=== PATIENT | male | born 1965 | race Caucasian/White ===

== ENCOUNTER 2018-11-12 21:36 | Inpatient (IN) | payer SELFPAY ==
[2018-11-12 22:26] LABS: Glucose Confirmatory 597 mg/dL (70-100)
[2018-11-12] MEDS ORDERED: NS 0.9% 1000 ML** 1,000 ML IV ONE ×2 (22:34→23:52)
[2018-11-12 22:47] LABS: ALT 13 U/L (7-52); AST 20 U/L (13-39); Albumin 4.3 g/dL (3.2-5.2); Albumin/Globulin Ratio 1.2 (1-3); Alkaline Phosphatase 194 U/L (34-104); Anion Gap 18 mmol/L (2-11); BUN/Creatinine Ratio 20.4 (8-20); Blood Urea Nitrogen 20 mg/dL (6-24); C Reactive Protein 11.64 mg/L (<8.01); CO2 Carbon Dioxide 18 mmol/L (22-32); Calcium 10.3 mg/dL (8.6-10.3); Chloride 93 mmol/L (101-111); Globulin 3.7 g/dL (2-4); Potassium 3.9 mmol/L (3.5-5.0); Sodium 129 mmol/L (135-145)
[2018-11-12 22:56] LABS: Glucose 603 mg/dL (70-100)
[2018-11-12 23:11] LABS: Hematocrit 25 % (42-52); Hemoglobin 7.1 g/dL (14.0-18.0); Mean Corpuscular HGB Conc 28 g/dL (31-36); Mean Corpuscular Hemoglobin 16 pg (27-31); Mean Corpuscular Volume 58 fL (80-94); Red Cell Distribution Width 22 % (10.5-15); White Blood Count 6.9 10^3/uL (3.5-10.8)
[2018-11-12 23:24] LABS: ABS Basophils 0.1 10^3/ul (0-0.2); ABS Eosinophils 0.2 10^3/ul (0-0.6); ABS Lymphocytes 1.1 10^3/ul (1.0-4.8); ABS Monocytes 0.8 10^3/ul (0-0.8); ABS Neutrophils 4.6 10^3/ul (1.5-7.7); Eosinophil % 2.9 %; Lymphocyte % 16.6 %; Mean Platelet Volume 9.1 fL (7.4-10.4); Nucleated Red Blood Cells % 0.2; Platelet Count 73 10^3/uL (150-450)
[2018-11-12 23:25] LABS: Microcytosis 3+; Polychromasia 1+
--- NOTE | 2018-11-12 23:28 | ED ---
Complex/Multi-Sys Presentation - HPI Summary HPI Summary: Patient complains of polyuria, polydipsia 3 weeks. Denies fever, cough, sore throat, CP, SOB, N/V/D, abdominal pain, change in urine, change in BM. Does admit to occasional blood in stool from hemorrhoids. Medical history is heartburn. - History Of Current Complaint Chief Complaint: EDDiabeticProb Time Seen by Provider: 11/12/18 22:20 Hx Obtained From: Patient Onset/Duration: Gradual Onset, Lasting Weeks Timing: Intermittent, Lasting: Severity Currently: Moderate Severity Initially: Moderate - Allergies/Home Medications Allergies/Adverse Reactions: Allergies Allergy/AdvReac Type Severity Reaction Status Date / Time No Known Allergies Allergy Verified 11/12/18 22:21 Home Medications: Home Medications NK [No Home Medications Reported] 11/13/18 [History Confirmed 11/13/18] PMH/Surg Hx/FS Hx/Imm Hx Endocrine/Hematology History: Denies: Hx Anticoagulant Therapy Cardiovascular History: Reports: Hx Hypertension Respiratory History: Reports: Other Respiratory Problems/Disorders - HOSPITALIZED FOR PLEURAL EFFUSION 11/2014. History: Reports: Hx Acute Renal Failure - this admission, no history Sensory History: Reports: Hx Contacts or Glasses Opthamlomology History: Reports: Hx Contacts or Glasses EENT History: Denies: Hx Deafness Neurological History: Reports: Hx Seizures - last seizure three weeks ago Psychiatric History: Reports: Hx Anxiety, Hx Depression, Hx Substance Abuse - Surgical History Surgery Procedure, Year, and Place: Right & left inguinal, umbilical hernia surgeries (all 15+ years ago) Hx Anesthesia Reactions: No - Immunization History Date of Tetanus Vaccine: utd Date of Influenza Vaccine: none Infectious Disease History: No Infectious Disease History: Denies: Traveled Outside the [place] in Last 30 Days - Family History Known Family History: Positive: Unknown - Patient adopted - Social History Alcohol Use: None Alcohol Amount: 1+ pints vodka/d Substance Use Type: Reports: None Substance Use Comment - Amount & Last Used: very rarely Smoking Status (MU): Never Smoked Tobacco Review of Systems Constitutional: Negative Eyes: Negative ENT: Negative Cardiovascular: Negative Respiratory: Negative Gastrointestinal: Negative Positive: frequency Musculoskeletal: Negative Skin: Negative Neurological: Negative Psychological: Normal All Other Systems Reviewed And Are Negative: Yes Physical Exam - Summary Physical Exam Summary: Abdomen soft nontender. Lung sounds clear to auscultation bilaterally. Or gallop. No peripheral edema. Triage Information Reviewed: Yes Vital Signs On Initial Exam: Initial Vitals Temp Pulse Resp BP Pulse Ox 99 F 100 20 162/96 99 11/12/18 21:42 11/12/18 21:42 11/12/18 21:42 11/12/18 21:42 11/12/18 21:42 Vital Signs Reviewed: Yes Appearance: Positive: Well-Appearing Skin: Positive: Warm Head/Face: Positive: Normal Head/Face Inspection Eyes: Positive: Normal Neck: Positive: Supple Respiratory/Lung Sounds: Positive: Clear to Auscultation Cardiovascular: Positive: Normal Abdomen Description: Positive: Nontender Musculoskeletal: Positive: Normal Neurological: Positive: Normal Psychiatric: Positive: Normal AVPU Assessment: Alert - Liu Coma Scale Best Eye Response: 4 - Spontaneous Best Motor Response: 6 - Obeys Commands Best Verbal Response: 5 - Oriented Coma Scale Total: 15 Diagnostics - Vital Signs Vital Signs Temp Pulse Resp BP Pulse Ox 11/12/18 21:42 99 F 100 20 162/96 99 - Laboratory Lab Results: Lab Results 11/12/18 11/12/18 11/12/18 Range/Units 21:51 21:57 21:57 WBC (3.5-10.8) 10^3/uL RBC (4.18-5.48) 10^6 /uL Hgb (14.0-18.0) g/dL Hct (42-52) % MCV (80-94) fL MCH (27-31) pg MCHC (31-36) g/dL RDW (10.5-15) % Plt Count (150-450) 10^3/uL MPV (7.4-10.4) fL Neut % (Auto) % Lymph % (Auto) % [place] % (Auto) % Eos % (Auto) % Baso % (Auto) % Absolute Neuts (auto) (1.5-7.7) 10^3/ul Absolute Lymphs (auto) (1.0-4.8) 10^3/ul Absolute Monos (auto) (0-0.8) 10^3/ul Absolute Eos (auto) (0-0.6) 10^3/ul Absolute Basos (auto) (0-0.2) 10^3/ul Absolute Nucleated RBC 10^3/ul Nucleated RBC % Polychromasia Hypochromasia Anisocytosis Microcytosis Hem Pathologist Commnt VBG pH (7.32-7.43) VBG pCO2 (41-51) mmHg VBG pO2 (35-45) mmHg VBG HCO3 (24-28) mmol/L VBG O2 Saturation (70-80) % VBG Base Excess (0.0-4.0) mmol/L Sodium 129 L (135-145) mmol/L Potassium 3.9 (3.5-5.0) mmol/L Chloride 93 L (101-111) mmol/L Carbon Dioxide 18 L (22-32) mmol/L Anion Gap 18 H (2-11) mmol/L BUN 20 (6-24) mg/dL Creatinine 0.98 (0.67-1.17) mg/dL Est GFR ( Amer) 98.0 (>60) Est GFR (Non-Af Amer) 81.0 (>60) BUN/Creatinine Ratio 20.4 H (8-20) Glucose 603 H* (70-100) mg/dL POC Glucose (mg/dL) > 444 H* (70-100) mg/dL Glucose Meter Confirm 597 H* (70-100) mg/dL Lactic Acid 1.4 (0.5-2.0) mmol/L Calcium 10.3 (8.6-10.3) mg/dL Magnesium Pending Iron Pending TIBC Pending % Saturation Pending Unsat Iron Binding Pending Transferrin Pending Ferritin Pending Total Bilirubin 2.00 H (0.2-1.0) mg/dL AST 20 (13-39) U/L ALT 13 (7-52) U/L Alkaline Phosphatase 194 H (34-104) U/L C-Reactive Protein 11.64 H (<8.01) mg/L Total Protein 8.0 (6.4-8.9) g/dL Albumin 4.3 (3.2-5.2) g/dL Globulin 3.7 (2-4) g/dL Albumin/Globulin Ratio 1.2 (1-3) Lipase 236 H (11.0-82.0) U/L TSH Pending 11/12/18 11/12/18 Range/Units 22:35 22:49 WBC 6.9 (3.5-10.8) 10^3/uL RBC 4.30 (4.18-5.48) 10^6 /uL Hgb 7.1 L (14.0-18.0) g/dL Hct 25 L (42-52) % MCV 58 L (80-94) fL MCH 16 L (27-31) pg MCHC 28 L (31-36) g/dL RDW 22 H (10.5-15) % Plt Count 73 L (150-450) 10^3/uL MPV 9.1 (7.4-10.4) fL Neut % (Auto) 67.0 % Lymph % (Auto) 16.6 % [place] % (Auto) 12.3 % Eos % (Auto) 2.9 % Baso % (Auto) 1.2 % Absolute Neuts (auto) 4.6 (1.5-7.7) 10^3/ul Absolute Lymphs (auto) 1.1 (1.0-4.8) 10^3/ul Absolute Monos (auto) 0.8 (0-0.8) 10^3/ul Absolute Eos (auto) 0.2 (0-0.6) 10^3/ul Absolute Basos (auto) 0.1 (0-0.2) 10^3/ul Absolute Nucleated RBC 0.0 10^3/ul Nucleated RBC % 0.2 Polychromasia 1+ Hypochromasia 1+ Anisocytosis 2+ Microcytosis 3+ Hem Pathologist Commnt Pending VBG pH 7.42 (7.32-7.43) VBG pCO2 32 L (41-51) mmHg VBG pO2 57.0 H (35-45) mmHg VBG HCO3 22.4 L (24-28) mmol/L VBG O2 Saturation 86.5 H (70-80) % VBG Base Excess -2.8 L (0.0-4.0) mmol/L Sodium (135-145) mmol/L Potassium (3.5-5.0) mmol/L Chloride (101-111) mmol/L Carbon Dioxide (22-32) mmol/L Anion Gap (2-11) mmol/L BUN (6-24) mg/dL Creatinine (0.67-1.17) mg/dL Est GFR ( Amer) (>60) Est GFR (Non-Af Amer) (>60) BUN/Creatinine Ratio (8-20) Glucose (70-100) mg/dL POC Glucose (mg/dL) (70-100) mg/dL Glucose Meter Confirm (70-100) mg/dL Lactic Acid (0.5-2.0) mmol/L Calcium (8.6-10.3) mg/dL Magnesium Iron TIBC % Saturation Unsat Iron Binding Transferrin Ferritin Total Bilirubin (0.2-1.0) mg/dL AST (13-39) U/L ALT (7-52) U/L Alkaline Phosphatase (34-104) U/L C-Reactive Protein (<8.01) mg/L Total Protein (6.4-8.9) g/dL Albumin (3.2-5.2) g/dL Globulin (2-4) g/dL Albumin/Globulin Ratio (1-3) Lipase (11.0-82.0) U/L TSH Result Diagrams: 11/13/18 16:19 11/13/18 06:25 Lab Statement: Any lab studies that have been ordered have been reviewed, and results considered in the medical decision making process. Complex Multi-Symp Course/Dx Course Of Treatment: Patient complains of polyuria, polydipsia 3 weeks. Denies fever, cough, sore throat, CP, SOB, N/V/D, abdominal pain, change in urine, change in BM. Does admit to occasional blood in stool from hemorrhoids. Medical history is heartburn. Physical exam:Abdomen soft nontender. Lung sounds clear to auscultation bilaterally. Or gallop. No peripheral edema. Vital signs within normal limits. BGL 600. Anion gap 18. Carbon dioxide 18. Lipase 236. No prior history of diabetes. Hemoglobin 7.1. Hematocrit 25. Hemoccult positive. Patient admitted to hospitalist for DKA and anemia. - Diagnoses Provider Diagnoses: DKA (diabetic ketoacidoses), Diabetes mellitus, new onset, Anemia Discharge - Sign-Out/Discharge Documenting (check all that apply): Patient Departure - Discharge Plan Condition: Fair Disposition: ADMITTED TO [facility] - Billing Disposition and Condition Condition: FAIR Disposition: Admitted to [facility]
[2018-11-12 23:32] LABS: Urine Appearance Clear; Urine Bilirubin Negative (Negative); Urine Blood Negative (Negative); Urine Color Straw; Urine Glucose 3+(>=500 mg/dL) (Negative); Urine Ketones 1+ (Negative); Urine Nitrite Negative (Negative); Urine Protein Negative (Negative); Urine Specific Gravity 1.027 (1.010-1.030); Urine Urobilinogen Negative (Negative)
[2018-11-12 23:40] LABS: Total Iron Binding Capacity 539 mcg/dL (250-450); Transferrin 385 mg/dL (203-362)
[2018-11-12 23:42] LABS: % Iron Saturation 3 % (15-55); Iron < 17 ug/dL (50-212)
[2018-11-12] MEDS ORDERED: Al Hydrox/Mg Hydrox/Simet LIQ* 30 ML UDC PO PRN (23:46)
[2018-11-12] MEDS ORDERED: Docusate CAP* 100 MG PO PRN (23:46)
[2018-11-12] MEDS ORDERED: Senna TAB PO PRN (23:46)
[2018-11-12] MEDS ORDERED: Acetaminophen TAB* 325 MG PO PRN (23:46)
[2018-11-12] MEDS ORDERED: Ondansetron INJ* 2 MG/ML VIAL IV PRN (23:46)
[2018-11-12 23:56] LABS: TSH (Thyroid Stimulating Horm) 2.61 mcIU/mL (0.34-5.60)
[2018-11-13 00:02] LABS: Ferritin 7.3 ng/mL (24-336)
[2018-11-13 00:25] LABS: Alcohol < 10 mg/dL (<10)
[2018-11-13] MEDS: NS 0.9% 1000 ML** 1,000 ML IV ONE ×2 (00:30→02:10)
--- NOTE | 2018-11-13 01:29 | HP ---
HISTORY AND PHYSICAL: DATE OF ADMISSION: 11/12/18 TIME OF EVALUATION: 2300. PRIMARY CARE PHYSICIAN: The patient does not have a primary care physician. CHIEF COMPLAINT: Polyuria, polydipsia. HISTORY OF PRESENT ILLNESS: This 52-year-old male with past medical history of prediabetes who presented to emergency room after his partner convinced him of checking his sugar. The partner has diabetes and she has a glucometer. She is also a case packer and sealer/nurse here. He has had about a few weeks of increased nocturia, 4 to 5 times at night and has gotten progressively worse with increased polyuria and polydipsia. He finally checked his sugar this evening and they did record it was so high, so he was finally convinced to come to the emergency room for further evaluation. The patient states that he had a chest cold a few weeks ago, otherwise, no lightheadedness. No dizziness. No chest pain. No shortness of breath. He has been fatigued. No abdominal pain. He has had constipation. He had a bowel movement today where he had strained and there was some blood on the toilet paper. He has had a history of bloody diarrhea when he was in college many years ago. They did a colonoscopy at that time and they thought it was viral and then he had a second colonoscopy many years ago that was unremarkable. He has had a history of diverticulitis in the past and a history of hemorrhoids. The patient denies black stools and just the blood on the toilet paper that he had today. Otherwise, remaining review of systems is negative. In the emergency room, the patient had labs. He is found to be hyperglycemic and anemic. He was given a L of fluid and referred to the hospitalist service for further evaluation. PAST MEDICAL HISTORY: 1. History of diverticulitis. 2. History of hemorrhoids. 3. History of GI bleed. 4. Prediabetes. 5. Constipation. 6. History of alcohol. MEDICATIONS: Prilosec just started a few days ago for a dry cough, was initially b.i.d. and now daily. ALLERGIES: No known drug allergies. FAMILY HISTORY: The patient is adopted. 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 He quit smoking about a year ago, was only smoking 3 cigarettes a day, but in his 20s he smoked a pack per day. The patient has a history of heavy alcohol use. He stopped drinking 6 months ago. He does start and stop in the past. No illicit drug use. Healthcare proxy is Francine who is the case packer and sealer here on the fourth floor. Code status is full code. REVIEW OF SYSTEMS: A 14-point review of systems as mentioned in the HPI, otherwise negative. PHYSICAL EXAMINATION GENERAL: In no acute distress, resting comfortably with his girlfriend at the bedside. VITAL SIGNS: Temp T-max 99, pulse rate 73, respiratory rate 14, oxygen saturation 99% on room air, blood pressure 128/81. HEENT: Head: Normocephalic. Pupils are equal and reactive. Sclerae anicteric. Oropharynx: Mucous membranes moist. NECK: Supple. No lymphadenopathy. RESPIRATORY: Diminished breath sounds with no rhonchi or rales. CARDIAC: Regular rate and rhythm. Soft systolic murmur heard throughout. ABDOMEN: Soft, nontender, nondistended. EXTREMITIES: No clubbing, cyanosis or edema. +2 DP. NEUROLOGIC: Alert and oriented x3. No gross focal neurologic deficits. LABORATORY DATA: White count 6.9, hemoglobin 7.1, hematocrit 25, platelets 73 , MCV of 58, venous pH 7.4. Sodium 129, potassium 3.9, chloride 93, bicarb 18, anion gap 18, glucose 603, lactic acid 1.4, mag of 2, total bili of 2, CRP of 11 , lipase 236. UA shows +1 ketones, +3 glucose. ASSESSMENT: This is a 52-year-old male with past medical history of prediabetes who presents with polyuria, polydipsia and elevated glucose. 1. Hyperosmolar hyperglycemic state. The patient with a mild anion gap. Continue with aggressive fluid rescucitation. No indication for insulin drip. Will start with Lantus 10 units and lispro sliding scale. Check HgbA1c. The patient will benefit from Endocrinology consultation and diabetes education 2. Microcytic anemia. Assessment: The patient denies any black stools. He had some blood on his toilet paper from likely hemorrhoids. His exam in the emergency room showed brown stool and hemorrhoids. However, his H and H has been low in the past, but most recently back in 2014 it was 15. He is asymptomatic, I suspect an occult upper gastrointestinal bleed. Plan: We will continue him on clear liquids. Continue him on pantoprazole p.o. b.i.d. and ferrous sulfate b.i.d. We will contact GI in the morning for likely EGD, check an alcohol level as well though the patient states he has stopped drinking. I suspect this is related to his alcohol use in the past. 3. FEN: As mentioned, clear liquids IV fluids, diabetic diet. 4. DVT prophylaxis: The patient scores moderate. We will place him on SCDs. 5. Thrombocytopenia. I suspect this is related to his heavy alcohol use in the past. 6. Code status: Full code. TIME SPENT: Greater than 45 minutes was spent doing the history and physical, more than half the time spent in direct patient contact. [id number]/CPS #: [id number] [id number]
[2018-11-13] MEDS: Pantoprazole TAB * 40 MG TAB PO SCH ×3 (02:12→21:27)
[2018-11-13 02:28] LABS: Calcium 9.1 mg/dL (8.6-10.3); EGFR African American 122.1 (>60); EGFR Non-African American 100.9 (>60); Potassium 3.5 mmol/L (3.5-5.0)
[2018-11-13] MEDS ORDERED: Dextrose 50% Syringe 50 ML* 25 GM/50 ML SYRINGE IV PUSH PRN (02:37)
[2018-11-13] MEDS ORDERED: NS 0.9% 1000 ML** 1,000 ML IV SCH (02:45)
[2018-11-13 02:52] LABS: Hematocrit 24 % (42-52); Hemoglobin 6.8 g/dL (14.0-18.0)
[2018-11-13] MEDS ORDERED: Insulin GLARGINE(*) 1 UNITS UNIT SUBCUT SCH (03:00)
[2018-11-13 07:13] LABS: Hematocrit 23 % (42-52); Hemoglobin 6.6 g/dL (14.0-18.0); Mean Corpuscular HGB Conc 29 g/dL (31-36); Mean Corpuscular Hemoglobin 17 pg (27-31); Mean Corpuscular Volume 57 fL (80-94); Red Cell Distribution Width 21 % (10.5-15)
[2018-11-13 07:16] LABS: BUN/Creatinine Ratio 20.3 (8-20); Calcium 8.6 mg/dL (8.6-10.3); EGFR African American 146.9 (>60); EGFR Non-African American 121.4 (>60); HDL Cholesterol 28.5 mg/dL; Magnesium 1.7 mg/dL (1.9-2.7); Potassium 3.5 mmol/L (3.5-5.0)
[2018-11-13 08:30] LABS: ABS Basophils 0.1 10^3/ul (0-0.2); ABS Eosinophils 0.2 10^3/ul (0-0.6); ABS Monocytes 0.5 10^3/ul (0-0.8); ABS Neutrophils 3.3 10^3/ul (1.5-7.7); Eosinophil % 4.5 %; Lymphocyte % 20.2 %; Mean Platelet Volume 9.5 fL (7.4-10.4); Nucleated Red Blood Cells % 0.1; Platelet Count 42 10^3/uL (150-450)
[2018-11-13] MEDS: Ferrous Sulfate TAB* 325 MG PO SCH ×2 (08:33→21:27)
[2018-11-13] MEDS: Insulin LISPRO* 1 UNITS UNIT SUBCUT SCH ×3 (08:33→17:16)
--- NOTE | 2018-11-13 09:15 | PN ---
Subjective Date of Service: 11/13/18 Interval History: Patient is feeling well this morning. He reports he does not have a primary care provider because he has moved frequently in the last several years. He has now been in [place] for one year. His urinary frequency/urgency has improved. He denies abd pain, nausea, vomiting ,diarrhea, fever/chills, chest pain, dizziness , difficulty breathing. He has not yet had a bowel movement today. His significant other, Francine the machine adjuster leader case trim who works here at [employer] [place], reports that patient has been sober for 6 months. Previous heavy drinker, about 6 months ago became jaundice and felt ill and has not had a drink since, per Francine. Objective Active Medications: Acetaminophen (Tylenol Tab*) 650 mg PO Q4H PRN PRN Reason: FEVER/PAIN Last Admin: 11/13/18 02:15 Dose: 650 mg Al Hydrox/Mg Hydrox/Simethicone (Maalox Plus*) 30 ml PO Q6H PRN PRN Reason: INDIGESTION Dextrose (D50w Syringe 50 Ml*) 12.5 gm IV PUSH .FOR FS < 60 - SS PRN PRN Reason: FS < 60 Docusate Sodium (Colace Cap*) 100 mg PO BID PRN PRN Reason: CONSTIPATION Ferrous Sulfate (Ferrous Sulfate Tab*) 325 mg PO BID [facility] Last Admin: 11/13/18 08:33 Dose: 325 mg Sodium Chloride (Ns 0.9% 1000 Ml) 1,000 mls @ 150 mls/hr IV PER RATE [facility] Last Admin: 11/13/18 03:43 Dose: 150 mls/hr Insulin Glargine (Lantus(*)) 15 units SUBCUT Q24HR [facility] Last Admin: 11/13/18 03:46 Dose: 15 unit Insulin Human Lispro (Humalog*) 0 units SUBCUT AC [facility]; Protocol Last Admin: 11/13/18 08:33 Dose: 6 units Ondansetron HCl (Zofran Inj*) 4 mg IV Q4H PRN PRN Reason: NAUSEA/VOMITING Pantoprazole Sodium (Protonix Tab*) 40 mg PO BID [facility] Last Admin: 11/13/18 08:33 Dose: 40 mg Senna (Senokot Tab*) 1 tab PO BID PRN PRN Reason: CONSTIPATION Vital Signs - 8 hr 11/13/18 11/13/18 11/13/18 01:24 01:50 02:10 Temperature 100 F 98.2 F Pulse Rate 78 78 75 Respiratory 22 22 16 Rate Blood Pressure 147/89 147/89 140/76 (mmHg) O2 Sat by Pulse 99 99 99 Oximetry Oxygen Devices in Use Now: None Appearance: Middle aged white male, laying comfortably in hospital bed, appearing in NAD Eyes: No Scleral Icterus, PERRLA Ears/Nose/Mouth/Throat: Mucous Membranes Moist Neck: NL Appearance and Movements; NL JVP Respiratory: Symmetrical Chest Expansion and Respiratory Effort, Clear to Auscultation Cardiovascular: NL Sounds; No Murmurs; No JVD, RRR Abdominal: - - abdomen soft, nontender, nondistended Extremities: No Edema, No Clubbing, Cyanosis, - - neg calf tenderness Skin: No Rash or Ulcers Neurological: Alert and Oriented x 3, NL Muscle Strength and Tone Result Diagrams: 11/13/18 16:19 11/13/18 06:25 Additional Lab and Data: Lab Results 11/12/18 11/12/18 11/12/18 Range/Units 21:51 21:57 21:57 WBC (3.5-10.8) 10^3/uL RBC (4.18-5.48) 10^6 /uL Hgb (14.0-18.0) g/dL Hct (42-52) % MCV (80-94) fL MCH (27-31) pg MCHC (31-36) g/dL RDW (10.5-15) % Plt Count (150-450) 10^3/uL MPV (7.4-10.4) fL Neut % (Auto) % Lymph % (Auto) % [place] % (Auto) % Eos % (Auto) % Baso % (Auto) % Absolute Neuts (auto) (1.5-7.7) 10^3/ul Absolute Lymphs (auto) (1.0-4.8) 10^3/ul Absolute Monos (auto) (0-0.8) 10^3/ul Absolute Eos (auto) (0-0.6) 10^3/ul Absolute Basos (auto) (0-0.2) 10^3/ul Absolute Nucleated RBC 10^3/ul Nucleated RBC % Polychromasia Hypochromasia Anisocytosis Microcytosis Hem Pathologist Commnt VBG pH (7.32-7.43) VBG pCO2 (41-51) mmHg VBG pO2 (35-45) mmHg VBG HCO3 (24-28) mmol/L VBG O2 Saturation (70-80) % VBG Base Excess (0.0-4.0) mmol/L Sodium 129 L (135-145) mmol/L Potassium 3.9 (3.5-5.0) mmol/L Chloride 93 L (101-111) mmol/L Carbon Dioxide 18 L (22-32) mmol/L Anion Gap 18 H (2-11) mmol/L BUN 20 (6-24) mg/dL Creatinine 0.98 (0.67-1.17) mg/dL Est GFR ( Amer) 98.0 (>60) Est GFR (Non-Af Amer) 81.0 (>60) BUN/Creatinine Ratio 20.4 H (8-20) Glucose 603 H* (70-100) mg/dL POC Glucose (mg/dL) > 444 H* (70-100) mg/dL Glucose Meter Confirm 597 H* (70-100) mg/dL Lactic Acid 1.4 (0.5-2.0) mmol/L Calcium 10.3 (8.6-10.3) mg/dL Magnesium Pending Iron Pending TIBC Pending % Saturation Pending Unsat Iron Binding Pending Transferrin Pending Ferritin Pending Total Bilirubin 2.00 H (0.2-1.0) mg/dL AST 20 (13-39) U/L ALT 13 (7-52) U/L Alkaline Phosphatase 194 H (34-104) U/L C-Reactive Protein 11.64 H (<8.01) mg/L Total Protein 8.0 (6.4-8.9) g/dL Albumin 4.3 (3.2-5.2) g/dL Globulin 3.7 (2-4) g/dL Albumin/Globulin Ratio 1.2 (1-3) Lipase 236 H (11.0-82.0) U/L TSH Pending 11/12/18 11/12/18 Range/Units 22:35 22:49 WBC 6.9 (3.5-10.8) 10^3/uL RBC 4.30 (4.18-5.48) 10^6 /uL Hgb 7.1 L (14.0-18.0) g/dL Hct 25 L (42-52) % MCV 58 L (80-94) fL MCH 16 L (27-31) pg MCHC 28 L (31-36) g/dL RDW 22 H (10.5-15) % Plt Count 73 L (150-450) 10^3/uL MPV 9.1 (7.4-10.4) fL Neut % (Auto) 67.0 % Lymph % (Auto) 16.6 % [place] % (Auto) 12.3 % Eos % (Auto) 2.9 % Baso % (Auto) 1.2 % Absolute Neuts (auto) 4.6 (1.5-7.7) 10^3/ul Absolute Lymphs (auto) 1.1 (1.0-4.8) 10^3/ul Absolute Monos (auto) 0.8 (0-0.8) 10^3/ul Absolute Eos (auto) 0.2 (0-0.6) 10^3/ul Absolute Basos (auto) 0.1 (0-0.2) 10^3/ul Absolute Nucleated RBC 0.0 10^3/ul Nucleated RBC % 0.2 Polychromasia 1+ Hypochromasia 1+ Anisocytosis 2+ Microcytosis 3+ Hem Pathologist Commnt Pending VBG pH 7.42 (7.32-7.43) VBG pCO2 32 L (41-51) mmHg VBG pO2 57.0 H (35-45) mmHg VBG HCO3 22.4 L (24-28) mmol/L VBG O2 Saturation 86.5 H (70-80) % VBG Base Excess -2.8 L (0.0-4.0) mmol/L Sodium (135-145) mmol/L Potassium (3.5-5.0) mmol/L Chloride (101-111) mmol/L Carbon Dioxide (22-32) mmol/L Anion Gap (2-11) mmol/L BUN (6-24) mg/dL Creatinine (0.67-1.17) mg/dL Est GFR ( Amer) (>60) Est GFR (Non-Af Amer) (>60) BUN/Creatinine Ratio (8-20) Glucose (70-100) mg/dL POC Glucose (mg/dL) (70-100) mg/dL Glucose Meter Confirm (70-100) mg/dL Lactic Acid (0.5-2.0) mmol/L Calcium (8.6-10.3) mg/dL Magnesium Iron TIBC % Saturation Unsat Iron Binding Transferrin Ferritin Total Bilirubin (0.2-1.0) mg/dL AST (13-39) U/L ALT (7-52) U/L Alkaline Phosphatase (34-104) U/L C-Reactive Protein (<8.01) mg/L Total Protein (6.4-8.9) g/dL Albumin (3.2-5.2) g/dL Globulin (2-4) g/dL Albumin/Globulin Ratio (1-3) Lipase (11.0-82.0) U/L TSH Microbiology and Other Data: Microbiology 11/12/18 23:23 Stool Occult Blood (ADRIENNE) - Final Stool Assess/Plan/Problems-Billing Assessment: 52 yo white male with PMHx previous alcohol use disorder, pre-diabetes, hx of GI bleed, hemorrhoids presents to the emergency dept c/o urinary frequenc, nocturia, and one episode of bright red blood per rectum when passing hard stool. Found to have hyperglycemia and anemia. - Patient Problems (1) Microcytic anemia Code(s): D50.9 - IRON DEFICIENCY ANEMIA, UNSPECIFIED SNOMED Code(s): 022285819 Comment: -one episode of bright red blood per rectum on toilet paper after passing hard stool -hx of hemorrhoids, hx of GI bleed -Hgb 7.1 at admission -> 6.6 today -microcytic hypochromic iron deficiency anemia, possibly GI bleed but just one episode BRBPR, possibly a component of underlying anemia of chronic disease in setting of undiagnosed diabetes and prior hx of alcohol use disorder -discontinue po pantoprazole as EGD normal today -awaiting further GI recommendations from Dr. Cifuentes, he is hesitant to perform colonoscopy in setting of thrombocytopenia -patient asymptomatic; has not had BM since admission, no hematemsis, denies chest pain/dizziness -received consent to transfuse from patient; 1 unit PRBCs ordered and will monitor for rxn and trend CBC q8h -ordered iron sucrose daily, to continue x 5 doses (2) Thrombocytopenia Code(s): D69.6 - THROMBOCYTOPENIA, UNSPECIFIED SNOMED Code(s): 011649507 Comment: -prior hx of alcohol use disorder, patient reports he has not had alcohol in 6 months -possibility of bone marrow suppression in setting of alcohol use, possibilty of liver desease -checking PT and PTT -plts downtrending, 73 in ED -> 42 this morning, have since increased to 78 -initial decrease possibly due to dilution -hematology consulted, awaiting recommendations (3) Hyperosmolar hyponatremia Code(s): E87.0 - HYPEROSMOLALITY AND HYPERNATREMIA; E87.1 - HYPO-OSMOLALITY AND HYPONATREMIA SNOMED Code(s): 87816470 Comment: -presented with urinary frequency and elevated blood glucose at home; previous hx of pre-diabetes -glucose 603 and sodium 129 at admission, anion gap 18 -glucose to 278 this morning, hyponatremia resolved, anion gap resolved -patient feeling well this morning, no dizziness and urinary freq resolved -increase insulin glargine to 20U daily with lispro SS as BGs in 200s at all measurements today, continue to monitor -new diabetes diagnosis, see below (4) Diabetes mellitus, type 2 Comment: -pre-diabetic in the past, does not follow with a primary care provider -new diagnosis of DM in this hospitalization -HA1c = 10.7 -prior hx of alcohol use disorder may be a contributing factor; serum alcohol negative at admission -continue consistent carb diet, ordered 20U glargine QAM +SS lispro; adding metformin 500mg; will continue to monitor BG and adjust glargine as needed -pt will need instructions for uptitrating metformin at discharge, would benefit from outpatient follow up with endocrinology -patient without insurance which may complicate discharge medication planning, social work involved (5) DVT prophylaxis Code(s): LYY2096 - SNOMED Code(s): 895835755 Comment: -SCDs in setting of severe anemia (6) Full code status Code(s): Z78.9 - OTHER SPECIFIED HEALTH STATUS SNOMED Code(s): 680096361
[2018-11-13] MEDS ORDERED: fentaNYL* 50 MCG/ML 2 ML VIAL (100 MCG VIAL) ONE (13:26)
[2018-11-13] MEDS ORDERED: Midazolam* 1 MG/ML 10 ML VIAL (10 MG) ONE (13:26)
--- NOTE | 2018-11-13 15:01 | CONS ---
GASTROENTEROLOGY CONSULT: DATE: 11/13/18 CONSULTING PHYSICIAN: Dr. 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 He resisted being tested for this, but finally gave in to his significant other's suggestion and his blood sugar on arrival in the emergency room last night at 10 p.m. was 603. He has been given some treatment and most recently it was 278. Incidentally, he was found to be anemic with a hemoglobin of 7.1 and on repeat 6.8 and 6.6 with MCV 58. He states he has been subject to acid indigestion for quite some time and 2 years ago began taking Prilosec sporadically somewhat at his girlfriend's insistence. He takes ibuprofen a couple of times a week, but insists it is not more. He was drinking heavily until 6 months ago and says he got tired of the lifestyle. He eats an unrestricted diet. He has never had any gastrointestinal workup. He says his prior family physician, Dr. Waldron, placed him on iron and suggested a workup to find the etiology, but he did not come in for the testing. In college, he was having rectal bleeding and had a colonoscopy and a barium enema and some scans and says he does not know the result. This was in [place]. He does not believe there was a second colonoscopy. 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 He is not aware of the workup , but again he does not remember where that was. PAST MEDICAL HISTORY: 1. Diabetes - known to be susceptible and this is his first admission and treatment 2. Hemorrhoidal bleeding. 3. Alcoholism. 4. Chronic GERD. 5. Umbilical hernia repair in [place]. 6. Inguinal hernia repair - in [place]. 7. Anemia - he did not followthrough with suggested workup in 2014; he recalls Dr Waldron suggested iron in about 2010 based on labs done in [place] MEDICATIONS: Prior to this admission just Prilosec sporadically and ibuprofen. ALLERGIES: None. FAMILY HISTORY: He is adopted. SOCIAL HISTORY: He is from [place] originally, worked for a [employer] and then settled in the [facility]. 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 His significant other is a nurse / resource management planner at [employer]. He maintains he quit drinking 6 months ago though that has not been verified. He does not smoke. REVIEW OF SYSTEMS: No history of seizures, CVA, TIA, TB, hemoptysis, [place], arrhythmia, viral hepatitis, renal stones, psoriasis, other skin disorders. PHYSICAL EXAM: He is a sallow complected man, in no distress interviewed alone. He denies knowledge of many aspects of his history and seems to convey he would not be expected to know any of that. He is afebrile, blood pressure 130/70. HEENT exam is unremarkable otherwise. He has no adenopathy. His lungs are clear and heart sounds are regular. The abdomen has an umbilical scar but is symmetric, firm but not tender and enlarged organs are not felt. Rectal is unremarkable with smooth mucosa, no mucus and firmish nodular brown stool (heme negative). Extremities show no edema. Neurologic is nonfocal. IMPRESSION: Profound long-term iron-deficiency anemia with a mild peptic predisposition in recent years though no overt blood loss site and an unusual history of a colon workup 25 to 30 years ago. The rectal exam is quite normal and does not suggest any active colonic disease now so the history from 30 yrs ago is not likely relevant to the current anemia. He certainly could have a colon malignancy. With his alcoholism and use of ibuprofen, the first study will be EGD. His thrombocytopenia could be from splenomegaly from alcoholic liver disease. There could also be bone marrow suppression if the history is inaccurate. His bili is up and INR mildly prolonged though albumin quite normal at 4.3 which is unusual for cirrhosis. He needs some abdominal imaging.and further history. [id number]/[facility] #: [id number] [facility]
[2018-11-13 16:35] LABS: Hematocrit 25 % (42-52); Hemoglobin 7.2 g/dL (14.0-18.0); Mean Corpuscular HGB Conc 29 g/dL (31-36); Mean Corpuscular Hemoglobin 17 pg (27-31); Mean Corpuscular Volume 60 fL (80-94); Red Blood Count 4.11 10^6 /uL (4.18-5.48); Red Cell Distribution Width 23 % (10.5-15); White Blood Count 3.9 10^3/uL (3.5-10.8)
[2018-11-13 16:36] LABS: ABS Basophils 0.1 10^3/ul (0-0.2); ABS Eosinophils 0.2 10^3/ul (0-0.6); ABS Lymphocytes 0.8 10^3/ul (1.0-4.8); ABS Monocytes 0.4 10^3/ul (0-0.8); ABS Neutrophils 2.5 10^3/ul (1.5-7.7); Eosinophil % 4.4 %; Lymphocyte % 21.4 %; Nucleated Red Blood Cells % 0.1
[2018-11-13 16:59] LABS: Platelet Count 78 10^3/uL (150-450)
[2018-11-13] MEDS: metFORMIN* 500 MG TAB PO SCH (18:22)
[2018-11-13] MEDS: Iron Sucrose* 200 MG in NS 0.9% 100 ML* 100 ML IVPB SCH (20:13)
[2018-11-14 00:39] LABS: INR 1.24 (0.82-1.09)
--- NOTE | 2018-11-14 00:40 | PRO ---
DATE: 11/13/18 - ROOM #446 REFERRING PHYSICIAN: Tan Chavez.* PROCEDURE: Upper gastrointestinal endoscopy and biopsy of greater curvature with CLOtest in third portion duodenum for ruling out enteropathy or celiac disease. INDICATION: This 52-year-old man admitted with diabetic hyperosmolar state was found to have severe microcytic anemia. He also had significant thrombocytopenia in the 50 range. He had been an alcoholic, but said he has been sober for 6 months. That history has not been confirmed. Significant other is social services designee on [employer]. ENDOSCOPIST: Dr. Cifuentes. MEDICATIONS: Midazolam 8.5, fentanyl 125. FINDINGS: He is a sallow-complected middle-aged man in no distress. He professes not to know of many aspects of the history. He was positioned left side down and moderate sedation induced with sequential doses of medication. The exam was tolerated very well. ESOPHAGOGASTRODUODENOSCOPY: Larynx - not seen. Esophagus - rather pale appearance to the mucosa, smooth and without erosions. There is some edema distally, but again no erosions. The EG junction at 39 is a little bit loose, but there is no stricture, hiatal hernia, or fundic prolapse. Stomach - the contours of the cardia, fundus, and body are normal. There is a little bit of excess adherent mucus, but no erythema or bleeding. There were no erosions. The antrum appears normal. A CLOtest taken of greater curvature. Duodenum - the pylorus, bulb, and second through fourth portions appear normal with 2 biopsies taken at 30 cm. Following the gastroscopy, digital rectal showed smooth mucosa and formed normal - appearing brown stool and somewhat constipated pellet. IMPRESSION: 1. Mildly loose EG junction. Addendum: Clotest negative ; duodenal Bx normal 2. Normal stomach and duodenum. 3. Thrombocytopenia, cause unclear. 4. Iron-deficiency anemia - cause unclear and clearly a colonoscopy will be indicated once he is stabilized. [id number]/[facility] #: [id number] [facility]
[2018-11-14 00:44] LABS: Hematocrit 26 % (42-52); Hemoglobin 7.3 g/dL (14.0-18.0); Mean Corpuscular HGB Conc 29 g/dL (31-36); Mean Corpuscular Hemoglobin 17 pg (27-31); Mean Corpuscular Volume 60 fL (80-94); Mean Platelet Volume 8.8 fL (7.4-10.4); Platelet Count 54 10^3/uL (150-450); Red Blood Count 4.29 10^6 /uL (4.18-5.48); Red Cell Distribution Width 23 % (10.5-15); White Blood Count 4.9 10^3/uL (3.5-10.8)
[2018-11-14 07:01] LABS: BUN/Creatinine Ratio 11.9 (8-20); Calcium 8.8 mg/dL (8.6-10.3); EGFR African American 151.9 (>60); EGFR Non-African American 125.6 (>60); Potassium 3.3 mmol/L (3.5-5.0)
[2018-11-14 07:08] LABS: Hematocrit 27 % (42-52); Hemoglobin 7.6 g/dL (14.0-18.0); Mean Corpuscular HGB Conc 29 g/dL (31-36); Mean Corpuscular Hemoglobin 17 pg (27-31); Mean Corpuscular Volume 60 fL (80-94); Red Blood Count 4.47 10^6 /uL (4.18-5.48); Red Cell Distribution Width 22 % (10.5-15); White Blood Count 4.4 10^3/uL (3.5-10.8)
[2018-11-14 07:45] LABS: Mean Platelet Volume 8.8 fL (7.4-10.4); Platelet Count 33 10^3/uL (150-450)
[2018-11-14] MEDS: Pantoprazole TAB * 40 MG TAB PO SCH ×2 (08:56→22:23)
[2018-11-14] MEDS: metFORMIN* 500 MG TAB PO SCH (08:56)
[2018-11-14] MEDS: Insulin LISPRO* 1 UNITS UNIT SUBCUT SCH ×3 (08:57→16:49)
[2018-11-14] MEDS: Ferrous Sulfate TAB* 325 MG PO SCH ×2 (08:57→22:23)
[2018-11-14] MEDS: Insulin GLARGINE(*) 1 UNITS UNIT SUBCUT SCH (08:57)
[2018-11-14 09:00] LABS: Albumin 3.7 g/dL (3.2-5.2); Albumin/Globulin Ratio 1.2 (1-3); Globulin 3.1 g/dL (2-4); Indirect Bilirubin 1.1 mg/dL (0.3-1.0); Total Bilirubin 1.8 mg/dL (0.2-1.0); Total Protein 6.8 g/dL (6.4-8.9)
[2018-11-14] MEDS ORDERED: Insulin GLARGINE(*) 1 UNITS UNIT SUBCUT SCH ×2 (09:00→21:00)
--- NOTE | 2018-11-14 09:57 | CONSULT ---
Consultation - Reason for Consultation Reason for Consultation: anemia and thrombocytopenia Ordering Provider: Francine Hahn Chief Complaint: hyperglycemia History of Present Illness: 52 yo M w PMH of prior heavy ETOH use presenting with newly diagnosed uncontrolled diabetes also noted to have marked iron deficiency anemia, positive stool guaiac, and thrombocytopenia. Abdullahi currently has no health insurance and so has not followed with a physician. He had been complaining of polyuria and polydypsia and his girlfriend who is an RN and has a glucometer checked his FS and it was markedly elevated. He was admitted with HONK and HbA1C of 10.7. He was noted to have anemia with a Hb of 7.1 with and MCV of 58 and ferritin <10 and iron saturation of 3%. He was guaiac positive. He is also noted to have marked thrombocytopenia of 33 today. He had an unremarkable upper endoscopy yesterday. He reports a history of very heavy drinking but is clear that he has not had any alcohol in the last 6 months. Allergies/Medications Medication: Acetaminophen (Tylenol Tab*) 650 mg PO Q4H PRN PRN Reason: FEVER/PAIN Last Admin: 11/13/18 02:15 Dose: 650 mg Al Hydrox/Mg Hydrox/Simethicone (Maalox Plus*) 30 ml PO Q6H PRN PRN Reason: INDIGESTION Dextrose (D50w Syringe 50 Ml*) 12.5 gm IV PUSH .FOR FS < 60 - SS PRN PRN Reason: FS < 60 Docusate Sodium (Colace Cap*) 100 mg PO BID PRN PRN Reason: CONSTIPATION Last Admin: 11/13/18 21:28 Dose: 100 mg Ferrous Sulfate (Ferrous Sulfate Tab*) 325 mg PO BID [facility] Last Admin: 11/14/18 08:57 Dose: 325 mg Iron Sucrose 200 mg/ Sodium (Chloride) 110 mls @ 110 mls/hr IVPB Q24H [place]KE Stop: 11/17/18 20:29 Last Admin: 11/13/18 20:13 Dose: 110 mls/hr Insulin Glargine (Lantus(*)) 20 units SUBCUT DAILY [facility] Last Admin: 11/14/18 08:57 Dose: 20 units Insulin Human Lispro (Humalog*) 0 units SUBCUT AC [facility]; Protocol Last Admin: 11/14/18 08:57 Dose: 6 units Metformin HCl (Glucophage*) 500 mg PO DAILY [facility] Last Admin: 11/14/18 08:56 Dose: 500 mg Ondansetron HCl (Zofran Inj*) 4 mg IV Q4H PRN PRN Reason: NAUSEA/VOMITING Pantoprazole Sodium (Protonix Tab*) 40 mg PO BID [facility] Last Admin: 11/14/18 08:56 Dose: 40 mg Senna (Senokot Tab*) 1 tab PO BID PRN PRN Reason: CONSTIPATION Last Admin: 11/13/18 21:28 Dose: 1 tab Allergies/Adverse Reactions: Allergies Allergy/AdvReac Type Severity Reaction Status Date / Time No Known Allergies Allergy Verified 11/12/18 22:21 History - Past Medical History Other History: hernia repair x 3 - Family History Hx Family Cancer: No - Social History Hx Alcohol Use: Yes - reports cessation 6 mths ago Hx Tobacco Use: No Hx Substance Use: Yes - etoh Occupation/School: [employer] Review of Systems - Review of Systems Dermatology: Positive: Normal HEENT: Positive: Normal Eyes: Positive: Normal Thyroid: Positive: Normal Pulmonary: Positive: Normal, Cough Cardiology: Positive: Normal Gastroenterology: Positive: Constipation - blood on toilet paper x 1 Genital - Urinary: Positive: Normal Endocrinology: Positive: Diabetes Mellitus - new diagnosis, Polydipsia, Polyuria Neurology: Positive: Normal Psychiatry: Positive: Normal Physical Exam - Physical Exam Physical Examination: Vital Signs Temp Pulse Resp BP Pulse Ox 98.1 F 90 20 134/82 99 11/14/18 08:48 11/14/18 08:48 11/14/18 08:48 11/14/18 08:48 11/14/18 08:48 perr eomi op moist cta bl s1 s2 nl soft nt no obvious hsm no le edema no tremor A+O x 3, nonfocal neurological exam Results - Lab Results Lab Results: 11/12/18 11/12/18 11/12/18 21:51 21:57 21:57 WBC RBC Hgb Hct MCV MCH MCHC RDW Plt Count MPV Neut % (Auto) Lymph % (Auto) [place] % (Auto) Eos % (Auto) Baso % (Auto) Absolute Neuts (auto) Absolute Lymphs (auto) Absolute Monos (auto) Absolute Eos (auto) Absolute Basos (auto) Absolute Nucleated RBC Nucleated RBC % Polychromasia Hypochromasia Anisocytosis Microcytosis INR (Anticoag Therapy) APTT VBG pH VBG pCO2 VBG pO2 VBG HCO3 VBG O2 Saturation VBG Base Excess Sodium 129 L Potassium 3.9 Chloride 93 L Carbon Dioxide 18 L Anion Gap 18 H BUN 20 Creatinine 0.98 Est GFR ( Amer) 98.0 Est GFR (Non-Af Amer) 81.0 BUN/Creatinine Ratio 20.4 H Glucose 603 H* POC Glucose (mg/dL) > 444 H* Glucose Meter Confirm 597 H* Hemoglobin A1c Lactic Acid 1.4 Calcium 10.3 Magnesium 2.0 Iron < 17 L TIBC 539 H % Saturation 3 L Unsat Iron Binding < 524 Transferrin 385 H Ferritin 7.3 L Total Bilirubin 2.00 H Direct Bilirubin Indirect Bilirubin AST 20 ALT 13 Alkaline Phosphatase 194 H C-Reactive Protein 11.64 H Total Protein 8.0 Albumin 4.3 Globulin 3.7 Albumin/Globulin Ratio 1.2 Triglycerides Cholesterol LDL Cholesterol HDL Cholesterol Lipase 236 H TSH 2.61 Urine Color Urine Appearance Urine pH Ur Specific [place] Urine Protein Urine Ketones Urine Blood Urine Nitrate Urine Bilirubin Urine Urobilinogen Ur Leukocyte Esterase Urine Glucose Serum Alcohol < 10 Blood Type Antibody Screen Crossmatch 11/12/18 11/12/18 11/12/18 22:35 22:49 22:49 WBC 6.9 RBC 4.30 Hgb 7.1 L Hct 25 L MCV 58 L MCH 16 L MCHC 28 L RDW 22 H Plt Count 73 L MPV 9.1 Neut % (Auto) 67.0 Lymph % (Auto) 16.6 [place] % (Auto) 12.3 Eos % (Auto) 2.9 Baso % (Auto) 1.2 Absolute Neuts (auto) 4.6 Absolute Lymphs (auto) 1.1 Absolute Monos (auto) 0.8 Absolute Eos (auto) 0.2 Absolute Basos (auto) 0.1 Absolute Nucleated RBC 0.0 Nucleated RBC % 0.2 Polychromasia 1+ Hypochromasia 1+ Anisocytosis 2+ Microcytosis 3+ INR (Anticoag Therapy) APTT VBG pH 7.42 VBG pCO2 32 L VBG pO2 57.0 H VBG HCO3 22.4 L VBG O2 Saturation 86.5 H VBG Base Excess -2.8 L Sodium Potassium Chloride Carbon Dioxide Anion Gap BUN Creatinine Est GFR ( Amer) Est GFR (Non-Af Amer) BUN/Creatinine Ratio Glucose POC Glucose (mg/dL) Glucose Meter Confirm Hemoglobin A1c 10.7 H Lactic Acid Calcium Magnesium Iron TIBC % Saturation Unsat Iron Binding Transferrin Ferritin Total Bilirubin Direct Bilirubin Indirect Bilirubin AST ALT Alkaline Phosphatase C-Reactive Protein Total Protein Albumin Globulin Albumin/Globulin Ratio Triglycerides Cholesterol LDL Cholesterol HDL Cholesterol Lipase TSH Urine Color Urine Appearance Urine pH Ur Specific [place] Urine Protein Urine Ketones Urine Blood Urine Nitrate Urine Bilirubin Urine Urobilinogen Ur Leukocyte Esterase Urine Glucose Serum Alcohol Blood Type Antibody Screen Crossmatch 11/12/18 11/12/18 11/13/18 23:20 23:58 01:32 WBC RBC Hgb Hct MCV MCH MCHC RDW Plt Count MPV Neut % (Auto) Lymph % (Auto) [place] % (Auto) Eos % (Auto) Baso % (Auto) Absolute Neuts (auto) Absolute Lymphs (auto) Absolute Monos (auto) Absolute Eos (auto) Absolute Basos (auto) Absolute Nucleated RBC Nucleated RBC % Polychromasia Hypochromasia Anisocytosis Microcytosis INR (Anticoag Therapy) APTT VBG pH VBG pCO2 VBG pO2 VBG HCO3 VBG O2 Saturation VBG Base Excess Sodium Potassium Chloride Carbon Dioxide Anion Gap BUN Creatinine Est GFR ( Amer) Est GFR (Non-Af Amer) BUN/Creatinine Ratio Glucose POC Glucose (mg/dL) 408 H* Glucose Meter Confirm Hemoglobin A1c Lactic Acid Calcium Magnesium Iron TIBC % Saturation Unsat Iron Binding Transferrin Ferritin Total Bilirubin Direct Bilirubin Indirect Bilirubin AST ALT Alkaline Phosphatase C-Reactive Protein Total Protein Albumin Globulin Albumin/Globulin Ratio Triglycerides Cholesterol LDL Cholesterol HDL Cholesterol Lipase TSH Urine Color Straw Urine Appearance Clear Urine pH 5.0 Ur Specific [place] 1.027 Urine Protein Negative Urine Ketones 1+ A Urine Blood Negative Urine Nitrate Negative Urine Bilirubin Negative Urine Urobilinogen Negative Ur Leukocyte Esterase Negative Urine Glucose 3+(>=500 mg/dl) A Serum Alcohol Blood Type O Positive Antibody Screen Negative Crossmatch See Detail 11/13/18 11/13/18 11/13/18 02:06 02:06 06:25 WBC RBC Hgb 6.8 L Hct 24 L MCV MCH MCHC RDW Plt Count MPV Neut % (Auto) Lymph % (Auto) [place] % (Auto) Eos % (Auto) Baso % (Auto) Absolute Neuts (auto) Absolute Lymphs (auto) Absolute Monos (auto) Absolute Eos (auto) Absolute Basos (auto) Absolute Nucleated RBC Nucleated RBC % Polychromasia Hypochromasia Anisocytosis Microcytosis INR (Anticoag Therapy) APTT VBG pH VBG pCO2 VBG pO2 VBG HCO3 VBG O2 Saturation VBG Base Excess Sodium 132 L 135 Potassium 3.5 3.5 Chloride 100 L 104 Carbon Dioxide 19 L 20 L Anion Gap 13 H 11 BUN 17 14 Creatinine 0.81 0.69 Est GFR ( Amer) 122.1 146.9 Est GFR (Non-Af Amer) 100.9 121.4 BUN/Creatinine Ratio 21.0 H 20.3 H Glucose 363 H 278 H POC Glucose (mg/dL) Glucose Meter Confirm Hemoglobin A1c Lactic Acid Calcium 9.1 8.6 Magnesium 1.7 L Iron TIBC % Saturation Unsat Iron Binding Transferrin Ferritin Total Bilirubin Direct Bilirubin Indirect Bilirubin AST ALT Alkaline Phosphatase C-Reactive Protein Total Protein Albumin Globulin Albumin/Globulin Ratio Triglycerides 89 Cholesterol 115 LDL Cholesterol 69 HDL Cholesterol 28.5 Lipase TSH Urine Color Urine Appearance Urine pH Ur Specific [place] Urine Protein Urine Ketones Urine Blood Urine Nitrate Urine Bilirubin Urine Urobilinogen Ur Leukocyte Esterase Urine Glucose Serum Alcohol Blood Type Antibody Screen Crossmatch 11/13/18 11/13/18 11/13/18 06:25 06:25 07:47 WBC 5.0 RBC 4.00 L Hgb 6.6 L Hct 23 L MCV 57 L MCH 17 L MCHC 29 L RDW 21 H Plt Count 42 L MPV 9.5 Neut % (Auto) 65.2 Lymph % (Auto) 20.2 [place] % (Auto) 9.1 Eos % (Auto) 4.5 Baso % (Auto) 1.0 Absolute Neuts (auto) 3.3 Absolute Lymphs (auto) 1.0 Absolute Monos (auto) 0.5 Absolute Eos (auto) 0.2 Absolute Basos (auto) 0.1 Absolute Nucleated RBC 0.0 Nucleated RBC % 0.1 Polychromasia Hypochromasia Anisocytosis Microcytosis INR (Anticoag Therapy) APTT VBG pH VBG pCO2 VBG pO2 VBG HCO3 VBG O2 Saturation VBG Base Excess Sodium Potassium Chloride Carbon Dioxide Anion Gap BUN Creatinine Est GFR ( Amer) Est GFR (Non-Af Amer) BUN/Creatinine Ratio Glucose POC Glucose (mg/dL) 284 H Glucose Meter Confirm Hemoglobin A1c 10.7 H Lactic Acid Calcium Magnesium Iron TIBC % Saturation Unsat Iron Binding Transferrin Ferritin Total Bilirubin Direct Bilirubin Indirect Bilirubin AST ALT Alkaline Phosphatase C-Reactive Protein Total Protein Albumin Globulin Albumin/Globulin Ratio Triglycerides Cholesterol LDL Cholesterol HDL Cholesterol Lipase TSH Urine Color Urine Appearance Urine pH Ur Specific [place] Urine Protein Urine Ketones Urine Blood Urine Nitrate Urine Bilirubin Urine Urobilinogen Ur Leukocyte Esterase Urine Glucose Serum Alcohol Blood Type Antibody Screen Crossmatch 11/13/18 11/13/18 11/13/18 11:37 16:16 16:19 WBC 3.9 RBC 4.11 L Hgb 7.2 L Hct 25 L MCV 60 L MCH 17 L MCHC 29 L RDW 23 H Plt Count 78 L D MPV Not Reportable Neut % (Auto) 63.2 Lymph % (Auto) 21.4 [place] % (Auto) 9.7 Eos % (Auto) 4.4 Baso % (Auto) 1.3 Absolute Neuts (auto) 2.5 Absolute Lymphs (auto) 0.8 L Absolute Monos (auto) 0.4 Absolute Eos (auto) 0.2 Absolute Basos (auto) 0.1 Absolute Nucleated RBC 0.0 Nucleated RBC % 0.1 Polychromasia Hypochromasia Anisocytosis Microcytosis INR (Anticoag Therapy) APTT VBG pH VBG pCO2 VBG pO2 VBG HCO3 VBG O2 Saturation VBG Base Excess Sodium Potassium Chloride Carbon Dioxide Anion Gap BUN Creatinine Est GFR ( Amer) Est GFR (Non-Af Amer) BUN/Creatinine Ratio Glucose POC Glucose (mg/dL) 276 H 276 H Glucose Meter Confirm Hemoglobin A1c Lactic Acid Calcium Magnesium Iron TIBC % Saturation Unsat Iron Binding Transferrin Ferritin Total Bilirubin Direct Bilirubin Indirect Bilirubin AST ALT Alkaline Phosphatase C-Reactive Protein Total Protein Albumin Globulin Albumin/Globulin Ratio Triglycerides Cholesterol LDL Cholesterol HDL Cholesterol Lipase TSH Urine Color Urine Appearance Urine pH Ur Specific [place] Urine Protein Urine Ketones Urine Blood Urine Nitrate Urine Bilirubin Urine Urobilinogen Ur Leukocyte Esterase Urine Glucose Serum Alcohol Blood Type Antibody Screen Crossmatch 11/13/18 11/13/18 11/14/18 20:22 23:01 00:14 WBC 4.9 RBC 4.29 Hgb 7.3 L Hct 26 L MCV 60 L MCH 17 L MCHC 29 L RDW 23 H Plt Count 54 L MPV 8.8 Neut % (Auto) Lymph % (Auto) [place] % (Auto) Eos % (Auto) Baso % (Auto) Absolute Neuts (auto) Absolute Lymphs (auto) Absolute Monos (auto) Absolute Eos (auto) Absolute Basos (auto) Absolute Nucleated RBC Nucleated RBC % Polychromasia Hypochromasia Anisocytosis Microcytosis INR (Anticoag Therapy) APTT VBG pH VBG pCO2 VBG pO2 VBG HCO3 VBG O2 Saturation VBG Base Excess Sodium Potassium Chloride Carbon Dioxide Anion Gap BUN Creatinine Est GFR ( Amer) Est GFR (Non-Af Amer) BUN/Creatinine Ratio Glucose POC Glucose (mg/dL) 329 H 279 H Glucose Meter Confirm Hemoglobin A1c Lactic Acid Calcium Magnesium Iron TIBC % Saturation Unsat Iron Binding Transferrin Ferritin Total Bilirubin Direct Bilirubin Indirect Bilirubin AST ALT Alkaline Phosphatase C-Reactive Protein Total Protein Albumin Globulin Albumin/Globulin Ratio Triglycerides Cholesterol LDL Cholesterol HDL Cholesterol Lipase TSH Urine Color Urine Appearance Urine pH Ur Specific [place] Urine Protein Urine Ketones Urine Blood Urine Nitrate Urine Bilirubin Urine Urobilinogen Ur Leukocyte Esterase Urine Glucose Serum Alcohol Blood Type Antibody Screen Crossmatch 11/14/18 11/14/18 11/14/18 00:14 03:12 06:16 WBC 4.4 RBC 4.47 Hgb 7.6 L Hct 27 L MCV 60 L MCH 17 L MCHC 29 L RDW 22 H Plt Count 33 L MPV 8.8 Neut % (Auto) Lymph % (Auto) [place] % (Auto) Eos % (Auto) Baso % (Auto) Absolute Neuts (auto) Absolute Lymphs (auto) Absolute Monos (auto) Absolute Eos (auto) Absolute Basos (auto) Absolute Nucleated RBC Nucleated RBC % Polychromasia Hypochromasia Anisocytosis Microcytosis INR (Anticoag Therapy) 1.24 H APTT 36.0 VBG pH VBG pCO2 VBG pO2 VBG HCO3 VBG O2 Saturation VBG Base Excess Sodium Potassium Chloride Carbon Dioxide Anion Gap BUN Creatinine Est GFR ( Amer) Est GFR (Non-Af Amer) BUN/Creatinine Ratio Glucose POC Glucose (mg/dL) 275 H Glucose Meter Confirm Hemoglobin A1c Lactic Acid Calcium Magnesium Iron TIBC % Saturation Unsat Iron Binding Transferrin Ferritin Total Bilirubin Direct Bilirubin Indirect Bilirubin AST ALT Alkaline Phosphatase C-Reactive Protein Total Protein Albumin Globulin Albumin/Globulin Ratio Triglycerides Cholesterol LDL Cholesterol HDL Cholesterol Lipase TSH Urine Color Urine Appearance Urine pH Ur Specific [place] Urine Protein Urine Ketones Urine Blood Urine Nitrate Urine Bilirubin Urine Urobilinogen Ur Leukocyte Esterase Urine Glucose Serum Alcohol Blood Type Antibody Screen Crossmatch 11/14/18 11/14/18 11/14/18 06:16 07:41 08:24 WBC RBC Hgb Hct MCV MCH MCHC RDW Plt Count MPV Neut % (Auto) Lymph % (Auto) [place] % (Auto) Eos % (Auto) Baso % (Auto) Absolute Neuts (auto) Absolute Lymphs (auto) Absolute Monos (auto) Absolute Eos (auto) Absolute Basos (auto) Absolute Nucleated RBC Nucleated RBC % Polychromasia Hypochromasia Anisocytosis Microcytosis INR (Anticoag Therapy) APTT VBG pH VBG pCO2 VBG pO2 VBG HCO3 VBG O2 Saturation VBG Base Excess Sodium 136 Potassium 3.3 L Chloride 104 Carbon Dioxide 22 Anion Gap 10 BUN 8 Creatinine 0.67 Est GFR ( Amer) 151.9 Est GFR (Non-Af Amer) 125.6 BUN/Creatinine Ratio 11.9 Glucose 261 H POC Glucose (mg/dL) 284 H Glucose Meter Confirm Hemoglobin A1c Lactic Acid Calcium 8.8 Magnesium Iron TIBC % Saturation Unsat Iron Binding Transferrin Ferritin Total Bilirubin 1.80 H Direct Bilirubin 0.70 H Indirect Bilirubin 1.1 H AST 22 ALT 12 Alkaline Phosphatase 117 H C-Reactive Protein Total Protein 6.8 Albumin 3.7 Globulin 3.1 Albumin/Globulin Ratio 1.2 Triglycerides Cholesterol LDL Cholesterol HDL Cholesterol Lipase TSH Urine Color Urine Appearance Urine pH Ur Specific [place] Urine Protein Urine Ketones Urine Blood Urine Nitrate Urine Bilirubin Urine Urobilinogen Ur Leukocyte Esterase Urine Glucose Serum Alcohol Blood Type Antibody Screen Crossmatch Assessment and Plan Impression: 52 yo M w prior heavy ETOH use presenting with newly diagnosed uncontrolled diabetes and found to have profound iron deficiency anemia with guaiac positive stools of yet unclear etiology as well as thrombocytopenia. The differential diagnosis for his thrombocytopenia includes viral (HIV/hepatitis C), ETOH suppression of marrow (though he denies), B12 deficiency (I have ordered a level ), cirrhosis with resultant splenomegaly (US ordered this am) or primary marrow process. If above work up is unremarkable I would pursue a bone marrow biopsy. We will continue to follow with you.
[2018-11-14 12:17] LABS: Hepatitis C Antibody Negative (Negative)
[2018-11-14] MEDS: KCL 20 MEQ/100 ML IVPREMIX* 20 MEQ/100 ML BAG IV SCH ×3 (13:42→18:28)
[2018-11-14] MEDS: Iron Sucrose* 200 MG in NS 0.9% 100 ML* 100 ML IVPB SCH (19:53)
--- NOTE | 2018-11-14 20:35 | PN ---
Subjective Date of Service: 11/14/18 Interval History: Patient feeling well. No complaints. has not yet had BM at time of eval. Denies fever/chills, abd pain, chest pain, difficulty breathing, dizziness, urinary frequency. Objective Active Medications: Acetaminophen (Tylenol Tab*) 650 mg PO Q4H PRN PRN Reason: FEVER/PAIN Last Admin: 11/13/18 02:15 Dose: 650 mg Al Hydrox/Mg Hydrox/Simethicone (Maalox Plus*) 30 ml PO Q6H PRN PRN Reason: INDIGESTION Dextrose (D50w Syringe 50 Ml*) 12.5 gm IV PUSH .FOR FS < 60 - SS PRN PRN Reason: FS < 60 Docusate Sodium (Colace Cap*) 100 mg PO BID PRN PRN Reason: CONSTIPATION Last Admin: 11/13/18 21:28 Dose: 100 mg Ferrous Sulfate (Ferrous Sulfate Tab*) 325 mg PO BID [facility] Last Admin: 11/14/18 08:57 Dose: 325 mg Iron Sucrose 200 mg/ Sodium (Chloride) 110 mls @ 110 mls/hr IVPB Q24H [facility] Stop: 11/17/18 20:29 Last Admin: 11/14/18 19:53 Dose: 110 mls/hr Insulin Glargine (Lantus(*)) 20 units SUBCUT DAILY [facility] Last Admin: 11/14/18 08:57 Dose: 20 units Insulin Glargine (Lantus(*)) 10 units SUBCUT Q24H [facility] Insulin Human Lispro (Humalog*) 0 units SUBCUT AC [facility]; Protocol Last Admin: 11/14/18 16:49 Dose: 2 units Metformin HCl (Glucophage*) 500 mg PO DAILY [facility] Last Admin: 11/14/18 08:56 Dose: 500 mg Ondansetron HCl (Zofran Inj*) 4 mg IV Q4H PRN PRN Reason: NAUSEA/VOMITING Pantoprazole Sodium (Protonix Tab*) 40 mg PO BID [facility] Last Admin: 11/14/18 08:56 Dose: 40 mg Senna (Senokot Tab*) 1 tab PO BID PRN PRN Reason: CONSTIPATION Last Admin: 11/13/18 21:28 Dose: 1 tab Vital Signs - 8 hr 11/14/18 15:23 Temperature 98.3 F Pulse Rate 75 Respiratory 20 Rate Blood Pressure 135/78 (mmHg) O2 Sat by Pulse 99 Oximetry Oxygen Devices in Use Now: None Appearance: middle age white male, laying comfortably in bed appearing in NAD Eyes: No Scleral Icterus, PERRLA Ears/Nose/Mouth/Throat: Mucous Membranes Moist Neck: NL Appearance and Movements; NL JVP Respiratory: Symmetrical Chest Expansion and Respiratory Effort, Clear to Auscultation Cardiovascular: NL Sounds; No Murmurs; No JVD, RRR Abdominal: NL Sounds; No Tenderness; No Distention Extremities: No Edema, No Clubbing, Cyanosis Skin: No Rash or Ulcers Neurological: Alert and Oriented x 3, NL Muscle Strength and Tone Result Diagrams: 11/14/18 06:16 11/14/18 06:16 Additional Lab and Data: Lab Results 11/12/18 11/12/18 11/12/18 Range/Units 21:51 21:57 21:57 WBC (3.5-10.8) 10^3/uL RBC (4.18-5.48) 10^6 /uL Hgb (14.0-18.0) g/dL Hct (42-52) % MCV (80-94) fL MCH (27-31) pg MCHC (31-36) g/dL RDW (10.5-15) % Plt Count (150-450) 10^3/uL MPV (7.4-10.4) fL Neut % (Auto) % Lymph % (Auto) % [place] % (Auto) % Eos % (Auto) % Baso % (Auto) % Absolute Neuts (auto) (1.5-7.7) 10^3/ul Absolute Lymphs (auto) (1.0-4.8) 10^3/ul Absolute Monos (auto) (0-0.8) 10^3/ul Absolute Eos (auto) (0-0.6) 10^3/ul Absolute Basos (auto) (0-0.2) 10^3/ul Absolute Nucleated RBC 10^3/ul Nucleated RBC % Polychromasia Hypochromasia Anisocytosis Microcytosis Hem Pathologist Commnt VBG pH (7.32-7.43) VBG pCO2 (41-51) mmHg VBG pO2 (35-45) mmHg VBG HCO3 (24-28) mmol/L VBG O2 Saturation (70-80) % VBG Base Excess (0.0-4.0) mmol/L Sodium 129 L (135-145) mmol/L Potassium 3.9 (3.5-5.0) mmol/L Chloride 93 L (101-111) mmol/L Carbon Dioxide 18 L (22-32) mmol/L Anion Gap 18 H (2-11) mmol/L BUN 20 (6-24) mg/dL Creatinine 0.98 (0.67-1.17) mg/dL Est GFR ( Amer) 98.0 (>60) Est GFR (Non-Af Amer) 81.0 (>60) BUN/Creatinine Ratio 20.4 H (8-20) Glucose 603 H* (70-100) mg/dL POC Glucose (mg/dL) > 444 H* (70-100) mg/dL Glucose Meter Confirm 597 H* (70-100) mg/dL Lactic Acid 1.4 (0.5-2.0) mmol/L Calcium 10.3 (8.6-10.3) mg/dL Magnesium Pending Iron Pending TIBC Pending % Saturation Pending Unsat Iron Binding Pending Transferrin Pending Ferritin Pending Total Bilirubin 2.00 H (0.2-1.0) mg/dL AST 20 (13-39) U/L ALT 13 (7-52) U/L Alkaline Phosphatase 194 H (34-104) U/L C-Reactive Protein 11.64 H (<8.01) mg/L Total Protein 8.0 (6.4-8.9) g/dL Albumin 4.3 (3.2-5.2) g/dL Globulin 3.7 (2-4) g/dL Albumin/Globulin Ratio 1.2 (1-3) Lipase 236 H (11.0-82.0) U/L TSH Pending 11/12/18 11/12/18 Range/Units 22:35 22:49 WBC 6.9 (3.5-10.8) 10^3/uL RBC 4.30 (4.18-5.48) 10^6 /uL Hgb 7.1 L (14.0-18.0) g/dL Hct 25 L (42-52) % MCV 58 L (80-94) fL MCH 16 L (27-31) pg MCHC 28 L (31-36) g/dL RDW 22 H (10.5-15) % Plt Count 73 L (150-450) 10^3/uL MPV 9.1 (7.4-10.4) fL Neut % (Auto) 67.0 % Lymph % (Auto) 16.6 % [place] % (Auto) 12.3 % Eos % (Auto) 2.9 % Baso % (Auto) 1.2 % Absolute Neuts (auto) 4.6 (1.5-7.7) 10^3/ul Absolute Lymphs (auto) 1.1 (1.0-4.8) 10^3/ul Absolute Monos (auto) 0.8 (0-0.8) 10^3/ul Absolute Eos (auto) 0.2 (0-0.6) 10^3/ul Absolute Basos (auto) 0.1 (0-0.2) 10^3/ul Absolute Nucleated RBC 0.0 10^3/ul Nucleated RBC % 0.2 Polychromasia 1+ Hypochromasia 1+ Anisocytosis 2+ Microcytosis 3+ Hem Pathologist Commnt Pending VBG pH 7.42 (7.32-7.43) VBG pCO2 32 L (41-51) mmHg VBG pO2 57.0 H (35-45) mmHg VBG HCO3 22.4 L (24-28) mmol/L VBG O2 Saturation 86.5 H (70-80) % VBG Base Excess -2.8 L (0.0-4.0) mmol/L Sodium (135-145) mmol/L Potassium (3.5-5.0) mmol/L Chloride (101-111) mmol/L Carbon Dioxide (22-32) mmol/L Anion Gap (2-11) mmol/L BUN (6-24) mg/dL Creatinine (0.67-1.17) mg/dL Est GFR ( Amer) (>60) Est GFR (Non-Af Amer) (>60) BUN/Creatinine Ratio (8-20) Glucose (70-100) mg/dL POC Glucose (mg/dL) (70-100) mg/dL Glucose Meter Confirm (70-100) mg/dL Lactic Acid (0.5-2.0) mmol/L Calcium (8.6-10.3) mg/dL Magnesium Iron TIBC % Saturation Unsat Iron Binding Transferrin Ferritin Total Bilirubin (0.2-1.0) mg/dL AST (13-39) U/L ALT (7-52) U/L Alkaline Phosphatase (34-104) U/L C-Reactive Protein (<8.01) mg/L Total Protein (6.4-8.9) g/dL Albumin (3.2-5.2) g/dL Globulin (2-4) g/dL Albumin/Globulin Ratio (1-3) Lipase (11.0-82.0) U/L TSH Microbiology and Other Data: Microbiology 11/12/18 23:23 Stool Occult Blood (ADRIENNE) - Final Stool Assess/Plan/Problems-Billing Assessment: 52 yo white male with PMHx previous alcohol use disorder, pre-diabetes, hx of GI bleed, hemorrhoids presents to the emergency dept c/o urinary frequenc, nocturia, and one episode of bright red blood per rectum when passing hard stool. Found to have hyperglycemia and anemia. - Patient Problems (1) Microcytic anemia Code(s): D50.9 - IRON DEFICIENCY ANEMIA, UNSPECIFIED SNOMED Code(s): 415448892 Comment: -one episode of bright red blood per rectum on toilet paper after passing hard stool -hx of hemorrhoids, hx of GI bleed -has received 1 unit PRBC during this admission -Hgb stable, to 7.6 today, will continue to monitor -microcytic hypochromic iron deficiency anemia, possibly GI bleed but just one episode BRBPR, possibly a component of underlying anemia of chronic disease in setting of undiagnosed diabetes and prior hx of alcohol use disorder -awaiting further GI recommendations from Dr. Cifuentes, he is hesitant to perform colonoscopy in setting of thrombocytopenia -patient asymptomatic; has not had BM since admission, no hematemsis, denies chest pain/dizziness -ordered iron sucrose daily, to continue x 5 doses (2) Thrombocytopenia Code(s): D69.6 - THROMBOCYTOPENIA, UNSPECIFIED SNOMED Code(s): 481129853 Comment: -prior hx of alcohol use disorder, patient reports he has not had alcohol in 6 months -possibility of bone marrow suppression in setting of alcohol use, possibilty of liver desease -checking PT and PTT -plts downtrending, 73 in ED -> 42 this morning, have since increased to 78 -initial decrease possibly due to dilution -abd US demonstrates mild hepatosplenomegaly, hep C negative -hematology consulted, possibility of bone marrow biopsy (3) Hyperosmolar hyponatremia Code(s): E87.0 - HYPEROSMOLALITY AND HYPERNATREMIA; E87.1 - HYPO-OSMOLALITY AND HYPONATREMIA SNOMED Code(s): 77990384 Comment: -presented with urinary frequency and elevated blood glucose at home; previous hx of pre-diabetes -glucose 603 and sodium 129 at admission, anion gap 18 -glucose to 278 this morning, hyponatremia resolved, anion gap resolved -resolved -new diabetes diagnosis, see below (4) Diabetes mellitus, type 2 Comment: -pre-diabetic in the past, does not follow with a primary care provider -new diagnosis of DM in this hospitalization -HA1c = 10.7 -prior hx of alcohol use disorder may be a contributing factor; serum alcohol negative at admission -continue consistent carb diet, ordered 20U glargine QAM +SS lispro; continue metformin 500mg for now but will need uptitration later; added 10U glargine PM and will continue to monitor -ordered endocrine consult, appreciate Dr. Edward's recommendations -patient without insurance which may complicate discharge medication planning, social work involved (5) DVT prophylaxis Code(s): ZIH9241 - SNOMED Code(s): 728648931 Comment: -SCDs in setting of severe anemia (6) Full code status Code(s): Z78.9 - OTHER SPECIFIED HEALTH STATUS SNOMED Code(s): 260809303
[2018-11-14 21:01] LABS: BUN/Creatinine Ratio 9.3 (8-20); Calcium 9.4 mg/dL (8.6-10.3); EGFR African American 113.9 (>60); EGFR Non-African American 94.1 (>60); Potassium 3.8 mmol/L (3.5-5.0)
[2018-11-15 06:44] LABS: Hematocrit 27 % (42-52); Mean Corpuscular HGB Conc 29 g/dL (31-36); Mean Corpuscular Hemoglobin 18 pg (27-31); Mean Corpuscular Volume 61 fL (80-94); Red Blood Count 4.52 10^6 /uL (4.18-5.48); Red Cell Distribution Width 23 % (10.5-15); White Blood Count 4.8 10^3/uL (3.5-10.8)
[2018-11-15 06:48] LABS: Calcium 9.3 mg/dL (8.6-10.3); Potassium 3.4 mmol/L (3.5-5.0)
[2018-11-15 06:54] LABS: BUN/Creatinine Ratio 10.5 (8-20); EGFR African American 131.4 (>60); EGFR Non-African American 108.6 (>60)
[2018-11-15 08:17] LABS: Mean Platelet Volume 9.3 fL (7.4-10.4); Platelet Count 55 10^3/uL (150-450)
--- NOTE | 2018-11-15 08:23 | CONSULT ---
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 His insulin requirement is at least 20 units/day (0.2 units/ kg/day) based on glucose results obtained during this admission. Due to severe presentation with ketosis, I recommend that this be given as 1-shot basal insulin. He should be started on glipizide and metformin, as below. A low- carbohydrate diet was encouraged. PLAN: - start insulin glargine 25 units at night, pen preferred - reduce dose by 5 units if morning blood glucose less than 90 - increase dose by 2 units if morning blood glucose more than 150 for 2 days in a row - if glargine not an option due to insurance, is NPH insulin 15 units AM, 10 units PM - start glipizide XL 10mg daily - start metformin XR 750mg at night - check blood glucose twice daily - scripts needed: pen needles (glargine) or syringes (NPH), meter, strips, lancets #50 each - check C-peptide and GAD65 antibody from AM sample (order placed) - return to endocrinology in 2 weeks SUBJECTIVE: History of Present Illness: 52 yo M with history of prediabetes and alcoholism, now presenting with acute hyperglycemia. He moved from [place] to [place] in the past year and lost insurance coverage, so he has not been seen in >1 year. In the past several weeks, he reports severe polydipsia/polyuria and polyphagia with weight loss. No recent or acute illness. He has continued to drink some alcohol during this time but has reduced consumption from prior levels (up to 1L vodka/ day). He has no known complications from diabetes. He received SQ insulin for correction of hyperglycemia and did not require IV insulin. Separately, he was found to have pancytopenia and hepatosplenomegaly without apparent cirrhosis or varices to explain his history of GI bleed. These findings have been evaluated separately by GI and heme/onc. Past Medical History: 1. Prediabetes 2. Alcoholism 3. Distant LGIB Medications Prior to Admission: NK [No Home Medications Reported] 11/13/18 [History Confirmed 11/13/18] Inpatient Medications: Acetaminophen (Tylenol Tab*) 650 mg PO Q4H PRN PRN Reason: FEVER/PAIN Last Admin: 11/13/18 02:15 Dose: 650 mg Al Hydrox/Mg Hydrox/Simethicone (Maalox Plus*) 30 ml PO Q6H PRN PRN Reason: INDIGESTION Dextrose (D50w Syringe 50 Ml*) 12.5 gm IV PUSH .FOR FS < 60 - SS PRN PRN Reason: FS < 60 Docusate Sodium (Colace Cap*) 100 mg PO BID PRN PRN Reason: CONSTIPATION Last Admin: 11/13/18 21:28 Dose: 100 mg Ferrous Sulfate (Ferrous Sulfate Tab*) 325 mg PO BID [facility] Last Admin: 11/15/18 08:29 Dose: 325 mg Iron Sucrose 200 mg/ Sodium (Chloride) 110 mls @ 110 mls/hr IVPB Q24H [facility] Stop: 11/17/18 20:29 Last Admin: 11/14/18 19:53 Dose: 110 mls/hr Insulin Glargine (Lantus(*)) 20 units SUBCUT DAILY [facility] Last Admin: 11/15/18 08:30 Dose: 20 units Insulin Glargine (Lantus(*)) 10 units SUBCUT Q24H [facility] Last Admin: 11/14/18 22:23 Dose: 10 units Insulin Human Lispro (Humalog*) 0 units SUBCUT AC [facility]; Protocol Last Admin: 11/15/18 12:21 Dose: 10 units Metformin HCl (Glucophage*) 500 mg PO DAILY [facility] Last Admin: 11/15/18 08:29 Dose: 500 mg Ondansetron HCl (Zofran Inj*) 4 mg IV Q4H PRN PRN Reason: NAUSEA/VOMITING Pantoprazole Sodium (Protonix Tab*) 40 mg PO BID [facility] Last Admin: 11/15/18 08:30 Dose: 40 mg Senna (Senokot Tab*) 1 tab PO BID PRN PRN Reason: CONSTIPATION Last Admin: 11/13/18 21:28 Dose: 1 tab Allergies/Intolerances: NKDA 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 Family History: Diabetes. Review of Systems: 12 system review is otherwise negative. OBJECTIVE: Temp Pulse Resp BP Pulse Ox 97.5 F 73 16 121/76 100 11/15/18 07:35 11/15/18 07:35 11/15/18 07:35 11/15/18 07:35 11/15/18 07:35 General: alert, pleasant, oriented, no distress ENT: neck supple, no thyromegaly, no bruit is heard Chest: CTAB, no wheezing or crackles CV: RRR, no murmur Abdomen: soft, non-tender Extremities: no edema, distal pulses intact Skin: warm, dry, no rash Neuro: grossly intact motor/sensory in extremities Psych: restricted affect, pleasant Labs: Glucose Results 11/13/18 11:00 276 11/13/18 19:00 329 11/13/18 23:00 279 11/14/18 03:00 275 11/14/18 07:00 284 - 20G, 6L 11/14/18 11:00 286 - 6L 11/14/18 15:00 153 - 2L 11/14/18 19:00 290 11/14/18 23:00 342 - 10G 11/15/18 03:00 299 - 6L 11/15/18 07:00 380 - 10L WBC 4.8 10^3/uL (3.5-10.8) 11/15/18 05:30 RBC 4.52 10^6 /uL (4.18-5.48) 11/15/18 05:30 Hgb 8.0 g/dL (14.0-18.0) L 11/15/18 05:30 Hct 27 % (42-52) L 11/15/18 05:30 MCV 61 fL (80-94) L 11/15/18 05:30 MCH 18 pg (27-31) L 11/15/18 05:30 MCHC 29 g/dL (31-36) L 11/15/18 05:30 RDW 23 % (10.5-15) H 11/15/18 05:30 Plt Count 55 10^3/uL (150-450) L D 11/15/18 05:30 MPV 9.3 fL (7.4-10.4) 11/15/18 05:30 Neut % (Auto) 63.2 % 11/13/18 16:19 Lymph % (Auto) 21.4 % 11/13/18 16:19 [place] % (Auto) 9.7 % 11/13/18 16:19 Eos % (Auto) 4.4 % 11/13/18 16:19 Baso % (Auto) 1.3 % 11/13/18 16:19 Absolute Neuts (auto) 2.5 10^3/ul (1.5-7.7) 11/13/18 16:19 Absolute Lymphs (auto) 0.8 10^3/ul (1.0-4.8) L 11/13/18 16:19 Absolute Monos (auto) 0.4 10^3/ul (0-0.8) 11/13/18 16: Absolute Eos (auto) 0.2 10^3/ul (0-0.6) 11/13/18 16: Absolute Basos (auto) 0.1 10^3/ul (0-0.2) 11/13/18 16: Absolute Nucleated RBC 0.0 10^3/ul 11/13/18 16: Nucleated RBC % 0.1 11/13/18 16:19 Polychromasia 1+ 11/12/18 22:49 Hypochromasia 1+ 11/12/18 22:49 Anisocytosis 2+ 11/12/18 22:49 Microcytosis 3+ 11/12/18 22:49 Hem Pathologist Commnt 11/12/18 22:49 INR (Anticoag Therapy) 1.24 (0.82-1.09) H 11/14/18 00:14 APTT 36.0 seconds (26.0-38.0) 11/14/18 00:14 VBG pH 7.42 (7.32-7.43) 11/12/18 22:35 VBG pCO2 32 mmHg (41-51) L 11/12/18 22:35 VBG pO2 57.0 mmHg (35-45) H 11/12/18 22:35 VBG HCO3 22.4 mmol/L (24-28) L 11/12/18 22:35 VBG O2 Saturation 86.5 % (70-80) H 11/12/18 22:35 VBG Base Excess -2.8 mmol/L (0.0-4.0) L 11/12/18 22:35 Sodium 138 mmol/L (135-145) 11/15/18 05:30 Potassium 3.4 mmol/L (3.5-5.0) L 11/15/18 05:30 Chloride 106 mmol/L (101-111) 11/15/18 05:30 Carbon Dioxide 22 mmol/L (22-32) 11/15/18 05:30 Anion Gap 10 mmol/L (2-11) 11/15/18 05:30 BUN 8 mg/dL (6-24) 11/15/18 05:30 Creatinine 0.76 mg/dL (0.67-1.17) 11/15/18 05:30 Est GFR ( Amer) 131.4 (>60) 11/15/18 05:30 Est GFR (Non-Af Amer) 108.6 (>60) 11/15/18 05:30 BUN/Creatinine Ratio 10.5 (8-20) 11/15/18 05:30 Glucose 277 mg/dL (70-100) H 11/15/18 05:30 POC Glucose (mg/dL) 283 mg/dL (70-100) H 11/15/18 07:21 Glucose Meter Confirm 597 mg/dL (70-100) H* 11/12/18 21:57 Hemoglobin A1c 10.7 % (4.0-5.6) H 11/13/18 06:25 Lactic Acid 1.4 mmol/L (0.5-2.0) 11/12/18 21:57 Calcium 9.3 mg/dL (8.6-10.3) 11/15/18 05:30 Magnesium 1.7 mg/dL (1.9-2.7) L 11/13/18 06:25 Iron < 17 ug/dL (50-212) L 11/12/18 21:57 TIBC 539 mcg/dL (250-450) H 11/12/18 21:57 % Saturation 3 % (15-55) L 11/12/18 21:57 Unsat Iron Binding < 524 ug/dL 11/12/18 21:57 Transferrin 385 mg/dL (203-362) H 11/12/18 21:57 Ferritin 7.3 ng/mL (24-336) L 11/12/18 21:57 Total Bilirubin 1.80 mg/dL (0.2-1.0) H 11/14/18 08:24 Direct Bilirubin 0.70 mg/dL (0.03-0.18) H 11/14/18 08:24 Indirect Bilirubin 1.1 mg/dL (0.3-1.0) H 11/14/18 08:24 AST 22 U/L (13-39) 11/14/18 08:24 ALT 12 U/L (7-52) 11/14/18 08:24 Alkaline Phosphatase 117 U/L (34-104) H 11/14/18 08:24 C-Reactive Protein 11.64 mg/L (<8.01) H 11/12/18 21:57 Total Protein 6.8 g/dL (6.4-8.9) 11/14/18 08:24 Albumin 3.7 g/dL (3.2-5.2) 11/14/18 08:24 Globulin 3.1 g/dL (2-4) 11/14/18 08:24 Albumin/Globulin Ratio 1.2 (1-3) 11/14/18 08:24 Triglycerides 89 mg/dL 11/13/18 06:25 Cholesterol 115 mg/dL 11/13/18 06:25 LDL Cholesterol 69 mg/dL 11/13/18 06:25 HDL Cholesterol 28.5 mg/dL 11/13/18 06:25 Lipase 236 U/L (11.0-82.0) H 11/12/18 21:57 Vitamin B12 779 pg/mL (180-914) 11/14/18 08:24 TSH 2.61 mcIU/mL (0.34-5.60) 11/12/18 21:57 Urine Color Straw 11/12/18 23:20 Urine Appearance Clear 11/12/18 23:20 Urine pH 5.0 (5-9) 11/12/18 23:20 Ur Specific [place] 1.027 (1.010-1.030) 11/12/18 23:20 Urine Protein Negative (Negative) 11/12/18 23:20 Urine Ketones 1+ (Negative) A 11/12/18 23:20 Urine Blood Negative (Negative) 11/12/18 23:20 Urine Nitrate Negative (Negative) 11/12/18 23:20 Urine Bilirubin Negative (Negative) 11/12/18 23:20 Urine Urobilinogen Negative (Negative) 11/12/18 23:20 Ur Leukocyte Esterase Negative (Negative) 11/12/18 23:20 Urine Glucose 3+(>=500 mg/dl) (Negative) A 11/12/18 23:20 Serum Alcohol < 10 mg/dL (<10) 11/12/18 21:57 Hepatitis C Antibody Negative (Negative) 11/14/18 09:46 Hepatitis C Ab Index 0.01 s/c 11/14/18 09:46 Blood Type O Positive 11/12/18 23:58 Antibody Screen Negative 11/12/18 23:58 Crossmatch See Detail 11/12/18 23:58
[2018-11-15] MEDS: metFORMIN* 500 MG TAB PO SCH (08:29)
[2018-11-15] MEDS: Ferrous Sulfate TAB* 325 MG PO SCH ×2 (08:29→20:31)
[2018-11-15] MEDS: Insulin GLARGINE(*) 1 UNITS UNIT SUBCUT SCH (08:30)
[2018-11-15] MEDS: Insulin LISPRO* 1 UNITS UNIT SUBCUT SCH ×3 (08:30→17:33)
[2018-11-15] MEDS: Pantoprazole TAB * 40 MG TAB PO SCH ×2 (08:30→20:32)
--- NOTE | 2018-11-15 08:52 | PN ---
Progress Note - Progress Note Date of Service: 11/15/18 SOAP: Subjective: after extensive discussion this am, Abdullahi admits to continuing alcohol abuse. abd US with hepatosplenomegaly. Objective: Vital Signs Temp Pulse Resp BP Pulse Ox 97.5 F 73 16 121/76 100 11/15/18 07:35 11/15/18 07:35 11/15/18 07:35 11/15/18 07:35 11/15/18 07:35 perr eomi op moist cta bl s1 s2 nl soft, nt +HSM no le edema A+O x 3, nonfocal neurological exam. Laboratory Results - last 24 hr 11/12/18 11/14/18 11/14/18 22:49 08:24 09:46 WBC RBC Hgb Hct MCV MCH MCHC RDW Plt Count MPV Hem Pathologist Commnt Sodium Potassium Chloride Carbon Dioxide Anion Gap BUN Creatinine Est GFR ( Amer) Est GFR (Non-Af Amer) BUN/Creatinine Ratio Glucose POC Glucose (mg/dL) Calcium Total Bilirubin 1.80 H Direct Bilirubin 0.70 H Indirect Bilirubin 1.1 H AST 22 ALT 12 Alkaline Phosphatase 117 H Total Protein 6.8 Albumin 3.7 Globulin 3.1 Albumin/Globulin Ratio 1.2 Vitamin B12 779 Hepatitis C Antibody Negative Hepatitis C Ab Index 0.01 11/14/18 11/14/18 11/14/18 11:45 16:17 19:53 WBC RBC Hgb Hct MCV MCH MCHC RDW Plt Count MPV Hem Pathologist Commnt Sodium Potassium Chloride Carbon Dioxide Anion Gap BUN Creatinine Est GFR ( Amer) Est GFR (Non-Af Amer) BUN/Creatinine Ratio Glucose POC Glucose (mg/dL) 286 H 153 H 290 H Calcium Total Bilirubin Direct Bilirubin Indirect Bilirubin AST ALT Alkaline Phosphatase Total Protein Albumin Globulin Albumin/Globulin Ratio Vitamin B12 Hepatitis C Antibody Hepatitis C Ab Index 11/14/18 11/14/18 11/15/18 20:35 23:43 03:35 WBC RBC Hgb Hct MCV MCH MCHC RDW Plt Count MPV Hem Pathologist Commnt Sodium 136 Potassium 3.8 Chloride 105 Carbon Dioxide 22 Anion Gap 9 BUN 8 Creatinine 0.86 Est GFR ( Amer) 113.9 Est GFR (Non-Af Amer) 94.1 BUN/Creatinine Ratio 9.3 Glucose 271 H POC Glucose (mg/dL) 342 H 299 H Calcium 9.4 Total Bilirubin Direct Bilirubin Indirect Bilirubin AST ALT Alkaline Phosphatase Total Protein Albumin Globulin Albumin/Globulin Ratio Vitamin B12 Hepatitis C Antibody Hepatitis C Ab Index 11/15/18 11/15/18 11/15/18 05:30 05:30 07:21 WBC 4.8 RBC 4.52 Hgb 8.0 L Hct 27 L MCV 61 L MCH 18 L MCHC 29 L RDW 23 H Plt Count 55 L D MPV 9.3 Hem Pathologist Commnt Sodium 138 Potassium 3.4 L Chloride 106 Carbon Dioxide 22 Anion Gap 10 BUN 8 Creatinine 0.76 Est GFR ( Amer) 131.4 Est GFR (Non-Af Amer) 108.6 BUN/Creatinine Ratio 10.5 Glucose 277 H POC Glucose (mg/dL) 283 H Calcium 9.3 Total Bilirubin Direct Bilirubin Indirect Bilirubin AST ALT Alkaline Phosphatase Total Protein Albumin Globulin Albumin/Globulin Ratio Vitamin B12 Hepatitis C Antibody Hepatitis C Ab Index Acetaminophen (Tylenol Tab*) 650 mg PO Q4H PRN PRN Reason: FEVER/PAIN Last Admin: 11/13/18 02:15 Dose: 650 mg Al Hydrox/Mg Hydrox/Simethicone (Maalox Plus*) 30 ml PO Q6H PRN PRN Reason: INDIGESTION Dextrose (D50w Syringe 50 Ml*) 12.5 gm IV PUSH .FOR FS < 60 - SS PRN PRN Reason: FS < 60 Docusate Sodium (Colace Cap*) 100 mg PO BID PRN PRN Reason: CONSTIPATION Last Admin: 11/13/18 21:28 Dose: 100 mg Ferrous Sulfate (Ferrous Sulfate Tab*) 325 mg PO BID [facility] Last Admin: 11/15/18 08:29 Dose: 325 mg Iron Sucrose 200 mg/ Sodium (Chloride) 110 mls @ 110 mls/hr IVPB Q24H [facility] Stop: 11/17/18 20:29 Last Admin: 11/14/18 19:53 Dose: 110 mls/hr Insulin Glargine (Lantus(*)) 20 units SUBCUT DAILY [facility] Last Admin: 11/15/18 08:30 Dose: 20 units Insulin Glargine (Lantus(*)) 10 units SUBCUT Q24H [facility] Last Admin: 11/14/18 22:23 Dose: 10 units Insulin Human Lispro (Humalog*) 0 units SUBCUT AC [facility]; Protocol Last Admin: 11/15/18 08:30 Dose: 6 units Metformin HCl (Glucophage*) 500 mg PO DAILY [facility] Last Admin: 11/15/18 08:29 Dose: 500 mg Ondansetron HCl (Zofran Inj*) 4 mg IV Q4H PRN PRN Reason: NAUSEA/VOMITING Pantoprazole Sodium (Protonix Tab*) 40 mg PO BID [facility] Last Admin: 11/15/18 08:30 Dose: 40 mg Senna (Senokot Tab*) 1 tab PO BID PRN PRN Reason: CONSTIPATION Last Admin: 11/13/18 21:28 Dose: 1 tab Assessment: 52 yo M w PMH of ETOH abuse admitted with newly diagnosed uncontrolled diabetes but also BRENDEN in the setting of being guaiac positive and thrombocytopenia in the setting of active alcohol use and likely cirrhosis with resultant splenomegaly. I had a very leah conversation with Abdullahi about his need for ETOH cessation. I do think IF he can remain sober and he continues to have liver dysfunction that he will need evaluation by a special education administrator. We discussed some support measures, including both AA (and we discussed daily meetings at [facility] that he can find a list of on line) and CARS. Given that he is guaiac positive AND 52 he will also need a colonoscopy, though I will defer the timing of this to GI. Biopsy would be difficult with a low platelet count, but if he had an obvious malignancy or varices this would be helpful to know. Without insurance currently it may be prudent to do this now. I have asked him to follow up in my office in 6-8 weeks time.
--- NOTE | 2018-11-15 14:54 | PN ---
Subjective Date of Service: 11/15/18 Interval History: Mr. Ladd reports that he is feeling fine. He denies chest pain, SOB, nausea, or abdominal pain. He denies blood in the stool. Objective Active Medications: Acetaminophen (Tylenol Tab*) 650 mg PO Q4H PRN Al Hydrox/Mg Hydrox/Simethicone (Maalox Plus*) 30 ml PO Q6H PRN Dextrose (D50w Syringe 50 Ml*) 12.5 gm IV PUSH .FOR FS < 60 - SS PRN Docusate Sodium (Colace Cap*) 100 mg PO BID PRN Ferrous Sulfate (Ferrous Sulfate Tab*) 325 mg PO BID LUKE Iron Sucrose 200 mg/ Sodium (Chloride) 110 mls @ 110 mls/hr IVPB Q24H LUKE Insulin Glargine (Lantus(*)) 20 units SUBCUT DAILY LUKE Insulin Glargine (Lantus(*)) 10 units SUBCUT Q24H LUKE Insulin Human Lispro (Humalog*) 0 units SUBCUT AC LUKE; Protocol Metformin HCl (Glucophage*) 500 mg PO DAILY LUKE Ondansetron HCl (Zofran Inj*) 4 mg IV Q4H PRN Pantoprazole Sodium (Protonix Tab*) 40 mg PO BID LUKE Senna (Senokot Tab*) 1 tab PO BID PRN Vital Signs: Temp Pulse Resp BP Pulse Ox 97.0 F 86 20 111/72 100 11/15/18 11:47 11/15/18 11:47 11/15/18 11:47 11/15/18 11:47 11/15/18 11:47 Oxygen Devices in Use Now: None Appearance: Male lying in bed in NAD Eyes: No Scleral Icterus Respiratory: Symmetrical Chest Expansion and Respiratory Effort, Clear to Auscultation Cardiovascular: NL Sounds; No Murmurs; No JVD, No Edema Abdominal: NL Sounds; No Tenderness; No Distention Skin: No Rash or Ulcers Neurological: Alert and Oriented x 3, NL Muscle Strength and Tone Nutrition: Taking PO's Result Diagrams: 11/15/18 05:30 11/15/18 05:30 Additional Lab and Data: . Microbiology and Other Data: . Assess/Plan/Problems-Billing Assessment: Mr. Ladd is a 52 yo white male with PMHx previous alcohol use disorder, pre- diabetes, hx of GI bleed, hemorrhoids presents to the emergency dept c/o urinary frequency, nocturia, and one episode of bright red blood per rectum when passing hard stool. Found to have hyperglycemia with new diagnosis DM and anemia/thrombocytopenia secondary to hepatosplenomegaly and chronic alcoholism. - Patient Problems (1) Thrombocytopenia Status: Acute Comment: - Pt admitting to hematology that he has been abusing alcohol. Suspect thrombocytopenia related to hepatosplenomegaly - Plts stable (2) Microcytic anemia Comment: - Hgb stable at 8.0 s/p one unit of PRBC this hospitalization - Suspect secondary to hepatosplenomegaly due to alcoholism. Appreciate consult from hematology - However, did have one episode of bright red blood per rectum on toilet paper after passing hard stool. Hx of hemorrhoids, hx of GI bleed. - Recommend consideration for outpatient colonoscopy if thrombocytopenia resolves. Appreciate Dr. Cifuentes consult. - Continue iron sucrose daily, to continue x 5 doses (3) Diabetes mellitus, type 2 Comment: - BGs remain elevated - pre-diabetic in the past, does not follow with a primary care provider - HgbA1c = 10.7 - Awaiting consultation from Dr. Edward - continue consistent carb diet, increased lantus to 25 units in AM and 15 units in PM. Continue SSI coverage with meals. - patient without insurance which may complicate discharge medication planning, social work involved (4) Hyperosmolar hyponatremia Comment: - Resolved - Presented with urinary frequency and elevated blood glucose at home; previous hx of pre-diabetes (5) DVT prophylaxis Comment: -SCDs in setting of severe anemia (6) Full code status Comment: Status and Disposition: Inpatient. Anticipate discharge to home when medically stable.
[2018-11-15] MEDS ORDERED: Insulin GLARGINE(*) 1 UNITS UNIT SUBCUT SCH (15:15)
[2018-11-15] MEDS: Iron Sucrose* 200 MG in NS 0.9% 100 ML* 100 ML IVPB SCH (20:34)
[2018-11-16] MEDS: Insulin LISPRO* 1 UNITS UNIT SUBCUT SCH ×3 (08:59→17:20)
[2018-11-16] MEDS: Ferrous Sulfate TAB* 325 MG PO SCH (08:59)
[2018-11-16] MEDS: metFORMIN* 500 MG TAB PO SCH (08:59)
[2018-11-16] MEDS: Pantoprazole TAB * 40 MG TAB PO SCH (08:59)
[2018-11-16] MEDS ORDERED: Insulin GLARGINE(*) 1 UNITS UNIT SUBCUT SCH (09:00)
[2018-11-16 16:19] VITALS: BP 117/78
--- NOTE | 2018-11-17 12:49 | DS ---
CC: [facility] * HOSPITAL MEDICINE DISCHARGE SUMMARY: DATE OF ADMISSION: 11/13/18 DATE OF DISCHARGE: 11/16/18 PRIMARY CARE PROVIDER: [facility]. ATTENDING PHYSICIAN: Dr. Courtney Hannon * (dictation provided by Carlie Jordan NP ). PRIMARY DIAGNOSES: 1. New onset type 2 diabetes. 2. Anemia and thrombocytopenia thought to be secondary to hepatomegaly and splenomegaly in the setting of alcohol abuse and potential cirrhosis. 3. Hypoosmolar hyponatremia. MEDICATIONS AT THE TIME OF DISCHARGE: 1. Glipizide 10 mg p.o. daily. 2. Pantoprazole 40 mg p.o. daily. 3. Metformin ER 750 mg p.o. at bedtime. 4. Lantus insulin 25 units in the a.m. and 15 units in the p.m. 5. Ferrous sulfate 325 mg p.o. b.i.d. HOSPITAL COURSE: Mr. Ladd is a 52-year-old male who presented for polyuria and polydipsia to the emergency room on 11/13/18, with concern for hyperglycemia. Please see the dictated H and P from Dr. Lisa Jose for complete details. The patient has a reported history of prediabetes. His partner was a nurse and had a blood glucose monitor at home and given his symptoms of increased urination and thirst, he allowed her to check the blood sugar and found that it was greater than it could be measured by the glucometer and therefore, he was convinced to come to the emergency room. In the emergency room, he had labs which showed that he had a sodium of 129, bicarbonate of 18, and anion gap of 18, and glucose of 603. He had anemia with a hemoglobin of 7.1, hematocrit 25, and platelet count 73, showing a thrombocytopenia as well. He had an upper GI endoscopy with Dr. Cifuentes, who found a normal stomach and duodenum and no clear cause of his iron deficiency anemia or thrombocytopenia. The patient had an abdominal ultrasound, which showed mild hepatosplenomegaly. The patient was seen in consultation by Dr. Lupe Bravo from Hematology given his anemia and thrombocytopenia. The patient denied alcohol abuse at that point and said he had not drunk since the previous fall. The suspicion for differential diagnosis for thrombocytopenia included viral etiology, suppression of bone marrow though the patient had denied, B12 deficiency, cirrhosis, primary marrow process. The patient ultimately required 1 unit of packed red blood cells and with this his anemia has remained stable with a hemoglobin of 8.0. His platelet count on discharge was 55. The patient had a followup with Hematology who spoke to him and was able to obtain from him that he actually has been drinking heavily. The current suspicion is that his anemia and thrombocytopenia is related to ongoing alcohol abuse and hepatosplenomegaly. In terms of his blood sugar, he is now on Lantus and metformin and with this, he had reasonable control of his blood sugar, last blood sugar being about 200 prior to discharge. He did have a hemoglobin A1c of 10.7. He was seen in consultation by Dr. Tomasz Edward, who recommended the regimen as noted above. Mr. Ladd is medically stable for discharge to home. He will be following up with Dr. Edward regarding management of diabetes. He will be following up with [facility] regarding obtaining a PCP and will be following up with Dr. Cifuentes because as though we think the anemia is related to his alcoholism and chronic hepatosplenomegaly, he did have a positive guaiac stool here in the hospital and once his platelets are stable, we would like for him to follow up with a colonoscopy. DISPOSITION: Home. DIET: Low carb, low fat, low salt. ACTIVITY: As tolerated. FOLLOWUP PLANS: 1. Follow up with Dr. Cifuentes regarding potential for colonoscopy. 2. Follow up with Dr. Tomasz Edward regarding diabetes management. 3. Follow up with [facility] regarding ongoing management of chronic medical problems and coordination of care. TIME SPENT: Approximately 60 minutes was spent in the discharge of this patient , more than half the time was spent with the patient at the bedside reviewing the events leading up to and during this hospitalization, performing the physical examination, and reviewing my plan of care. CARLIE JORDAN NP [id number]/[facility] #: [id number] LUBA
[2018-11-21 12:12] LABS: Anti GAD 65 Antibody 0.01 nmol/L (<= 0.02)
== END 2018-11-16 18:10 | disposition home or self-care (01) | DRG 808 ==
LOC: ED 21:36 → MEDTELE 23:46 → OBSVTOIN 11-14 14:00
PROVIDERS: ADMIT Pediatrics; ATTEND Hospitalist
PROC: 0DB98ZX Excision of Duodenum, Via Natural or Artificial Opening Endoscopic, Diagnostic (ICD-10-PCS; principal; 2018-11-13)
PROC: 0DB78ZX Excision of Stomach, Pylorus, Via Natural or Artificial Opening Endoscopic, Diagnostic (ICD-10-PCS; 2018-11-13)
PROC: 30233N1 Transfusion of Nonautologous Red Blood Cells into Peripheral Vein, Percutaneous Approach (ICD-10-PCS; 2018-11-13)
DX: D61.818 Other pancytopenia (principal); E11.00 Type 2 diabetes mellitus with hyperosmolarity without nonketotic hyperglycemic-hyperosmolar coma (NKHHC); E87.1 Hypo-osmolality and hyponatremia; K64.9 Unspecified hemorrhoids; I10 Essential (primary) hypertension; F41.9 Anxiety disorder, unspecified; F32.9 Major depressive disorder, single episode, unspecified; R40.2362 Coma scale, best motor response, obeys commands, at arrival to emergency department; R40.2142 Coma scale, eyes open, spontaneous, at arrival to emergency department; R40.2252 Coma scale, best verbal response, oriented, at arrival to emergency department; K74.60 Unspecified cirrhosis of liver; R16.2 Hepatomegaly with splenomegaly, not elsewhere classified; K57.90 Diverticulosis of intestine, part unspecified, without perforation or abscess without bleeding; K21.9 Gastro-esophageal reflux disease without esophagitis; F10.20 Alcohol dependence, uncomplicated; Y90.9 Presence of alcohol in blood, level not specified; Z87.891 Personal history of nicotine dependence; Z79.4 Long term (current) use of insulin
CPT/HCPCS: 36415; 76700; 80048; 80053; 80061; 80076; 80320; 81003; 82270; 82272; 82607; 82728; 82803; 82947; 83036; 83540; 83550; 83605; 83690; 83735; 84443; 84681; 85014; 85018; 85025; 85027; 85060; 85610; 85730; 86140; 86341; 86803; 86850; 86900; 86901; 86922; 87077; 88305; 99156; 99223; 99233; 99285; A9270-GY; G0480; J1756; J2250; J3010; J3480; P9016

== ENCOUNTER 2019-02-23 22:25 | Emergency (ER) | payer MEDICAID, OTHER ==
--- OUTSIDE RECORDS SUMMARY | 2019-02-23 23:21 | XMS REPORT | Continuity of Care Document ---
:1965 External Reference #:[id number] Author Name Bakari Cifuentes MD (transmitted by agent of provider Marj Juárez) Address [address] [place] [address] Care Team Providers Name Role Phone Leon Herman MD - Hospitalist Care Team Information Manual Lathe Machinist [phone] Problems Active Problems Provider Date Type 2 diabetes mellitus Leon Herman MD Onset: 11/22/2018 Note: turned up during admission Thrombocytopenic disorder Leon Herman MD Onset: 11/22/2018 Iron deficiency anemia Leon Herman MD Onset: 11/22/2018 Note: recalls being told to take iron by Dr Waldron in 2008 or so - though not details Constipation Bakari Cifuentes MD Onset: 01/28/2001 Note: only with Fe treatment; Chronic alcoholism in remission Bakari Cifuentes MD Onset: 01/28/1999 Note: in January 2019 attending [facility] outpt and sober 8 wks; Social History Type Date Description Comments Sex Unknown Tobacco Use Start: Unknown End: Former Cigarette Smoker Unknown Smoking Status Reviewed: 01/28/19 Former Cigarette Smoker ETOH Use Has consumed alcohol in Has been alcohol the past free for 4 weeks - states binge drinking for past year. At worst a "handle" everyday - 1.75 liters (vodka)- sober since October 2018 Tobacco Use Start: Unknown End: Patient is a former Unknown smoker Recreational Drug Use Denies Drug Use Exercise Type/Frequency Exercises sporadically hiking, hunting, and fishing Allergies, Adverse Reactions, Alerts Description No Known Drug Allergies Medications Active Medications SIG Qnty Indications Ordering Date Provider Freestyle Lite Blood test blood sugar 1units Leon Herman MD 01/08/2019 Glucose Monitoring 3 times daily System and as needed Device for diabetes mellitus Freestyle Lite Test test blood sugar 100units Leon Herman MD 01/08/2019 3 times daily Strips and as needed for diabetes mellitus Glipizide XL 10mg once daily 30tabs Tomasz Edward MD 12/11/2018 10mg in the morning Tablets ER 24HR Deirdre Mora 01/28/19 reports 15ml Tomasz Edward MD 12/11/2018 now taking 5 100Unit/ML Solution units. Tapering Pen-Inject dose per 20 units Sq once daily at bedtime or as directed, MDD [address] [place] use once daily 50units Tomasz Edward MD 12/11/2018 31G X 5 mm with insulin Misc Blood Glucose Test use four times 100units Leon Herman MD 11/22/2018 daily to check Strips blood glucose for diabetes mellitus Metformin HCL ER 12/27/18 reports 60tabs Tomasz Edward MD 750mg taking 1 in am Tablets ER 24HR and 1 in pm per 2 tablets by mouth every day at bedtime Multivitamin Women 1 by mouth every Unknown day Tablets Folic Acid take one Unknown 1mg Tablets capsule/tablet daily by mouth History Medications Advocate Insulin Substitution 50units E11.65 Tomasz 12/11/2018 - Syringe/U-100/0.3ML/31GX5/16" Okay, use for MD Cheyanne 12/11/2018 31G X 5/16" 0.3 insulin ML Misc injection Lantus Hold On File, 10ml E11.65 Tomasz 12/11/2018 - 100Unit/ML Solution 20 units [facility] or MD Che[place]ne 12/11/2018 as directed, MDD 40 BD Pen Needle/Mini/Ultrafine/31G use four times 100units Leon 11/22/2018 - X 3/16" 31G daily with MD Virgil 12/11/2018 X 5 mm Misc levemir for diabetes mellitus Onetouch Delica Plus Lancing to use 4 X Leon 11/22/2018 - Device Misc daily to MD Virgil 01/27/2019 monitor BS Onetouch Delica Lancets Fine 30G use four times 100units Leon 11/22/2018 - 30G Misc daily to test MD Virgil 01/27/2019 blood glucose for diabetes mellitus Levemir 25U in Am and 20ml E11.9 Leon 11/22/2018 - 100Unit/ML Solution 15U in PM MD Virgil 12/10/2018 Immunizations Description No Information Available Vital Signs Date Vital Result Comment 01/28/2019 4:40pm Height 71 inches 5'11" Weight 199.00 lb Heart Rate 76 /min BP Systolic 141 mmHg BP Diastolic 89 mmHg O2 % BldC Oximetry 98 % BMI (Body Mass Index) 27.8 kg/m2 12/27/2018 8:41am Height 71 inches 5'11" Weight 192.00 lb Heart Rate 79 /min BP Systolic 132 mmHg BP Diastolic 90 mmHg Body Temperature 97.7 F O2 % BldC Oximetry 98 % BMI (Body Mass Index) 26.8 kg/m2 Results Test Date Facility Test Result H/L Range Note Iron & Iron Binding 01/07/2019 [facility] Iron 32 g/dL Low 50-[address] [place] [address] [phone] Unsaturated Iron Binding < 486 g/dL Total Iron Binding Capacity 501 g/dL High 250-450 Transferrin 358 mg/dL Normal 203-362 % Iron Saturation 6 % Low 15-55 Laboratory test 01/07/2019 [facility] Ferritin 15.2 Low 24- [address] ng/[place] [address] [phone] CBC Auto Diff 01/07/2019 [facility] White Blood 6.6 Normal 3.5 -10.[address] Count 10^3/[place] [address] [phone] Red Blood Count 5.39 10^6/uL Normal 4.18-5.48 Hemoglobin 12.8 g/dL Low 14.0-18.0 Hematocrit 39 % Low 42-52 Mean Corpuscular Volume 73 fL Low 80-94 1 Mean Corpuscular Hemoglobin 24 pg Low 27-31 Mean Corpuscular HGB Conc 33 g/dL Normal 31-36 Red Cell Distribution Width 32 % High 10-15 2 Abs Neutrophils 4.6 10^3/uL Normal 1.5-7.7 Platelet Count 113 10^3/uL Low 150-450 3 Mean Platelet Volume 9.0 fL Normal 7.4-10.4 Abs Lymphocytes 1.1 10^3/uL Normal 1.0-4.8 Abs Monocytes 0.6 10^3/uL Normal 0-0.8 Abs Eosinophils 0.2 10^3/uL Normal 0-0.6 Abs Basophils 0.1 10^3/uL Normal 0-0.2 Abs Nucleated RBC 0.0 10^3/uL Granulocyte % 69.6 % Lymphocyte % 17.4 % Monocyte % 9.2 % Eosinophil % 2.8 % Basophil % 1.0 % Nucleated Red Blood Cells % 0.0 Cell Morphology 01/07/2019 [facility] Microcytosis [address] [place] [address] [phone] Hypochromasia 1+ Anisocytosis 2+ Elliptocyte 1+ CBC Auto 11/29/2018 [facility] White Blood 5.9 10^3/uL Normal 3.5-10.[address] [place] [address] [phone] Red Blood Count 4.88 10^6/uL Normal 4.18-5.48 Hemoglobin 9.9 g/dL Low 14.0-18.0 Hematocrit 33 % Low 42-52 Mean Corpuscular Volume 67 fL Low 80-94 4 Mean Corpuscular Hemoglobin 20 pg Low 27-31 Mean Corpuscular HGB Conc 30 g/dL Low 31-36 Red Cell Distribution Width 35 % High 10-15 5 Platelet Count 278 10^3/uL Normal 150-450 Mean Platelet Volume 9.1 fL Normal 7.4-10.4 Abs Neutrophils 4.2 10^3/uL Normal 1.5-7.7 Abs Lymphocytes 1.0 10^3/uL Normal 1.0-4.8 Abs Monocytes 0.5 10^3/uL Normal 0-0.8 Abs Eosinophils 0.1 10^3/uL Normal 0-0.6 Abs Basophils 0.1 10^3/uL Normal 0-0.2 Abs Nucleated RBC 0.0 10^3/uL Granulocyte % 71.0 % Lymphocyte % 16.2 % Monocyte % 9.0 % Eosinophil % 2.2 % Basophil % 1.6 % Nucleated Red Blood Cells % 0.0 Comp Metabolic 11/29/2018 [facility] Sodium 140 mmol/L Normal 135-[address] [place] [address] [phone] Potassium 4.2 mmol/L Normal 3.5-5.0 Chloride 108 mmol/L Normal 101-111 Co2 Carbon Dioxide 24 mmol/L Normal 22-32 Anion Gap 8 mmol/L Normal 2-11 Glucose 80 mg/dL Normal 70-100 Blood Urea Nitrogen 15 mg/dL Normal 6-24 Creatinine 0.80 mg/dL Normal 0.67-1.17 BUN/Creatinine Ratio 18.8 Normal 8-20 Calcium 9.6 mg/dL Normal 8.6-10.3 Total Protein 7.1 g/dL Normal 6.4-8.9 Albumin 4.0 g/dL Normal 3.2-5.2 Globulin 3.1 g/dL Normal 2-4 Albumin/Globulin Ratio 1.3 Normal 1-3 Total Bilirubin 1.30 mg/dL High 0.2-1.0 Alkaline Phosphatase 121 U/L High 34-104 Alt 12 U/L Normal 7-52 Ast 24 U/L Normal 13-39 Egfr Non- 102.3 >60 Egfr 123.8 >60 6 Laboratory test 11/29/2018 [facility] Ferritin 37.8 ng/mL Normal 24-336 finding [address] [place] [address] [phone] Hemoglobin A1c (Glyco HGB) 7.4 % High 4.0-5.6 7 Cell Morphology 11/29/2018 [facility] Microcytosis 2+ [address] [place] [address] [phone] Hypochromasia 1+ Anisocytosis 3+ 1 Consistent with Previous Results Reported on 11/29/2018. 2 Consistent with Previous Results Reported on 11/29/2018. 3 Platelet count confirmed by estimate 4 Consistent with Previous Results Reported on 11/13/18. 5 Consistent with Previous Results Reported on 11/13/18. 6 Because ethnic data is not always readily available, this report includes an eGFR for both -Americans and non- Americans. The National Kidney Disease Education Program (NKDEP) does not endorse the use of the MDRD equation for patients that are not between the ages of 18 and 70, are , have extremes of body size, muscle mass, or nutritional status, or are non- or non-. According to the National Kidney Foundation, irrespective of diagnosis, the stage of the disease is based on the level of kidney function: Stage Description GFR(mL/min/1.73 m(2)) 1 Kidney damage with normal or decreased GFR 90 2 Kidney damage with mild decrease in GFR 60-89 3 Moderate decrease in GFR 30-59 4 Severe decrease in GFR 15-29 5 Kidney failure <15 (or dialysis) 7 Therapeutic target for the treatment of diabetes mellitus patients is <7% HBA1C, and in selective patients <6.0%. Please refer to [place] Diabetes Association diabetic care guidelines for further information. Procedures Description No Information Available Medical Devices Description No Information Available Encounters Type Date Location Provider Dx Diagnosis Office Visit 12/27/2018 [facility] Internal Leon Herman MD E11.65 Type 2 diabetes 8:40a Medicine - Suite mellitus with R hyperglycemia F10.11 Alcohol abuse, in remission M25.511 Pain in right shoulder Office Visit 12/11/2018 [place] Randal Edward, E11.65 Type 2 diabetes 8:40a Endocrinology of mellitus with Geotechnician hyperglycemia F10.11 Alcohol abuse, in remission Office Visit 11/29/2018 [facility] Gastroenterology Bakari T. D50.9 Iron deficiency 3:30p MD Esau anemia, unspecified D69.6 Thrombocytopenia, unspecified E11.9 Type 2 diabetes mellitus without complications K70.9 Alcoholic liver disease, unspecified Office Visit 11/22/2018 8:20a [facility] Internal Leon Herman E11.9 Type 2 diabetes Medicine - Suite mellitus without R complications D69.6 Thrombocytopenia, unspecified D50.9 Iron deficiency anemia, unspecified F10.188 Alcohol abuse with other alcohol-induced disorder Office Visit 11/16/2018 10:45a [place] Neville Jordan, E11.9 Type 2 diabetes Assoc,pc N.P. mellitus without Hospitalists complications D64.9 Anemia, unspecified D69.6 Thrombocytopenia, unspecified E87.1 Hypo-osmolality and hyponatremia Office Visit 11/15/2018 [place] Neville Jordan, D69.6 Thrombocytopenia, 10:45a Assoc,pc N.P. unspecified Hospitalists D50.9 Iron deficiency anemia, unspecified E11.9 Type 2 diabetes mellitus without complications Office Visit 11/15/2018 [place] Randal Edward, E11.10 Type 2 diabetes 8:11a Endocrinology of mellitus with Geotechnician ketoacidosis without coma F10.188 Alcohol abuse with other alcohol-induced disorder Office Visit 11/14/2018 10:44a [facility] Francine D50.9 Iron deficiency Assoc,lalito Gonzalez PA-C anemia, Hospitalists unspecified D69.6 Thrombocytopenia, unspecified E87.0 Hyperosmolality and hypernatremia E87.1 Hypo-osmolality and hyponatremia E11.9 Type 2 diabetes mellitus without complications Office Visit 11/12/2018 [facility] Lisa E87.0 Hyperosmolality and 10:43a Assoc,pc Rooth, DO hypernatremia Hospitalists E87.1 Hypo-osmolality and hyponatremia D50.9 Iron deficiency anemia, unspecified D69.6 Thrombocytopenia, unspecified Assessments Date Code Description Provider 12/27/2018 E11.65 Type 2 diabetes mellitus with hyperglycemia Leon Herman MD 12/27/2018 F10.11 Alcohol abuse, in remission Leon Herman MD 12/27/2018 M25.511 Pain in right shoulder Leon Herman MD 12/11/2018 E11.65 Type 2 diabetes mellitus with hyperglycemia Tomasz Edward MD 12/11/2018 F10.11 Alcohol abuse, in remission Tomasz Edward MD 11/29/2018 D50.9 Iron deficiency anemia, unspecified Bakari Cifuentes MD 11/29/2018 D69.6 Thrombocytopenia, unspecified Bakari Cifuentes MD 11/29/2018 E11.9 Type 2 diabetes mellitus without Bakari Cifuentes MD complications 11/29/2018 K70.9 Alcoholic liver disease, unspecified Bakari Cifuentes MD 11/22/2018 E11.9 Type 2 diabetes mellitus without Leon Herman MD complications 11/22/2018 D69.6 Thrombocytopenia, unspecified Leon Herman MD 11/22/2018 D50.9 Iron deficiency anemia, unspecified Leon Herman MD 11/22/2018 F10.188 Alcohol abuse with other alcohol-induced Leon Herman MD disorder 11/16/2018 E11.9 Type 2 diabetes mellitus without Carlie Jordan, N.P. complications 11/16/2018 D64.9 Anemia, unspecified Carlie Jordan, N.P. 11/16/2018 D69.6 Thrombocytopenia, unspecified Carlie Jordan, N.P. 11/16/2018 E87.1 Hypo-osmolality and hyponatremia Carlie Julian, N.P. 11/15/2018 E11.10 Type 2 diabetes mellitus with ketoacidosis Tomasz Edward MD without coma 11/15/2018 F10.188 Alcohol abuse with other alcohol-induced Tomasz Edward MD disorder 11/15/2018 D69.6 Thrombocytopenia, unspecified Carlie Julian, N.P. 11/15/2018 D50.9 Iron deficiency anemia, unspecified Carlie Julian, N.P. 11/15/2018 E11.9 Type 2 diabetes mellitus without Carlie Julian, N.P. complications 11/14/2018 D50.9 Iron deficiency anemia, unspecified Francine O'dhruv, PA-C 11/14/2018 D69.6 Thrombocytopenia, unspecified Francine O'dhruv, PA-C 11/14/2018 E87.0 Hyperosmolality and hypernatremia Francine O'dhruv, PA-C 11/14/2018 E87.1 Hypo-osmolality and hyponatremia Francine O'dhruv, PA-C 11/14/2018 E11.9 Type 2 diabetes mellitus without Francine O'dhruv, PA-C complications 11/13/2018 D50.9 Iron deficiency anemia, unspecified Francine O'dhruv, PA-C 11/13/2018 D69.6 Thrombocytopenia, unspecified Francine O'dhruv, PA-C 11/13/2018 E87.0 Hyperosmolality and hypernatremia Francine O'dhruv, PA-C 11/13/2018 E87.1 Hypo-osmolality and hyponatremia Francine O'dhruv, PA-C 11/13/2018 E11.9 Type 2 diabetes mellitus without Francine O'dhruv, PA-C complications 11/12/2018 E87.0 Hyperosmolality and hypernatremia Lisa Jose, DO 11/12/2018 E87.1 Hypo-osmolality and hyponatremia Lisa Jose, DO 11/12/2018 D50.9 Iron deficiency anemia, unspecified Lisa Jose, DO 11/12/2018 D69.6 Thrombocytopenia, unspecified Lisa Jose, DO Plan of Treatment Future Appointment(s):03/13/2019 4:20 pm - Tomasz Edward MD at [place] [facility] Functional Status Description No Information Available Mental Status Description No Information Available Referrals Refer to Reason for Referral Status Appt Date Tomasz Edward MD new diabetes (seen in the hospital) Sent [address] [place] [id number] [phone]
[2019-02-23] MEDS ORDERED: NS 0.9% 1000 ML** 1,000 ML IV ONE (23:26)
[2019-02-24] MEDS ORDERED: Lorazepam PYXIS KEY PRN (00:10)
[2019-02-24] MEDS ORDERED: Thiamine INJ* 100 MG, Folic Acid IV* 1 MG, Multiple Vitamin IV ADULT* 10 ML in NS 0.9% ... IV ONE (00:10)
[2019-02-24 00:31] LABS: Hematocrit 39 % (42-52); Hemoglobin 13.1 g/dL (14.0-18.0); Mean Corpuscular HGB Conc 34 g/dL (31-36); Mean Corpuscular Hemoglobin 28 pg (27-31); Mean Corpuscular Volume 82 fL (80-94); Red Blood Count 4.73 10^6 /uL (4.18-5.48); Red Cell Distribution Width 23 % (10-15); White Blood Count 8.3 10^3/uL (3.5-10.8)
[2019-02-24 00:33] LABS: INR 1.15 (0.82-1.09)
[2019-02-24 00:40] LABS: ALT 14 U/L (7-52); AST 30 U/L (13-39); Albumin/Globulin Ratio 1.4 (1-3); Alkaline Phosphatase 111 U/L (34-104); Anion Gap 9 mmol/L (2-11); BUN/Creatinine Ratio 15.5 (8-20); Blood Urea Nitrogen 13 mg/dL (6-24); CO2 Carbon Dioxide 24 mmol/L (22-32); Calcium 9.2 mg/dL (8.6-10.3); Chloride 104 mmol/L (101-111); EGFR African American 116.6 (>60); EGFR Non-African American 96.3 (>60); Globulin 2.8 g/dL (2-4); Glucose 142 mg/dL (70-100); Potassium 3.3 mmol/L (3.5-5.0); Sodium 137 mmol/L (135-145); Total Protein 6.8 g/dL (6.4-8.9)
[2019-02-24 00:41] LABS: Troponin I 0.01 ng/mL (<0.04)
--- NOTE | 2019-02-24 00:49 | ED ---
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 The pt was at a wedding when he had an episode of seizure. After the seizure his girlfriend gave him some fruit juice and took him to the ED. He notes that he had a relapse of alcoholism last week and that he has Hx of seizures associated with alcohol abuse. He states that he has not drunken EtOH for 5-6 days. 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 Pain severity is rated a 0/10. No aggravating or alleviating factors noted. He is a non-smoker and does not use any substances other than EtOH. Home Medications Medication Instructions Recorded Confirmed Type glipiZIDE TAB.XL* [Glucotrol Xl*] 10 mg PO DAILY #30 tab.xl 11/16/18 02/23/19 Rx Folic Acid TAB* [Folvite TAB*] 1 mg PO DAILY 01/30/19 02/23/19 History Insulin Glargine,Hum.rec.anlog 5 unit SUBCUT BEDTIME 01/30/19 02/23/19 History [Basaglar Kwikpen U-100] Metformin HCl [Metformin HCl ER] 750 mg PO BID 01/30/19 02/23/19 History Mv-Min/Iron/Folic/Calcium/Vitk 1 tab PO DAILY 01/30/19 02/23/19 History [Women's Daily Formula Tablet] Naltrexone TAB* 50 mg PO DAILY #30 tab 02/24/19 Rx chlordiazePOXIDE CAP* [Librium 25 mg PO BID #6 cap MDD 2 02/24/19 Rx CAP*] - History Of Current Complaint Chief Complaint: EDSeizure Time Seen by Provider: 02/23/19 23:26 Hx Obtained From: Patient, Family/Stage Builder - girlfriend Onset/Duration: Sudden Onset, Resolved Timing: Seconds Context: Witnessed - Seizure Aggravating Factor(s): Nothing Alleviating Factor(s): Nothing Associated Signs And Symptoms: Diarrhea, Diaphoresis, Seizure - Allergies/Home Medications Allergies/Adverse Reactions: Allergies Allergy/AdvReac Type Severity Reaction Status Date / Time No Known Allergies Allergy Verified 01/30/19 11:27 PMH/Surg Hx/FS Hx/Imm Hx Endocrine/Hematology History: Reports: Hx Diabetes - new diagnosis Denies: Hx Anticoagulant Therapy Cardiovascular History: Reports: Hx Hypertension Respiratory History: Reports: Other Respiratory Problems/Disorders - HOSPITALIZED FOR PLEURAL EFFUSION 11/2014. History: Reports: Hx Acute Renal Failure - this admission, no history Sensory History: Reports: Hx Contacts or Glasses Denies: Hx Deafness, Hx Hearing Aid Opthamlomology History: Reports: Hx Contacts or Glasses Neurological History: Reports: Hx Seizures - last seizure three weeks ago Psychiatric History: Reports: Hx Anxiety, Hx Depression, Hx Substance Abuse - Surgical History Surgery Procedure, Year, and Place: Right & left inguinal, umbilical hernia surgeries (all 15+ years ago) Hx Anesthesia Reactions: No - Immunization History Date of Tetanus Vaccine: utd Date of Influenza Vaccine: none Infectious Disease History: No Infectious Disease History: Denies: Traveled Outside the [place] in Last 30 Days - Family History Known Family History: Positive: Unknown - Patient adopted - Social History Alcohol Use: None Alcohol Amount: 1+ pints vodka/d Hx Substance Use: Yes - etoh Substance Use Type: Reports: None Substance Use Comment - Amount & Last Used: very rarely Hx Tobacco Use: No Smoking Status (MU): Never Smoked Tobacco Review of Systems Positive: Skin Diaphoresis Positive: Diarrhea, Nausea Neurological: Other - pos - seizure All Other Systems Reviewed And Are Negative: Yes Physical Exam - Summary Physical Exam Summary: General: Well-developed, Well-nourished male. Vague historian. No acute distress. HEENT: Normocephalic, Atraumatic. Eyes: Conjuctiva normal, PERRL. Ears: TMs within normal limits. Nares: (-) discharge, (-) erythema. Oropharynx: Clear, mucous membranes moist, (-) exudates. Neck: Soft, FROM, (-) lymphadenopathy, (-) thyromegaly, (-) JVD. Cardiovascular: Normal sinus rhythm, (-) murmur. Lungs: Clear to auscultation bilaterally (-) wheezes, (-) rales, (-) rhonchi. Abdomen: Soft, non-tender, non-distended, (-) organomegaly, normal bowel sounds. Back: (-) CVA tenderness Extremities: No edema. Skin: Warm, dry, (-) rash. Neuro: Alert and oriented x3, no focal deficits, GCS of 15 (see scale). Psychiatric: Mood normal, affect normal. Triage Information Reviewed: Yes Vital Signs On Initial Exam: Initial Vitals Temp Pulse Resp BP Pulse Ox 99.2 F 124 18 147/107 96 02/23/19 22:26 02/23/19 22:26 02/23/19 22:26 02/23/19 22:26 02/23/19 22:26 Vital Signs Reviewed: Yes - Liu Coma Scale Best Eye Response: 4 - Spontaneous Best Motor Response: 6 - Obeys Commands Best Verbal Response: 5 - Oriented Coma Scale Total: 15 Diagnostics - Vital Signs Vital Signs Temp Pulse Resp BP Pulse Ox 02/24/19 00:14 94 15 97 02/24/19 00:13 98 22 145/97 97 02/24/19 00:00 100 24 97 02/23/19 23:43 99 20 142/88 96 02/23/19 23:13 100 17 149/95 95 02/23/19 23:00 101 23 96 02/23/19 22:43 217 15 139/100 96 02/23/19 22:42 19 02/23/19 22:26 99.2 F 124 18 147/107 96 - Laboratory Lab Results: Lab Results 02/23/19 02/24/19 02/24/19 Range/Units 22:33 00:10 00:10 WBC 8.3 (3.5-10.8) 10^3/uL RBC 4.73 (4.18-5.48) 10^6 /uL Hgb 13.1 L (14.0-18.0) g/dL Hct 39 L (42-52) % MCV 82 (80-94) fL MCH 28 (27-31) pg MCHC 34 (31-36) g/dL RDW 23 H (10-15) % Plt Count Pending MPV Pending Neut % (Auto) Pending Lymph % (Auto) Pending Haywood % (Auto) Pending Eos % (Auto) Pending Baso % (Auto) Pending Absolute Neuts (auto) Pending Absolute Lymphs (auto) Pending Absolute Monos (auto) Pending Absolute Eos (auto) Pending Absolute Basos (auto) Pending Absolute Nucleated RBC Pending Nucleated RBC % Pending INR (Anticoag Therapy) 1.15 H (0.82-1.09) Sodium (135-145) mmol/L Potassium (3.5-5.0) mmol/L Chloride (101-111) mmol/L Carbon Dioxide (22-32) mmol/L Anion Gap (2-11) mmol/L BUN (6-24) mg/dL Creatinine (0.67-1.17) mg/dL Est GFR ( Amer) (>60) Est GFR (Non-Af Amer) (>60) BUN/Creatinine Ratio (8-20) Glucose (70-100) mg/dL POC Glucose (mg/dL) 93 (70-100) mg/dL Lactic Acid (0.5-2.0) mmol/L Calcium (8.6-10.3) mg/dL Magnesium (1.9-2.7) mg/dL Total Bilirubin (0.2-1.0) mg/dL AST (13-39) U/L ALT (7-52) U/L Alkaline Phosphatase (34-104) U/L Troponin I (<0.04) ng/mL Total Protein (6.4-8.9) g/dL Albumin (3.2-5.2) g/dL Globulin (2-4) g/dL Albumin/Globulin Ratio (1-3) Serum Alcohol 02/24/19 02/24/19 Range/Units 00:10 00:10 WBC (3.5-10.8) 10^3/uL RBC (4.18-5.48) 10^6 /uL Hgb (14.0-18.0) g/dL Hct (42-52) % MCV (80-94) fL MCH (27-31) pg MCHC (31-36) g/dL RDW (10-15) % Plt Count MPV Neut % (Auto) Lymph % (Auto) Haywood % (Auto) Eos % (Auto) Baso % (Auto) Absolute Neuts (auto) Absolute Lymphs (auto) Absolute Monos (auto) Absolute Eos (auto) Absolute Basos (auto) Absolute Nucleated RBC Nucleated RBC % INR (Anticoag Therapy) (0.82-1.09) Sodium 137 (135-145) mmol/L Potassium 3.3 L (3.5-5.0) mmol/L Chloride 104 (101-111) mmol/L Carbon Dioxide 24 (22-32) mmol/L Anion Gap 9 (2-11) mmol/L BUN 13 (6-24) mg/dL Creatinine 0.84 (0.67-1.17) mg/dL Est GFR ( Amer) 116.6 (>60) Est GFR (Non-Af Amer) 96.3 (>60) BUN/Creatinine Ratio 15.5 (8-20) Glucose 142 H (70-100) mg/dL POC Glucose (mg/dL) (70-100) mg/dL Lactic Acid 1.3 (0.5-2.0) mmol/L Calcium 9.2 (8.6-10.3) mg/dL Magnesium 2.0 (1.9-2.7) mg/dL Total Bilirubin 1.70 H (0.2-1.0) mg/dL AST 30 (13-39) U/L ALT 14 (7-52) U/L Alkaline Phosphatase 111 H (34-104) U/L Troponin I 0.01 (<0.04) ng/mL Total Protein 6.8 (6.4-8.9) g/dL Albumin 4.0 (3.2-5.2) g/dL Globulin 2.8 (2-4) g/dL Albumin/Globulin Ratio 1.4 (1-3) Serum Alcohol Pending Result Diagrams: 02/24/19 00:10 02/24/19 00:10 Lab Statement: Any lab studies that have been ordered have been reviewed, and results considered in the medical decision making process. - CT Brain CT CT Interpretation Completed By: Radiologist Summary of CT Findings: Impression: No acute intracranial abnormality. ED physician has reviewed this report. - EKG 2336 Cardiac Rate: NL - 99 bpm EKG Rhythm: Sinus Rhythm Summary of EKG Findings: EKG at 2336 reveals normal sinus rhythm with rate of 99 BPM, no acute changes, no ischemic changes. This EKG was reviewed and interpreted by Dr. Feliz. 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 Test results normal except for Hgb 13.1, Hct 39 , RDW 23, Plt Count 80, Absolute Lymphs 0.8, INR 1.15, potassium 3.3, Glucose 142, Total Bilirubin 1.70, Alkaline Phosphatase 111, 1+ urine protein, 1+ urine blood, Ur urobilinogen positive, 2+ ur RBC, Hyaline Casts Present. In the ED course pt was given 1011.2 mls thiamine and [address] reveals no acute intracranial abnormality. An EKG at 2336 reveals normal sinus rhythm with rate of 99 BPM, no acute changes, no ischemic changes. This EKG was reviewed and interpreted by Dr. Feliz. Final Dx is seizure. Pt will be discharged home with PCP follow up. Pt is agreeable with this plan. - Diagnoses Provider Diagnoses: Seizure Discharge ED - Sign-Out/Discharge Documenting (check all that apply): Patient Departure - discharge Patient Received Moderate/Deep Sedation with Procedure: No - Discharge Plan Condition: Stable Disposition: HOME Prescriptions: chlordiazePOXIDE CAP* [Librium CAP*] 25 mg PO BID #6 cap MDD 2 Naltrexone TAB* 50 mg PO DAILY #30 tab Patient Education Materials: Chlordiazepoxide (By mouth), Naltrexone (By mouth) , Nonepileptic Seizures (DC), Alcohol Withdrawal (DC) Referrals: Leon Herman MD [Primary Care Provider] - 3 Days Additional Instructions: Please follow up with your primary care physician within three days. Please return to ED for any new or worsening symptoms. - Billing Disposition and Condition Condition: STABLE Disposition: Home - Attestation Statements Document Initiated by Brown: Yes Documenting Scribe: Med Meza Provider For Whom Brown is Documenting (Include Credential): Mohini Feliz MD Scribe Attestation: Med Jacques, scribed for Mohini Feliz MD on 02/24/19 at 0610. Scribe Documentation Reviewed: Yes Provider Attestation: The documentation as recorded by the Med enciso accurately reflects the service I personally performed and the decisions made by me, Mohini Feliz MD Status of Scribe Document: Viewed
[2019-02-24 00:55] LABS: Alcohol < 10 mg/dL (<10)
[2019-02-24 01:07] LABS: ABS Eosinophils 0.2 10^3/ul (0-0.6); ABS Lymphocytes 0.8 10^3/ul (1.0-4.8); ABS Monocytes 0.5 10^3/ul (0-0.8); ABS Neutrophils 6.8 10^3/ul (1.5-7.7); Eosinophil % 1.8 %; Lymphocyte % 9.8 %; Mean Platelet Volume 8.6 fL (7.4-10.4); Platelet Count 80 10^3/uL (150-450)
[2019-02-24 02:03] LABS: Urine Appearance Clear; Urine Bacteria Absent (Absent); Urine Bilirubin Negative (Negative); Urine Blood 1+ (Negative); Urine Color Yellow; Urine Glucose Negative (Negative); Urine Ketones Negative (Negative); Urine Nitrite Negative (Negative); Urine Protein 1+(30 mg/dL) (Negative); Urine Red Blood Cell 2+(6-10/hpf) (Absent); Urine Specific Gravity 1.014 (1.010-1.030); Urine Urobilinogen Positive (Negative); Urine White Blood Cell Absent (Absent)
[2019-02-24 02:05] LABS: Urine Benzodiazepine Screen None Detected (None Detect); Urine Opiates Screen None Detected (None Detect)
[2019-02-24 06:06] VITALS: BP 128/93
--- NOTE | 2019-02-24 10:28 | CONS ---
CONSULTATION REPORT: DATE OF CONSULT: 02/24/19 - EMERGENCY DEPT CONSULTING PROVIDER: Leon Herman M.D. REFERRING PROVIDER: Dr. Feliz in the emergency room. REASON FOR CONSULT: Management of alcohol withdrawal seizures. CHIEF COMPLAINT: Seizure in the setting of alcohol withdrawal. HISTORY OF PRESENT ILLNESS: Abdullahi Ladd is a 53-year-old male with a past medical history of alcoholism, insulin-dependent diabetes mellitus, GI bleed, hemorrhoids, alcohol withdrawal seizures and diverticulitis. He had successfully been sober from alcohol for approximately 3 months from November to February, but had started to drink a few times prior to a recent trip back home to [place] where his mother was ill and hospitalized. Over 3 days, , Monday, and Monday, 02/14/19 through 02/16/19, he had approximately a couple fifths of vodka total over those 3 days and then returned on 02/20/19, where he started to display signs of alcohol withdrawal. He was attending a wedding on the day prior to consult, 02/23/19 when he had a witnessed (by physician bystander Dr. Tan Chavez) 2-minute long seizure and was postictal. He was transported to [facility] Emergency Room for further evaluation. A workup included a negative CT head, negative alcohol level, platelets of 80, INR 1.15, glucose 142 up from [id number] glucose 93, and total bili of 1.7 and he was referred to hospitalist service for further evaluation. He had been actually able to ambulate into the emergency room and again on this provider's evaluation. He had been sleeping poorly during the alcohol withdrawals and only the night prior to the wedding, did he sleep a little bit better. PAST MEDICAL HISTORY: Insulin-dependent diabetes mellitus (relatively new onset ), but with reducing insulin requirements, alcoholism, alcohol withdrawal seizures, diverticulitis, thrombocytopenia, GI bleed, and hemorrhoids. MEDICATIONS: Included: 1. Glipizide XL 2 mg daily. 2. Metformin 750 mg p.o. b.i.d. 3. Basaglar 5 units at bedtime. 4. Folic acid 1 mg daily. 5. Multivitamin. ALLERGIES: No known drug allergies. FAMILY HISTORY: Unknown, as he is adopted. SOCIAL HISTORY: He is a smalls. Former smoking. He prior had been a pack per day smoker in his 20s. Had been drinking up to 1.75 L of vodka every other day over approximately a 5-year period leading up to the summer, but had been sober for last 3 months prior to this last relapse REVIEW OF SYSTEMS: A complete 14-point review of systems negative, except as per HPI. PHYSICAL EXAM: Vital Signs: Temperature 99.2, initial heart rate 112, currently 178 after 1L normal saline, blood pressure 147/88, oxygen saturation 96% on room air, respiratory rate 20. HEENT: Normocephalic, atraumatic. Pupils are equal, round, and reactive to light. Extraocular motions intact. No scleral icterus. Lungs: Clear to auscultation bilaterally with no wheezing, rales or rhonchi. Cardiovascular: Regular rate and rhythm. No murmurs, rubs or gallops. Abdomen: Soft, nontender, nondistended. Extremities: Warm, well- perfused. No peripheral edema. Cranial nerves II through XII are intact. 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 Gait steady. DIAGNOSTIC STUDIES/LAB DATA: Labs: White count 8.3, hemoglobin 13.1, hematocrit 39, platelets 80, INR of 1.15. Sodium 137, potassium 3.3, chloride 104, BUN 13, creatinine 0.84, glucose 142, lactic acid 1.3, total bili of 1.7, alk phos 111, AST 30, ALT 14. Urinalysis 1+ protein, 1+ blood, positive urobilinogen, 2+ rbc, toxicology screen is negative. Serum alcohol negative. Imaging: Brain CT with noncontrast, no acute intracranial abnormality. ASSESSMENT AND PLAN: Abdullahi Ladd is a 53-year-old male with past medical history of alcohol dependence and recent insulin-dependent diabetes mellitus with reducing insulin requirements, presenting with suspected alcohol withdrawal seizure. He is not a confident historian in terms of last EtOH use but he thinks it was 7 days prior - after which he has experienced at least 4 days of alcohol withdrawal symptoms. He is completely oriented and steady on his feet and is not complaining of any withdrawals at the moment. Has not gotten any Ativan here. I think he is safe to go home with some Librium taper with 25 mg twice a day for 2 days and then 25 mg once a day for 1 day, also starting him on naltrexone 50 mg daily and request followup with [facility] ([facility] would also be a good secondary resource as well). He can follow up with Dr. Herman within the next 2 weeks and he was strictly advised to avoid alcohol during the using of Librium. He has shown excellent control of diabetes mellitus with reduction of total insulin dose from 30 to 5 units each day and likely can be discontinued that when he sees Dr. Urbina on 03/13/19. He is also following up with Dr. Noyola to get a colonoscopy on 03/01/19. Thank you for this interesting consult. [id number]/[facility] #: [id number] LUBA
== END 2019-02-24 04:59 | disposition home or self-care (01) ==
LOC: ED 22:25
DX: R56.9 Unspecified convulsions (principal); F10.239 Alcohol dependence with withdrawal, unspecified; E11.9 Type 2 diabetes mellitus without complications; I10 Essential (primary) hypertension; F41.9 Anxiety disorder, unspecified; F32.9 Major depressive disorder, single episode, unspecified; Z79.4 Long term (current) use of insulin; Z79.899 Other long term (current) drug therapy
CPT/HCPCS: 36415; 70450; 80053; 80307; 80320; 81003; 81015; 83605; 83735; 84484; 85025; 85060; 85610; 87040; 93005; 96361; 96365; 96366; 99283; G0480; J3411

== ENCOUNTER 2019-05-24 07:35 | Inpatient (IN) | payer OTHER ==
--- OUTSIDE RECORDS SUMMARY | 2019-05-24 07:56 | XMS REPORT | Continuity of Care Document ---
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 [phone] Problems Active Problems Provider Date Type 2 diabetes mellitus Leon Herman MD Onset: 11/22/2018 Note: turned up during admission November 2018 Thrombocytopenic disorder Leon Herman MD Onset: 11/22/2018 Iron deficiency anemia Leon Herman MD Onset: 11/22/2018 Note: recalls being told to take iron by Dr Waldron in 2008 or so - though not details; baseline best Hg 15.4 MCV 94 Feb 2015 Constipation Bakari Cifuentes MD Onset: 01/28/2001 Note: only with Fe treatment courses - constipated 2018 Chronic alcoholism in remission Bakari Cifuentes MD Onset: 01/28/1999 Note: in January 2019 attending [facility] outpt and sober 8 wks; Social History Type Date Description Comments Sex Unknown Tobacco Use Start: Unknown End: Former Cigarette Smoker Unknown Smoking Status Reviewed: 05/14/19 Former Cigarette Smoker ETOH Use Has consumed [...] Medications SIG Qnty Indications Ordering Date Provider Doxycycline Take 2 pills within 4caps Leon Herman MD 04/04/2019 Monohydrate 72 hours of removal 100mg of a tick bite Capsules attached for more than 36 hours. Then stop. Suprep Bowel Prep take according to 354ml Tricia Blair, 01/30/2019 Kit the instructions MILITARY ANALYST you received, the 17.5-3.13-1.6GM/177 afternoon before ML Solution and morning of your procedure. Freestyle Lite test blood sugar 3 1units Leon Herman MD 01/08/2019 Blood Glucose times daily and as Monitoring System needed for diabetes mellitus Device Freestyle Lite Test test blood sugar 3 100units Leon Herman MD 01/08/2019 times daily and as Strips needed for diabetes mellitus Blood Glucose Test use four times 100units Leon Herman MD 11/22/2018 daily to check Strips blood glucose for diabetes mellitus Metformin HCL ER 2 tablets by mouth 60tabs Norah Galeana, twice per day DO 750mg Tablets ER 24HR Multivitamin Women 1 by mouth every Unknown day Tablets Folic Acid take one Unknown 1mg capsule/tablet Tablets daily by mouth Milk Thistle one tablet per day Unknown 140mg Capsules Sertraline HCL one tablet per day Unknown 20mg/ml Concentrate History Medications Doxycycline Hyclate Take 1 pill if find 3tabs Leon Herman MD 03/22/2019 - tick bite of greater 04/04/[address] than 36 hour duration. Magnesium Citrate drink the entire 296ml Bakari Solis. 01/30/2019 - bottle after dinner MD Esau 03/11/2019 1.745GM/30ML two days before your Solution procedure. Advocate Insulin Substitution Okay, 50units E11.65 Tomasz Edward, 2018 - Syringe/U-100/0.3ML use for insulin 12/11/2018 /31GX5/16" injection 31G X 5/16" 0.3 ML Misc Lantus Hold On File, 20 10ml E11.65 Tomasz Edward, 12/11/2018 - 100Unit/ML units QHS or as 12/11/2018 Solution directed, MDD 40 Glipizide XL 10mg once daily in 30tabs Tomasz Edward, 12/11/2018 - 10mg the morning 03/13/2019 Tablets ER 24HR Deirdre Mora taking 5 units as of 15ml Tomasz Edward, 12/11/2018 - 12/31/18 03/13/2019 100Unit/ML Solution Pen-Inject Pen Morgan use once daily with 50units Tomasz Edward, 12/11/2018 - 31G X 5 insulin 03/13/2019 mm Misc BD Pen use four times daily 100units Leon Herman MD 11/22/2018 - Needle/Mini/Ultrafi with levemir for 12/11/2018 ne/31G X 3/16" diabetes mellitus 31G X 5 mm Misc Onetouch Delica to use 4 X daily to Leon Herman MD 11/22/2018 - Plus Lancing Device monitor BS 01/27/2019 Misc Onetouch Delica use four times daily 100units Leon Herman MD 11/22/2018 - Lancets Fine 30G to test blood 01/27/2019 glucose for diabetes 30G Misc mellitus Levemir 25U in Am and 15U in 20ml E11.9 Leon Herman MD 11/22/2018 - 100Unit/ML PM 12/10/2018 Solution Immunizations Description No Information Available Vital Signs Date Vital Result Comment 05/14/2019 3:02pm Height 71 inches 5'11" Weight 197.00 lb Heart Rate 82 /min BP Systolic 127 mmHg BP Diastolic 79 mmHg O2 % BldC Oximetry 97 % BMI (Body Mass Index) 27.5 kg/m2 03/13/2019 4:13pm Height 71 inches 5'11" Weight 196.00 lb w/ shoes Heart Rate 79 /min BP Systolic Sitting 140 mmHg BP Diastolic Sitting 94 mmHg BMI (Body Mass Index) 27.3 kg/m2 Results Test Acquired Date Facility Test Result H/L Range Note Laboratory test 03/13/2019 [facility] Hemoglobin A1c 5.5 % Normal 4.0-5.[address] (Glyco HGB) [place] [address] [phone] Basic Metabolic 03/13/2019 [facility] Sodium 140 mmol/L Normal 135-[address] [place] [address] [phone] Potassium 4.0 mmol/L Normal 3.5-5.0 Chloride 104 mmol/L Normal 101-111 Co2 Carbon Dioxide 28 mmol/L Normal 22-32 Anion Gap 8 mmol/L Normal 2-11 Glucose 90 mg/dL Normal 70-100 Blood Urea Nitrogen 11 mg/dL Normal 6-24 Creatinine 0.82 mg/dL Normal 0.67-1.17 BUN/Creatinine Ratio 13.4 Normal 8-20 Calcium 9.9 mg/dL Normal 8.6-10.3 Egfr Non- 99.1 >60 Egfr 119.9 >60 2 Laboratory 03/08/2019 [facility] Point of Care 125 mg/dL High 70-100 3 test finding [address] [place] [address] [phone] Laboratory 02/24/2019 [facility] Pathologist (SEE 4 test finding [address] Review NOTE) [place] [address] [phone] CBC Auto Diff 02/24/2019 [facility] White Blood 8.3 Normal 3.5 -10.[address] Count 10^3/[place] [address] [phone] Red Blood Count 4.73 10^6/uL Normal 4.18-5.48 Hemoglobin 13.1 g/dL Low 14.0-18.0 Hematocrit 39 % Low 42-52 Mean Corpuscular Volume 82 fL Normal 80-94 Mean Corpuscular Hemoglobin 28 pg Normal 27-31 Mean Corpuscular HGB Conc 34 g/dL Normal 31-36 Red Cell Distribution Width 23 % High 10-15 5 Platelet Count 80 10^3/uL Low 150-450 Mean Platelet Volume 8.6 fL Normal 7.4-10.4 Abs Neutrophils 6.8 10^3/uL Normal 1.5-7.7 Abs Lymphocytes 0.8 10^3/uL Low 1.0-4.8 Abs Monocytes 0.5 10^3/uL Normal 0-0.8 Abs Eosinophils 0.2 10^3/uL Normal 0-0.6 Abs Basophils 0.0 10^3/uL Normal 0-0.2 Abs Nucleated RBC 0.0 10^3/uL Granulocyte % 81.7 % Lymphocyte % 9.8 % Monocyte % 6.4 % Eosinophil % 1.8 % Basophil % 0.3 % Nucleated Red Blood Cells % 0.0 Laboratory test 02/24/2019 [facility] Blood Culture SEE RESULT [address] [place] [address] [phone] Urine Drug SCR 02/24/2019 [facility] Urine None None ED & Pain [address] Amphetamine [place] [address] Screen [phone] Urine Barbiturates Screen None Detected None Detect Urine Benzodiazepine Screen None Detected None Detect Urine Cannabinoids Screen None Detected None Detect Urine Cocaine Screen None Detected None Detect Urine Opiates Screen None Detected None Detect Urine Phencyclidine Screen None Detected None Detect 7 Urinalysis Profile 02/24/2019 [facility] Urine Color Yellow [address] [place] [address] [phone] Urine Appearance Clear Urine Specific [place] 1.014 Normal 1.010-1.030 Urine pH 6.0 Normal 5-9 Urine Urobilinogen Positive Abnormal Negative Urine Ketones Negative Negative Urine Protein 1+(30 mg/dL) Abnormal Negative Urine Leukocytes Negative Negative Urine Blood 1+ Abnormal Negative Urine Nitrite Negative Negative Urine Bilirubin Negative Negative Urine Glucose Negative Negative Urine White Blood Cell Absent Absent Urine Red Blood Cell 2+(6-10/hpf) Abnormal Absent Urine Bacteria Absent Absent Urine Hyaline Casts Present Abnormal Absent Laboratory test 02/24/2019 [facility] Magnesium 2.0 mg/dL Normal 1.9-2.[address] [place] [address] [phone] Troponin-I (TnI) 0.01 ng/mL <0.04 8 Alcohol < 10 mg/dL Normal <10 Comp Metabolic 02/24/2019 [facility] Sodium 137 mmol/L Normal 135-[address] [place] [address] [phone] Potassium 3.3 mmol/L Low 3.5-5.0 Chloride 104 mmol/L Normal 101-111 Co2 Carbon Dioxide 24 mmol/L Normal 22-32 Anion Gap 9 mmol/L Normal 2-11 Glucose 142 mg/dL High 70-100 Blood Urea Nitrogen 13 mg/dL Normal 6-24 Creatinine 0.84 mg/dL Normal 0.67-1.17 BUN/Creatinine Ratio 15.5 Normal 8-20 Calcium 9.2 mg/dL Normal 8.6-10.3 Total Protein 6.8 g/dL Normal 6.4-8.9 Albumin 4.0 g/dL Normal 3.2-5.2 Globulin 2.8 g/dL Normal 2-4 Albumin/Globulin Ratio 1.4 Normal 1-3 Total Bilirubin 1.70 mg/dL High 0.2-1.0 Alkaline Phosphatase 111 U/L High 34-104 Alt 14 U/L Normal 7-52 Ast 30 U/L Normal 13-39 Egfr Non- 96.3 >60 Egfr 116.6 >60 9 Laboratory test 02/24/2019 [facility] Lactic Acid 1.3 mmol/L Normal 0.5-2.0 [address] [place], [place] [id number] [phone] Inr/Protime 02/24/2019 [facility] Inr 1.15 High 0.82-1.[address] [place] [address] [phone] Laboratory test 02/23/2019 [facility] Point of 93 mg/dL Normal 70-[address] [place] [address] Glucose [phone] Iron & Iron 01/07/2019 [facility] Iron 32 g/dL Low 50-[address] Capacity [place], [place] [id number] [phone] Unsaturated Iron Binding < 486 g/dL Total Iron Binding Capacity 501 g/dL High 250-450 Transferrin 358 mg/dL Normal 203-362 % Iron Saturation 6 % Low 15-55 Laboratory test 01/07/2019 [facility] Ferritin 15.2 Low 24- [address] ng/mL [place], [place] [address] [phone] CBC Auto Diff 01/07/2019 [facility] White Blood 6.6 Normal 3.5 -10.[address] Count 10^3/uL [place], [place] [address] [phone] Red Blood Count 5.39 10^6/uL Normal 4.18-5.48 Hemoglobin 12.8 g/dL Low 14.0-18.0 Hematocrit 39 % Low 42-52 Mean Corpuscular Volume 73 fL Low 80-94 13 Mean Corpuscular Hemoglobin 24 pg Low 27-31 Mean Corpuscular HGB Conc 33 g/dL Normal 31-36 Red Cell Distribution Width 32 % High 10-15 14 Abs Neutrophils 4.6 10^3/uL Normal 1.5-7.7 Platelet Count 113 10^3/uL Low 150-450 15 Mean Platelet Volume 9.0 fL Normal 7.4-10.4 [...] Blood Cells % 0.0 Cell Morphology 01/07/2019 [facility] Microcytosis 1+ [address] [place] [address] [phone] Hypochromasia 1+ Anisocytosis 2+ Elliptocyte 1+ CBC Auto 11/29/2018 [facility] White Blood 5.9 10^3/uL Normal 3.5-10.[address] [place] [address] [phone] Red Blood Count 4.88 10^6/uL Normal 4.18-5.48 Hemoglobin 9.9 g/dL Low 14.0-18.0 Hematocrit 33 % Low 42-52 Mean Corpuscular Volume 67 fL Low 80-94 16 Mean Corpuscular Hemoglobin 20 pg Low 27-31 Mean Corpuscular HGB Conc 30 g/dL Low 31-36 Red Cell Distribution Width 35 % High 10-15 17 Platelet Count 278 10^3/uL Normal 150-450 Mean [...] Blood Cells % 0.0 Comp Metabolic 11/29/2018 [facility] Sodium 140 mmol/L Normal 135-145 Panel [address] [place] [address] [phone] Potassium 4.2 mmol/L Normal 3.5-5.0 Chloride 108 [...] Egfr Non- 102.3 >60 Egfr 123.8 >60 18 Laboratory test 11/29/2018 [facility] Ferritin 37.8 ng/mL Normal 24-336 finding [address] [place] [address] [phone] Hemoglobin A1c (Glyco HGB) 7.4 % High 4.0-5.6 19 Cell Morphology 11/29/2018 [facility] Microcytosis 2+ [address] [place] [address] [phone] Hypochromasia 1+ Anisocytosis 3+ 1 Therapeutic target for the treatment of diabetes mellitus patients is <7% HBA1C, and in selective patients <6.0%. Please refer to [place] [employer] diabetic care guidelines for further information. 2 Because ethnic data is not always readily [...] 15-29 5 Kidney failure <15 (or dialysis) 3 Coil Rewind Machine Operator: [id number] 4 Normocytic anemia with thrombocytopenia noted. No blasts or evidence of hemolysis identified. Additional studies as clinically warranted. Reviewed by Dr. Oshea 5 Consistent with Previous Results Reported on 01.07.19 6 SEE RESULT BELOW Name: ABDULLAHI VANESSA : [address]: Mohini Feliz MD Acct: [id number] Unit: [id number] AGE: 53 Location: ED Re02/23/19 SEX: M Status: REG ER SPEC: [id number] ROSAS: 02/24/[address] [facility] [address]: Mohini Feliz MD REQ: [id number] RECD: 02/24/19 STATUS: AB [facility] DR: Leon Herman MD _ SOURCE: BLOOD,VENO SPDESC: ORDERED: Blood Cult Procedure Result Reported Site Aerobic Culture Bottle Final 03/01/19- 0018 ML No Growth Day 5 Anaerobic Culture Bottle Final 03/01/19- 0018 ML No Growth Day 5 * ML - Main Lab . END OF REPORT DEPARTMENT OF PATHOLOGY, [address] [place] [address] Liam Oshea M.D. Director [facility] # [id number] 7 The urine specimen was tested at the listed cutoffs: Drug class test level (ng/mL) Amphetamines 500 Barbiturates 200 Benzodiazepine metabolites 200 Cocaine metabolites 150 Cannabinoids 50 Opiates 300 Pcp 25 Specimen was received without chain of custody. Results should be used for medical purposes only. 8 Troponin-I testing on Plasma Separator Tubes (PST) has a known false positive rate of 0.20-0.40%. All positive troponins reflex immediately to secondary confirmatory testing. Using the [employer] DxI 800 Access Immunoassay systems, the 99th percentile upper reference limit was demonstrated to be < 0.03 ng/mL. 9 Because ethnic data is not always readily [...] 15-29 5 Kidney failure <15 (or dialysis) 10 [facility] Severe Sepsis and Septic Shock Management Bundle Measure requires all lactic acids initially measuring >2.0 mmol/L be repeated. 11 Standard intensity warfarin therapeutic range: 2.0-3.0 High intensity warfarin therapeutic range: 2.5-3.5 12 Coil Rewind Machine Operator: [id number] 13 Consistent with Previous Results Reported on 11/29/2018. 14 Consistent with Previous Results Reported on 11/29/2018. 15 Platelet count confirmed by estimate 16 Consistent with Previous Results Reported on 11/13/18. 17 Consistent with Previous Results Reported on 11/13/18. 18 Because ethnic data is not always readily [...] 15-29 5 Kidney failure <15 (or dialysis) 19 Therapeutic target for the treatment of diabetes mellitus patients is <7% HBA1C, and in selective patients <6.0%. Please refer to [place] [employer] diabetic care guidelines for further information. 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 Office Visit 01/28/2019 [facility] Gastroenterology Bakari Hernandez D50.9 Iron deficiency 4:15p MD Esau anemia, unspecified K59.00 Constipation, unspecified Office Visit 12/27/2018 8:40a [facility] Internal Leon Herman, E11.65 Type 2 diabetes Medicine - MD mellitus with [address] hyperglycemia F10.11 Alcohol abuse, in remission M25.511 Pain in right shoulder Office Visit 12/11/2018 [facility], E11.65 Type 2 diabetes 8:40a Endocrinology of MD mellitus with Resistor [employer] hyperglycemia F10.11 Alcohol abuse, in remission Office Visit 11/29/2018 [facility] Gastroenterology Bakari Hernandez D50.9 Iron deficiency 3:30p MD Esau anemia, unspecified D69.6 Thrombocytopenia, unspecified E11.9 Type 2 diabetes mellitus without complications K70.9 Alcoholic liver disease, unspecified Office Visit 11/22/2018 8:20a [facility] Internal Leon Herman, E11.9 Type 2 diabetes Medicine - Suite MD mellitus without R complications D69.6 Thrombocytopenia, unspecified D50.9 Iron deficiency anemia, unspecified F10.188 Alcohol abuse with other alcohol-induced disorder Office Visit 11/16/2018 10:45a [facility] Carlie Jordan, E11.9 Type 2 diabetes Assoc,pc N.P. mellitus without Hospitalists complications D64.9 Anemia, unspecified D69.6 Thrombocytopenia, unspecified E87.1 Hypo-osmolality and hyponatremia Office Visit 11/15/2018 [facility] Carlie Jordan, D69.6 Thrombocytopenia, 10:45a Assoc,pc N.P. unspecified Hospitalists D50.9 Iron deficiency anemia, unspecified E11.9 Type 2 diabetes mellitus without complications Office Visit 11/15/2018 [facility], E11.10 Type 2 diabetes 8:11a Endocrinology of mellitus with [facility] ketoacidosis without coma F10.188 Alcohol abuse with other alcohol-induced disorder Office Visit 11/14/2018 10:44a [facility] Francine D50.9 Iron deficiency Assoc,pc JOSSIE Gonzalez anemia, Hospitalists unspecified D69.6 Thrombocytopenia, unspecified E87.0 Hyperosmolality and hypernatremia E87.1 Hypo-osmolality and hyponatremia E11.9 Type 2 diabetes mellitus without complications Assessments Date Code Description Provider 05/14/2019 F10.11 Alcohol abuse, in remission Lupe Cabrales MD 05/14/2019 E11.9 Type 2 diabetes mellitus without Lupe Cabrales MD complications 05/14/2019 G40.909 Epilepsy, unspecified, not intractable, Lupe Cabrales MD without status epilepticus 05/14/2019 F41.9 Anxiety disorder, unspecified Lupe Cabrales MD 03/13/2019 E11.65 Type 2 diabetes mellitus with hyperglycemia Tomasz Edward MD 03/13/2019 F10.11 Alcohol abuse, in remission Tomasz Edward MD 03/13/2019 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 complications 11/16/2018 D64.9 Anemia, unspecified Carlie Julian, N.P. 11/16/2018 D69.6 Thrombocytopenia, unspecified Carlie Julian, N.P. 11/16/2018 E87.1 Hypo-osmolality and hyponatremia Carlie [...] PA-C 11/14/2018 E87.0 Hyperosmolality and hypernatremia Francine Phillips'dhruv, PA-C 11/14/2018 E87.1 Hypo-osmolality and hyponatremia Francine Gonzalez PA-C 11/14/2018 E11.9 Type 2 diabetes mellitus without Francine O'dhruv, PA-C complications 11/13/2018 D50.9 Iron deficiency anemia, unspecified Francine O'dhruv, PA-C 11/13/2018 D69.6 Thrombocytopenia, unspecified Francine O'dhruv, PA-C 11/13/2018 E87.0 Hyperosmolality and hypernatremia Francine Phillips'dhruv, PA-C 11/13/2018 E87.1 Hypo-osmolality and hyponatremia Francine Phillips'dhruv PA-C 11/13/2018 E11.9 Type 2 diabetes mellitus without Francine O'JOSSIE bartlett complications Plan of Treatment 05/14/2019 - Lupe Cabrales MDF10.11 Alcohol abuse, in remissionNew Labs:CBC Auto Diff, Ordered: 05/14/19Comp Metabolic Panel, Ordered: 05/14/19Vitamin B12, Ordered: 05/14/19Comments:Please do blood test after fasting for 8 hoursFollow up:Follow up in 2 month.E11.9 Type 2 diabetes mellitus without complicationsComments:Keep healthy diet and lifestyle. Continue Metformin for now.We will recheck your HbA1c in 3 months to see your glucose control.G40.909 Epilepsy, unspecified, not intractable, without status epilepticusComments:We will refer you to a neurologist for EEG study for your seizure and further followup.Referral:Osmar Olivarez MD, GjxbwqvxlH82.9 Anxiety disorder, unspecifiedComments:Continue Zoloft 20mg for now. Functional Status Description No Information Available Mental Status Description No Information Available Referrals Refer to Dr Reason for Referral Status Appt Date Osmar Olivarez MD 5 episodes of seizure in life, recent seizure Created due to alcohol withdrwal, do eeg to evaluate underlying epilepsy [address] [place] [address] [place] [address] [phone] Tomasz Edward MD new diabetes (seen in the hospital) Sent 03/13/[address] [place] [id number] [phone]
[2019-05-24] MEDS ORDERED: NS 0.9% 1000 ML** 1,000 ML IV ONE (08:12)
[2019-05-24] MEDS ORDERED: Thiamine INJ* 100 MG, Folic Acid IV* 1 MG, Multiple Vitamin IV ADULT* 10 ML in NS 0.9% ... IV ONE (08:12)
[2019-05-24] MEDS ORDERED: Lorazepam PYXIS KEY PRN (08:15)
[2019-05-24] MEDS ORDERED: LORazepam INJ* 2 MG/ML 1 ML VIAL IV PUSH ONE (08:15)
--- NOTE | 2019-05-24 08:18 | ED ---
Substance Abuse/Use - HPI Summary HPI Summary: Pt. is a 53-year-old male who presents emergency department with complaints of alcohol withdrawal. About a pint of vodka a day. His last drink was yesterday. Patient states he has gone through withdrawal the past and has had withdrawal seizures. Patient notes nausea, anxiety and tremors. Denies fever, chest pain, shortness of breath, vomiting. Patient has no other past medical history. Patient states he is currently working with [facility] and is attempting to get placed in inpatient rehabilitation. Sxs are moderate in severity. No current modifying factors. - History Of Current Complaint Chief Complaint: EDSubstanceAbuse Stated Complaint: WITHDRAWL PER PT Time Seen by Provider: 05/24/19 07:59 Hx Obtained From: Patient - Allergies/Home Medications Allergies/Adverse Reactions: Allergies Allergy/AdvReac Type Severity Reaction Status Date / Time No Known Allergies Allergy Verified 01/30/19 11:27 Home Medications: Home Medications Fluoxetine HCl 20 mg PO QPM 05/24/19 [History Confirmed 05/24/19] Magnesium 1 tab PO QPM 05/24/19 [History Confirmed 05/24/19] Naltrexone TAB* 50 mg PO QPM 05/24/19 [History Confirmed 05/24/19] Potassium 1 tab PO QAM 05/24/19 [History Confirmed 05/24/19] Vitamin B-1 TAB 100 MG* 1 tab PO BID 05/24/19 [History Confirmed 05/24/19] PMH/Surg Hx/FS Hx/Imm Hx Previously Healthy: Yes Endocrine/Hematology History: Reports: Hx Diabetes - new diagnosis Denies: Hx Anticoagulant Therapy Cardiovascular History: Reports: Hx Hypertension Respiratory History: Reports: Other Respiratory Problems/Disorders - HOSPITALIZED FOR PLEURAL EFFUSION 11/2014. History: Reports: Hx Acute Renal Failure - this admission, no history Sensory History: Reports: Hx Contacts or Glasses Denies: Hx Deafness, Hx Hearing Aid Opthamlomology History: Reports: Hx Contacts or Glasses Neurological History: Reports: Hx Seizures - last seizure three weeks ago Psychiatric History: Reports: Hx Anxiety, Hx Depression, Hx Substance Abuse - Surgical History Surgery Procedure, Year, and Place: Right & left inguinal, umbilical hernia surgeries (all 15+ years ago) Hx Anesthesia Reactions: No - Immunization History Date of Tetanus Vaccine: utd Date of Influenza Vaccine: none Infectious Disease History: No Infectious Disease History: Denies: Traveled Outside the [place] in Last 30 Days - Family History Known Family History: Positive: Unknown - Patient adopted, Non-Contributory - Social History Occupation: Unemployed Lives: With Family Alcohol Use: None Alcohol Amount: 1+ pints vodka/d Hx Substance Use: Yes - etoh Substance Use Type: Reports: None Substance Use Comment - Amount & Last Used: very rarely Hx Tobacco Use: No Smoking Status (MU): Never Smoked Tobacco Review of Systems Constitutional: Negative Negative: Fever Cardiovascular: Negative Negative: Chest Pain Respiratory: Negative Negative: Shortness Of Breath Positive: Nausea. Negative: Vomiting Positive: Other - tremors Neurological: Negative All Other Systems Reviewed And Are Negative: Yes Physical Exam Triage Information Reviewed: Yes Vital Signs On Initial Exam: Initial Vitals Temp Pulse Resp BP Pulse Ox 98.1 F 79 16 173/106 98 05/24/19 07:37 05/24/19 07:37 05/24/19 07:37 05/24/19 07:37 05/24/19 07:37 Vital Signs Reviewed: Yes Appearance: Positive: No Pain Distress - Pt. sitting up in bed. Tremor noted to UEs. Appears uncomfortable but nontoxic. Skin: Positive: Warm, Dry Head/Face: Positive: Normal Head/Face Inspection Eyes: Positive: Normal, EOMI, CESAR Neck: Positive: Supple Respiratory/Lung Sounds: Positive: Clear to Auscultation, Breath Sounds Present Cardiovascular: Positive: Normal, RRR Abdomen Description: Positive: Nontender, Soft Musculoskeletal: Positive: Other - Tremor to UEs. Neurological: Positive: Normal, CN Intact II-III Psychiatric: Positive: Affect/Mood Appropriate Procedures - Sedation Patient Received Moderate/Deep Sedation with Procedure: No Diagnostics - Vital Signs Vital Signs Temp Pulse Resp BP Pulse Ox 05/24/19 07:37 98.1 F 79 16 173/106 98 - Laboratory Result Diagrams: 05/24/19 08:23 05/24/19 08:23 Lab Statement: Any lab studies that have been ordered have been reviewed, and results considered in the medical decision making process. Course/Dx - Course Course Of Treatment: Patient presenting with signs and symptoms of alcohol withdrawal. He is afebrile. He is hypertensive, slightly agitated, has visble tremor. Patient has history of withdrawal seizures as well. Patient was started on banana bag given a dose of IV Ativan. EKG done at 0856 shows a sinus rhythm of 70 bpm, normal axis, no STEMI. [facility], social contact worker, working on getting pt. into an inpt. rehab facility today. back shoe worker was able to get pt. a bed at [facility] rehab on Monday. Case discussed with Dr. Galdamez and she agrees to admit pt. Pt. agreeable to admission. - Diagnoses Differential Diagnosis/HQI/PQRI: Positive: Alcohol Abuse, Alcohol Withdrawal Provider Diagnoses: Alcohol withdrawal Discharge ED - Sign-Out/Discharge Documenting (check all that apply): Patient Departure - Discharge Plan Condition: Stable Disposition: ADMITTED TO [facility] Referrals: Leon Herman MD [Primary Care Provider] - - Billing Disposition and Condition Condition: STABLE Disposition: Admitted to [facility]
[2019-05-24] MEDS ORDERED: Lorazepam PYXIS KEY ONE (08:29)
[2019-05-24 08:33] LABS: ABS Eosinophils 0.1 10^3/ul (0-0.6); ABS Lymphocytes 0.7 10^3/ul (1.0-4.8); ABS Monocytes 0.5 10^3/ul (0-0.8); ABS Neutrophils 3.7 10^3/ul (1.5-7.7); Eosinophil % 2.6 %; Hematocrit 44 % (42-52); Hemoglobin 15.4 g/dL (14.0-18.0); Lymphocyte % 13.1 %; Mean Corpuscular HGB Conc 35 g/dL (31-36); Mean Corpuscular Hemoglobin 34 pg (27-31); Mean Corpuscular Volume 97 fL (80-94); Mean Platelet Volume 8.5 fL (7.4-10.4); Nucleated Red Blood Cells % 0.2; Platelet Count 103 10^3/uL (150-450); Red Blood Count 4.51 10^6 /uL (4.18-5.48); Red Cell Distribution Width 17 % (10-15)
[2019-05-24] MEDS: Thiamine TAB* 100 MG TAB PO SCH (08:36)
[2019-05-24 08:48] LABS: ALT 45 U/L (7-52); AST 81 U/L (13-39); Albumin 4.3 g/dL (3.2-5.2); Albumin/Globulin Ratio 1.5 (1-3); Alkaline Phosphatase 189 U/L (34-104); Anion Gap 10 mmol/L (2-11); BUN/Creatinine Ratio 19.2 (8-20); Blood Urea Nitrogen 14 mg/dL (6-24); CO2 Carbon Dioxide 31 mmol/L (22-32); Calcium 9.6 mg/dL (8.6-10.3); Chloride 99 mmol/L (101-111); EGFR African American 137.1 (>60); EGFR Non-African American 113.3 (>60); Globulin 2.8 g/dL (2-4); Glucose 136 mg/dL (70-100); Potassium 4.1 mmol/L (3.5-5.0); Sodium 140 mmol/L (135-145); Total Protein 7.1 g/dL (6.4-8.9)
[2019-05-24 08:49] LABS: Troponin I 0.01 ng/mL (<0.03)
[2019-05-24 09:36] LABS: Alcohol < 10 mg/dL (<10)
[2019-05-24] MEDS: Folic Acid TAB* 1 MG PO SCH (09:45)
[2019-05-24] MEDS: Multivitamins/Minerals TAB PO SCH (09:46)
[2019-05-24] MEDS ORDERED: LORazepam TAB(*) 1 MG PO SCH (14:00)
[2019-05-24 14:11] LABS: Activated Partial Thrombo Time 38.3 seconds (26.0-38.0); INR 1.15 (0.82-1.09)
[2019-05-24 14:37] LABS: Urine Appearance Cloudy; Urine Bilirubin Negative (Negative); Urine Blood Negative (Negative); Urine Color Amber; Urine Glucose Negative (Negative); Urine Ketones Negative (Negative); Urine Nitrite Negative (Negative); Urine Protein 2+(100 mg/dL) (Negative); Urine Specific Gravity 1.019 (1.010-1.030); Urine Urobilinogen Negative (Negative)
[2019-05-24 14:43] LABS: Urine Bacteria 1+ (Absent); Urine Red Blood Cell Trace(0-2/hpf) (Absent); Urine Squamous Epithelial Cell Present (Absent); Urine White Blood Cell Trace(0-5/hpf) (Absent)
[2019-05-24 14:56] LABS: Urine Benzodiazepine Screen Presumptive Positive (None Detect); Urine Opiates Screen None Detected (None Detect)
[2019-05-24] MEDS: LORazepam TAB(*) 1 MG PO SCH ×2 (15:46→21:53)
[2019-05-24] MEDS: Heparin VIAL(*) 5000 UNITS/ML VIAL (FIVE THOUSAND) SUBCUT SCH ×2 (15:47→21:54)
[2019-05-24] MEDS ORDERED: Dextrose 50% VIAL 50 ml IV PUSH PRN (16:53)
[2019-05-24] MEDS: Insulin LISPRO* 1 UNITS UNIT SUBCUT SCH ×2 (17:52→18:56)
[2019-05-24] MEDS: FLUoxetine CAP* 20 MG PO SCH (18:23)
[2019-05-24] MEDS: Naltrexone TAB* 50 MG TAB PO SCH (19:02)
[2019-05-24] MEDS: metFORMIN* 500 MG TAB PO SCH (20:04)
--- NOTE | 2019-05-24 20:16 | HP ---
CC: Leon Herman MD; Tomasz Edward MD * HISTORY AND PHYSICAL: DATE OF ADMISSION: 05/24/19 PRIMARY CARE PROVIDER: Leon Herman MD OTHER PROVIDER: Tomasz Edward MD ATTENDING PHYSICIAN: Darcie Estrella MD * (dictated by SUKUMAR Mcmillan). CHIEF COMPLAINT: Alcohol withdrawal. HISTORY OF PRESENT ILLNESS: Mr. Ladd is a 53-year-old male with past medical history of diabetes mellitus, not on insulin, alcoholism, alcohol withdrawal seizures, who presented to the ER today with complaints of alcohol withdrawal symptoms. He presents out of concern for withdrawal seizures, as he has a history of this. His last seizure was approximately 2 weeks ago when he was in [place]. He states that his mother recently and he was consuming excessive amounts of alcohol. He stopped suddenly and developed seizures. He states that he had had 2 seizures in a row at that time. He was staying with his sister who called 911; he spent 3 days hospitalized in [place]. He has since returned and has been consuming alcohol for the last couple of days. His last drink was yesterday afternoon. He drank less than 1 pint of vodka yesterday. He presents today with request to go to [facility] for rehabilitation on Monday and plans to spend the weekend at the hospital on withdrawal protocol. At this time, he complains of some mild gastrointestinal upset without nausea or vomiting. He states he feels "shaky," but is otherwise feeling "okay." He is diaphoretic intermittently with intermittent chills. He denies palpitations , headache, chest pain, shortness of breath. He denies recent fall or head injury. He has no other complaints today. He uses naltrexone daily for alcoholism. He also takes daily thiamine, folate, and multivitamin. In the ER, the patient received a full workup including laboratory data revealing a thrombocytopenia, which is chronic. The patient also has elevated bilirubin, AST and alk phos, which are also chronic. Lipase less than 10. Serum alcohol less than 10. An EKG was obtained and shows normal sinus rhythm with a rate of 70. There are some T-wave inversions in V1 to V3 which are unchanged from most recent EKG. In the ER, the patient was given lorazepam 2 mg IV push, 1 mg folic acid, 100 mg thiamine, 1 L of normal saline. The hospitalist team was asked to evaluate the patient for admission. PAST MEDICAL HISTORY: 1. Diabetes mellitus, not on insulin. 2. Alcoholism. 3. History of alcohol withdrawal seizures. 4. History of diverticulitis. 5. Thrombocytopenia. 6. History of GI bleed. 8. Hemorrhoids. PAST SURGICAL HISTORY: Hernia x3 umbilical, bilateral inguinal. HOME MEDICATIONS: 1. Fluoxetine 20 mg p.o. at bedtime. 2. Folic acid 1 mg p.o. daily. 3. Magnesium 1 tab p.o. daily. 4. Metformin 750 mg p.o. b.i.d. 5. Multivitamin/minerals 1 tab daily. 6. Naltrexone 50 mg p.o. at bedtime. 7. Potassium 1 tab daily. 8. Thiamine 100 mg p.o. daily. DRUG ALLERGIES: No known drug allergies. FAMILY HISTORY: No family history available as the patient is adopted. SOCIAL HISTORY: The patient quit smoking approximately 10 years ago, although he does admit to an occasional cigarette since that time. Prior to that, he smoked for 8 years 1 pack per day. He drinks 4 to 5 pints of liquor per week. 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 He is single without children and lives with his significant other. In the event that he unable to make his own medical decisions, he has appointed his significant other, Francine Echeverriaus to be his surrogate decision maker. REVIEW OF SYSTEMS: A 14-point review of systems has been performed and all the pertinent positives and negatives are in the HPI, all other systems are negative. PHYSICAL EXAMINATION GENERAL: Mr. Ladd is a well-developed, well-nourished, slightly overweight, middle-aged, white male who is sitting in bed. He appears mildly anxious, diaphoretic, and tremulous. HEENT: PERRL, EOMI without nystagmus. Nonicteric sclerae. Hearing is grossly intact. Oral mucous membranes are moist. There are no lesions. The pharynx is clear without erythema or exudates. Tongue is at midline. Palate elevates symmetrically. PULMONARY: Symmetrical chest expansion without use of accessory muscles. Clear to auscultation bilaterally without rhonchi, wheezes, or rales. CARDIOVASCULAR: Regular rate and rhythm with S1, S2 present without murmurs, rubs, clicks, or gallops. There is no JVD or peripheral edema. Radial and pedal pulses are palpable. ABDOMEN: Bowel sounds in all quadrants. Soft, nontender to palpation. No noted hepatosplenomegaly. MUSCULOSKELETAL: 5/5 strength bilaterally in upper and lower extremities. NEURO: The patient is awake. He is alert and oriented x3. Cranial nerves II through XII are grossly intact. He is able to move all of his extremities with the motor strength of 5/5 bilaterally in upper and lower extremities. Gauge And Weigh Machine Adjuster strength is equal. DIAGNOSTIC STUDIES/LAB DATA: MCV 97, MCH 34, RDW 17, platelets 103. Total bilirubin 1.80. AST 81, alk phos 189. Lipase less than 10. Serum alcohol less than 10. EKG: Normal sinus rhythm with a rate of 70 with T-wave inversions in V1 to V3, which remain unchanged from previous EKG. ASSESSMENT AND PLAN: Mr. Ladd is a 53-year-old male with past medical history of diabetes mellitus, not on insulin; alcoholism; history of alcohol withdrawal seizures; thrombocytopenia, who presented to the ER today with complaints of alcohol withdrawal symptoms and concern for management of symptoms and prevention of seizure. The patient will be admitted inpatient for: 1. Alcohol withdrawal with history of withdrawal seizures. The patient presents with just under 24 hours of alcohol withdrawal and is diaphoretic, tremulous, and has mild gastrointestinal upset. At this time, he has not experienced a seizure, but he is here for seizure prevention and ultimate discharge to [facility] on Monday. At this time, we will continue his home thiamine, folate, and multivitamin. He will be placed on WAM protocol. He will also receive lorazepam taper. He will continue his home naltrexone. 2. Diabetes mellitus. Continue metformin. 3. Thrombocytopenia. The patient has a history of thrombocytopenia with platelets of 103 currently. We will continue to monitor platelets. 4. Depression. Continue fluoxetine. 5. DVT prophylaxis. According to DVT Risk Assessment, the patient scores 2 placing him at moderate risk. He will be started on heparin subcu. Continue to monitor platelets while on this medications. 6. Code status. Full code. TIME SPENT: Approximately 60 minutes were spent on this admission, greater than half of that time was spent [id number] with the patient obtaining history , performing physical, and reviewing the plan of care. The case has been reviewed with my attending, Dr. Estrella, who is in agreement with the plan of care. SUKUMAR RODRIGUEZ [id number]/[facility] #: [id number] [facility]
[2019-05-25 05:32] LABS: BUN/Creatinine Ratio 16.4 (8-20); EGFR African American 151.3 (>60); EGFR Non-African American 125.1 (>60); Potassium 3.4 mmol/L (3.5-5.0)
[2019-05-25 06:09] LABS: ABS Basophils 0.1 10^3/ul (0-0.2); ABS Eosinophils 0.2 10^3/ul (0-0.6); ABS Lymphocytes 0.8 10^3/ul (1.0-4.8); ABS Monocytes 0.4 10^3/ul (0-0.8); Eosinophil % 4.8 %; Hematocrit 43 % (42-52); Hemoglobin 14.6 g/dL (14.0-18.0); Lymphocyte % 17.5 %; Mean Corpuscular HGB Conc 34 g/dL (31-36); Mean Corpuscular Hemoglobin 33 pg (27-31); Mean Corpuscular Volume 98 fL (80-94); Mean Platelet Volume 8.5 fL (7.4-10.4); Platelet Count 80 10^3/uL (150-450); Red Blood Count 4.38 10^6 /uL (4.18-5.48); Red Cell Distribution Width 17 % (10-15); White Blood Count 4.5 10^3/uL (3.5-10.8)
[2019-05-25] MEDS: LORazepam TAB(*) 1 MG PO SCH ×2 (06:17→17:33)
[2019-05-25] MEDS: Heparin VIAL(*) 5000 UNITS/ML VIAL (FIVE THOUSAND) SUBCUT SCH (06:17)
[2019-05-25] MEDS: Insulin LISPRO* 1 UNITS UNIT SUBCUT SCH ×3 (07:45→17:31)
[2019-05-25] MEDS ORDERED: Thiamine TAB* 100 MG TAB PO SCH (09:00)
[2019-05-25] MEDS ORDERED: Folic Acid TAB* 1 MG PO SCH (09:00)
[2019-05-25] MEDS: Thiamine TAB* 100 MG TAB PO SCH (10:05)
[2019-05-25] MEDS: Folic Acid TAB* 1 MG PO SCH (10:05)
[2019-05-25] MEDS: Multivitamins/Minerals TAB PO SCH (10:05)
[2019-05-25] MEDS: metFORMIN* 500 MG TAB PO SCH ×2 (10:05→19:54)
--- NOTE | 2019-05-25 13:10 | PN ---
Subjective Date of Service: 05/25/19 Interval History: HOSPITALIST PROGRESS NOTE Patient seen and examined at bedside. Care reviewed and d/w Nicole Franco RN. He feels well today. Tremors are still present, but less intense. Family History: Unchanged from Admission Social History: Unchanged from Admission Past Medical History: Unchanged from Admission Objective Active Medications: Dextrose (Dextrose 50% Vial 50 Ml*) 25 ml IV PUSH .FOR FS < 60 - SS PRN PRN Reason: FS < 60 Fluoxetine HCl (Prozac Cap*) 20 mg PO QPM [facility] Last Admin: 05/24/19 18:23 Dose: 20 mg Folic Acid (Folvite Tab*) 1 mg PO DAILY [facility] Last Admin: 05/25/19 10:05 Dose: 1 mg Heparin Sodium (Porcine) (Heparin Vial(*)) 5,000 units SUBCUT Q8HR [facility] Last Admin: 05/25/19 06:17 Dose: 5,000 units Insulin Human Lispro (Humalog*) 0 units SUBCUT AC [facility]; Protocol Last Admin: 05/25/19 12:32 Dose: Not Given Lorazepam (Ativan Tab(*)) 2 mg PO Q12H [facility]; Taper Stop: 05/27/19 09:59 Last Admin: 05/25/19 06:17 Dose: 2 mg Lorazepam (Ativan Tab(*)) 0 - 6 mg PO .PER [facility] PROTOCOL [facility]; Protocol Last Admin: 05/24/19 20:04 Dose: 2 mg Metformin HCl (Glucophage*) 750 mg PO BID [facility] Last Admin: 05/25/19 10:05 Dose: 750 mg Miscellaneous (Ativan Pyxis Vela) 1 ea N/A .ATIVAN IV VELA PRN PRN Reason: PYXIS VELA Multivitamins/Minerals (Theragran/Minerals Tab*) 1 tab PO DAILY [facility] Last Admin: 05/25/19 10:05 Dose: 1 tab Naltrexone HCl (Naltrexone Tab*) 50 mg PO QPM [facility]; Protocol Last Admin: 05/24/19 19:02 Dose: Not Given Thiamine HCl (Vitamin B-1 Tab*) 100 mg PO DAILY [facility] Last Admin: 05/25/19 10:05 Dose: 100 mg Vital Signs - 8 hr 05/25/19 05/25/19 05/25/19 06:17 06:22 08:00 Temperature 98 F Pulse Rate 59 59 Respiratory 16 18 Rate Blood Pressure 142/92 139/97 (mmHg) O2 Sat by Pulse 95 Oximetry 05/25/19 05/25/19 05/25/19 08:05 10:20 10:45 Temperature 97.3 F Pulse Rate 70 Respiratory 18 17 18 Rate Blood Pressure 138/88 (mmHg) O2 Sat by Pulse 97 Oximetry 05/25/19 12:40 Temperature 97.6 F Pulse Rate 70 Respiratory 18 Rate Blood Pressure 143/84 (mmHg) O2 Sat by Pulse 97 Oximetry Oxygen Devices in Use Now: None Appearance: Pleasant middle aged gentleman lying in bed in NAD. Eyes: No Scleral Icterus Ears/Nose/Mouth/Throat: Mucous Membranes Moist Neck: Trachea Midline Respiratory: Symmetrical Chest Expansion and Respiratory Effort, Clear to Auscultation Cardiovascular: NL Sounds; No Murmurs; No JVD, RRR Neurological: Alert and Oriented x 3, NL Muscle Strength and Tone, - - Mild extremities tremor Result Diagrams: 05/25/19 05:05 05/25/19 05:05 Assess/Plan/Problems-Billing Assessment: Mr Ladd is a 53yo M with PMH of ETOH abuse with h/o withdrawal seizure, type 2 DM, diverticulitis, who presented to ED requesting detox from alcohol. - Patient Problems (1) ETOH abuse Comment: - Continue WAM protocol and Ativan taper. - Plan to d/c to [facility] on 05/27. - Continue thiamine, folate, multivitamins. (2) Diabetes mellitus, type 2 Comment: - Continue Metformin and Lispro SS. - Hb A1c 5.5 in March. (3) Thrombocytopenia Comment: - Chronic, secondary to alcohol induced BM supression. - Continue to monitor. (4) Depression Comment: - Continue Fluoxetine. (5) DVT prophylaxis Comment: - SCDs and ambulation. (6) Full code status
[2019-05-25] MEDS ORDERED: Potassium Chlor TAB* 20 MEQ TAB.ER PO ONE (13:26)
[2019-05-25] MEDS: FLUoxetine CAP* 20 MG PO SCH (17:33)
[2019-05-25] MEDS ORDERED: Acetaminophen TAB* 325 MG PO PRN (19:45)
[2019-05-25] MEDS: Naltrexone TAB* 50 MG TAB PO SCH (19:53)
[2019-05-26] MEDS: LORazepam TAB(*) 1 MG PO SCH ×2 (05:50→17:06)
[2019-05-26] MEDS: Insulin LISPRO* 1 UNITS UNIT SUBCUT SCH ×3 (07:41→17:05)
[2019-05-26] MEDS: Thiamine TAB* 100 MG TAB PO SCH (09:39)
[2019-05-26] MEDS: Folic Acid TAB* 1 MG PO SCH (09:39)
[2019-05-26] MEDS: metFORMIN* 500 MG TAB PO SCH ×2 (09:39→20:49)
[2019-05-26] MEDS: Multivitamins/Minerals TAB PO SCH (09:39)
--- NOTE | 2019-05-26 10:25 | PN ---
Subjective Date of Service: 05/26/19 Interval History: HOSPITALIST PROGRESS NOTE Patient seen and examined at bedside. Care reviewed and d/w Nicole Franco RN. He feels well today, offers no new complaints. Family History: Unchanged from Admission Social History: Unchanged from Admission Past Medical History: Unchanged from Admission Objective Active Medications: Acetaminophen (Tylenol Tab*) 650 mg PO Q6H PRN PRN Reason: MILD PAIN AND TEMP Last Admin: 05/25/19 19:53 Dose: 650 mg Dextrose (Dextrose 50% Vial 50 Ml*) 25 ml IV PUSH .FOR FS < 60 - SS PRN PRN Reason: FS < 60 Fluoxetine HCl (Prozac Cap*) 20 mg PO QPM [facility] Last Admin: 05/25/19 17:33 Dose: 20 mg Folic Acid (Folvite Tab*) 1 mg PO DAILY [facility] Last Admin: 05/26/19 09:39 Dose: 1 mg Insulin Human Lispro (Humalog*) 0 units SUBCUT AC [facility]; Protocol Last Admin: 05/26/19 07:41 Dose: Not Given Lorazepam (Ativan Tab(*)) 2 mg PO Q12H [facility]; Taper Stop: 05/27/19 09:59 Last Admin: 05/26/19 05:50 Dose: 2 mg Lorazepam (Ativan Tab(*)) 0 - 6 mg PO .PER [facility] PROTOCOL [facility]; Protocol Last Admin: 05/24/19 20:04 Dose: 2 mg Metformin HCl (Glucophage*) 750 mg PO BID [facility] Last Admin: 05/26/19 09:39 Dose: 750 mg Miscellaneous (Ativan Pyxis Vela) 1 ea N/A .ATIVAN IV VELA PRN PRN Reason: PYXIS VELA Multivitamins/Minerals (Theragran/Minerals Tab*) 1 tab PO DAILY [facility] Last Admin: 05/26/19 09:39 Dose: 1 tab Naltrexone HCl (Naltrexone Tab*) 50 mg PO QPM [facility]; Protocol Last Admin: 05/25/19 19:53 Dose: 50 mg Thiamine HCl (Vitamin B-1 Tab*) 100 mg PO DAILY [facility] Last Admin: 05/26/19 09:39 Dose: 100 mg Vital Signs - 8 hr 05/26/19 05/26/19 05/26/19 05:50 08:00 08:15 Temperature 97.8 F Pulse Rate 61 Respiratory 16 18 18 Rate Blood Pressure 148/98 (mmHg) O2 Sat by Pulse 97 Oximetry Oxygen Devices in Use Now: None Appearance: Pleasant gentleman lying in bed in NAD Eyes: No Scleral Icterus Ears/Nose/Mouth/Throat: Mucous Membranes Moist Neck: Trachea Midline Respiratory: Symmetrical Chest Expansion and Respiratory Effort, Clear to Auscultation Cardiovascular: NL Sounds; No Murmurs; No JVD, RRR Neurological: Alert and Oriented x 3, NL Muscle Strength and Tone Result Diagrams: 05/25/19 05:05 05/25/19 05:05 Assess/Plan/Problems-Billing Assessment: Mr Ladd is a 53yo M with PMH of ETOH abuse with h/o withdrawal seizure, type 2 DM, diverticulitis, who presented to ED requesting detox from alcohol. - Patient Problems (1) ETOH abuse Comment: - Continue WAM protocol and Ativan taper. - Plan to d/c to [facility] on 05/27. - Continue thiamine, folate, multivitamins. (2) Diabetes mellitus, type 2 Comment: - Continue Metformin and Lispro SS. - Hb A1c 5.5 in March. (3) Thrombocytopenia Comment: - Chronic, secondary to alcohol induced BM supression. - Continue to monitor. (4) Depression Comment: - Continue Fluoxetine. (5) DVT prophylaxis Comment: - SCDs and ambulation. (6) Full code status
[2019-05-26] MEDS: FLUoxetine CAP* 20 MG PO SCH (17:06)
[2019-05-26] MEDS: Naltrexone TAB* 50 MG TAB PO SCH (17:08)
[2019-05-27] MEDS ORDERED: LORazepam TAB(*) 1 MG PO ONE (06:00)
[2019-05-27] MEDS: Multivitamins/Minerals TAB PO SCH (07:21)
[2019-05-27] MEDS: Folic Acid TAB* 1 MG PO SCH (07:21)
[2019-05-27] MEDS: metFORMIN* 500 MG TAB PO SCH (07:21)
[2019-05-27] MEDS: Thiamine TAB* 100 MG TAB PO SCH (07:21)
[2019-05-27] MEDS: Insulin LISPRO* 1 UNITS UNIT SUBCUT SCH (07:21)
[2019-05-27 07:41] VITALS: BP 147/88
--- NOTE | 2019-05-27 22:39 | DS ---
CC: Dr. Herman; Dr. Edward * DISCHARGE SUMMARY: DATE OF ADMISSION: 05/24/19 DATE OF DISCHARGE: 05/27/19 PRIMARY CARE PROVIDER: Dr. Herman. NIP WRAPPER: Dr. Edward. DISCHARGE DIAGNOSIS: Alcohol withdrawal. SECONDARY DIAGNOSES: 1. Alcohol abuse with history of withdrawal seizure. 2. Type 2 diabetes. 3. Diverticulitis. 4. ETOH-related thrombocytopenia. MEDICATION LIST: 1. Acetaminophen 650 mg p.o. q.6 hours p.r.n. pain or fever. 2. Fluoxetine 20 mg p.o. at bedtime. 3. Folic acid 1 mg p.o. daily. 4. Magnesium 1 tablet p.o. at bedtime. 5. Metformin 750 mg p.o. b.i.d. 6. Multivitamin with minerals 1 tablet p.o. daily. 7. Naltrexone 50 mg p.o. at bedtime. 8. Potassium 1 tablet p.o. daily. 9. Thiamine 100 mg p.o. daily. HOSPITAL COURSE: Mr. Ladd is a 53-year-old male with past medical history as stated above that presented to the emergency room with complaints of alcohol withdrawal symptoms. His major concern was that he had withdrawal seizures in the past. His last seizure has been 2 weeks ago while he was in [place]. His mother recently . He was confirming excessive amounts of alcohol and when he stopped suddenly, he developed seizures. For more details about his presentation, I refer to his history and physical but despite being hospitalized in [place], when the patient returned to [place], he continued to consume alcohol. On presentation, he was complaining of tremors and mild diaphoresis. He was started on WAM protocol and lorazepam taper. He had symptomatic improvement and long term care social worker was able to secure him a bed at [facility] for inpatient rehab. The patient completed his lorazepam taper, was feeling improved and he was felt to be medically stable to be discharged to inpatient rehab today. PHYSICAL EXAMINATION: Vital Signs: Temperature 97.3, heart rate is 69, respiratory rate 16, oxygen saturation 99% on room air, blood pressure is 147/ 88. General: The patient is a pleasant middle-aged gentleman, sitting up in bed , in no acute distress. CVS: Normal S1, S2. Regular rate and rhythm. Chest: Breath sounds present bilaterally with no added sounds. Neurologic: He is alert and oriented x3. Able to move all 4 extremities. Has minimal extremity tremors. DIET: Consistent carb diet. ACTIVITIES: As tolerated. DISPOSITION: To [facility]. STATUS WHILE IN THE HOSPITAL: Inpatient. CONDITION AT THE TIME OF DISCHARGE: Fair. Please keep in mind this is a summarized version of this patient's hospital stay. If you need more information, please feel free to call me at [phone] or please obtain the full medical records. TIME SPENT: Approximately 45 minutes were spent to complete this discharge. [id number]/[facility] #: [id number] [facility]
== END 2019-05-27 08:02 | DRG 775 ==
LOC: ED 07:35 → MED 12:32
PROVIDERS: ADMIT Internal Medicine; ATTEND Internal Medicine
DX: F10.239 Alcohol dependence with withdrawal, unspecified (principal); E11.9 Type 2 diabetes mellitus without complications; D69.59 Other secondary thrombocytopenia; Y90.0 Blood alcohol level of less than 20 mg/100 ml; K64.9 Unspecified hemorrhoids; F32.9 Major depressive disorder, single episode, unspecified; I10 Essential (primary) hypertension; F41.9 Anxiety disorder, unspecified; Z79.84 Long term (current) use of oral hypoglycemic drugs; Z79.899 Other long term (current) drug therapy; Z72.0 Tobacco use; Z28.21 Immunization not carried out because of patient refusal
CPT/HCPCS: 36415; 80048; 80053; 80307; 80320; 81003; 81015; 83605; 83690; 84484; 85025; 85060; 85610; 85730; 87086; 93005; 96365; 96375; 99283; A9270-GY; G0480; J1644; J2060; J3411

== ENCOUNTER 2019-08-14 08:18 | Emergency (ER) | payer OTHER ==
[2019-08-14] MEDS ORDERED: Thiamine INJ* 100 MG, Folic Acid IV* 1 MG, Multiple Vitamin IV ADULT* 10 ML in NS 0.9% ... IV ONE (08:48)
[2019-08-14] MEDS ORDERED: Lorazepam PYXIS KEY PRN (09:04)
[2019-08-14] MEDS ORDERED: LORazepam INJ* 2 MG/ML 1 ML VIAL IV PUSH ONE (09:04)
[2019-08-14] MEDS ORDERED: Lorazepam PYXIS KEY ONE (09:10)
--- OUTSIDE RECORDS SUMMARY | 2019-08-14 09:16 | XMS REPORT | Continuity of Care Document ---
:1965 External Reference #:[id number] Author Name Leon Herman MD (transmitted by agent of provider Macarena Felder) Address [address] [place] [id number] Care Team Providers Name Role Phone Leon Herman MD - Hospitalist Care Team Information Pusher Runner [phone] Problems Active Problems Provider Date Type 2 [...] only with Fe treatment courses - constipated 2019 Chronic alcoholism in remission Bakari Cifuentes MD Onset: 01/28/1999 Note: in January 2019 attending [facility] outpt and sober 8 wks; Social History Type Date Description Comments Sex Unknown Tobacco Use Start: Unknown End: Former Cigarette Smoker Unknown Smoking Status Reviewed: 07/05/19 Former Cigarette Smoker ETOH Use 05/14/2019 Has consumed alcohol in Has been alcohol the past free for 1week- states binge drinking. At worst a "handle" everyday - 1.75 liters (vodka)- sober since October 2018 Tobacco Use Start: Unknown End: Patient is a former Unknown smoker Recreational Drug Use Denies Drug Use Exercise Type/Frequency Exercises sporadically hiking, hunting, and fishing Allergies, Adverse Reactions, Alerts Description No Known Drug Allergies Medications Active Medications SIG Qnty Indications Ordering Date Provider Doxycycline Take 2 pills 4caps Leon Herman MD 04/04/2019 Monohydrate within 72 hours 100mg of removal of a Capsules tick bite attached for more than 36 hours. Then stop. Freestyle Lite Blood test blood sugar 1units Leon Herman MD 01/08/2019 Glucose Monitoring 3 times daily System and as needed Device for diabetes mellitus Freestyle Lite Test test blood sugar 100units Leon Herman MD 01/08/2019 3 times daily Strips and as needed for diabetes mellitus Blood Glucose Test use four times 100units Leon Herman MD 11/22/2018 daily to check Strips blood glucose for diabetes mellitus Metformin HCL ER 2 tablets by 60tabs Norah Galeana, 750mg mouth twice per DO Tablets ER 24HR day Multivitamin Women 1 by mouth every Unknown day Tablets Folic Acid take one Unknown 800mcg capsule/tablet Tablets daily by mouth Gabapentin 1 three times a 90caps Leon Herman MD 100mg day Capsules B Complex 1 tablet Unknown Capsules once/day Potassium Chloride ER 1 by mouth every Unknown day 10Meq Capsules ER Fluoxetine HCL 1 by mouth every Unknown 20mg day Capsules Magnesium 1 by mouth every 30tabs Leon Herman MD 400mg Tablets day History Medications Doxycycline Hyclate Take 1 pill if find 3tabs Leon Herman MD 03/22/2019 - tick bite of greater 04/04/[address] than 36 hour duration. Magnesium Citrate drink the entire 296ml Bakari Cifuentes, 01/30/2019 - bottle after dinner 03/11/2019 1.745GM/30ML two days before your Solution procedure. Suprep Bowel Prep take according to the 354ml Tricia Murphy 2018 - Kit instructions you KELSEA Blair 07/04/2019 received, the 17.5-3.13-1.6GM/177M afternoon before and L Solution morning of your procedure. Immunizations Description No Information Available Vital Signs Date Vital Result Comment 07/05/2019 8:03am Height 71 inches 5'11" Weight 201.00 lb with boots Heart Rate 73 /min BP Systolic Sitting 138 mmHg BP Diastolic Sitting 79 mmHg Body Temperature 97.5 F O2 % BldC Oximetry 98 % BMI (Body Mass Index) 28.0 kg/m2 05/14/2019 3:02pm Height 71 inches 5'11" Weight 197.00 lb Heart Rate 82 /min BP Systolic 127 mmHg BP Diastolic 79 mmHg O2 % BldC Oximetry 97 % BMI (Body Mass Index) 27.5 kg/m2 Results Test Acquired Date Facility Test Result H/L Range Note CBC Auto 05/24/2019 [facility] White Blood 5.0 10^3/uL Normal 3.5-10.[address] [place] [address] [phone] Red Blood Count 4.51 10^6/uL Normal 4.18-5.48 Hemoglobin 15.4 g/dL Normal 14.0-18.0 Hematocrit 44 % Normal 42-52 Mean Corpuscular Volume 97 fL High 80-94 Mean Corpuscular Hemoglobin 34 pg High 27-31 Mean Corpuscular HGB Conc 35 g/dL Normal 31-36 Red Cell Distribution Width 17 % High 10-15 Platelet Count 103 10^3/uL Low 150-450 Mean Platelet Volume 8.5 fL Normal 7.4-10.4 Abs Neutrophils 3.7 10^3/uL Normal 1.5-7.7 Abs Lymphocytes 0.7 10^3/uL Low 1.0-4.8 Abs Monocytes 0.5 10^3/uL Normal 0-0.8 Abs Eosinophils 0.1 10^3/uL Normal 0-0.6 Abs Basophils 0.0 10^3/uL Normal 0-0.2 Abs Nucleated RBC 0.0 10^3/uL Granulocyte % 74.3 % Lymphocyte % 13.1 % Monocyte % 9.2 % Eosinophil % 2.6 % Basophil % 0.8 % Nucleated Red Blood Cells % 0.2 Laboratory test 05/24/2019 [facility] Lactic Acid 1.8 mmol/L Normal 0.5-2.0 [address] [place] [address] [phone] Comp Metabolic 05/24/2019 [facility] Sodium 140 mmol/L Normal 135-[address] [place] [address] [phone] Potassium 4.1 mmol/L Normal 3.5-5.0 Chloride 99 mmol/L Low 101-111 Co2 Carbon Dioxide 31 mmol/L Normal 22-32 Anion Gap 10 mmol/L Normal 2-11 Glucose 136 mg/dL High 70-100 Blood Urea Nitrogen 14 mg/dL Normal 6-24 Creatinine 0.73 mg/dL Normal 0.67-1.17 BUN/Creatinine Ratio 19.2 Normal 8-20 Calcium 9.6 mg/dL Normal 8.6-10.3 Total Protein 7.1 g/dL Normal 6.4-8.9 Albumin 4.3 g/dL Normal 3.2-5.2 Globulin 2.8 g/dL Normal 2-4 Albumin/Globulin Ratio 1.5 Normal 1-3 Total Bilirubin 1.80 mg/dL High 0.2-1.0 Alkaline Phosphatase 189 U/L High 34-104 Alt 45 U/L Normal 7-52 Ast 81 U/L High 13-39 Egfr Non- 113.3 >60 Egfr 137.1 >60 2 Laboratory test 05/24/2019 [facility] Lipase < 10 U/L Low 11.0 -82.[address] [place] [address] [phone] Troponin-I (TnI) 0.01 ng/mL <0.03 3 Alcohol < 10 mg/dL Normal <10 Urinalysis Profile 05/24/2019 [facility] Urine Color Celi [address] [place] [address] [phone] Urine Appearance Cloudy Urine Specific [place] 1.019 Normal 1.010-1.030 Urine pH 9.0 Normal 5-9 Urine Urobilinogen Negative Negative Urine Ketones Negative Negative Urine Protein 2+(100 mg/dL) Abnormal Negative Urine Leukocytes Negative Negative Urine Blood Negative Negative Urine Nitrite Negative Negative Urine Bilirubin Negative Negative Urine Glucose Negative Negative Urine White Blood Cell Trace(0-5/hpf) Absent Urine Red Blood Cell Trace(0-2/hpf) Absent Urine Bacteria 1+ Abnormal Absent Urine Squamous Epithelial Cell Present Abnormal Absent Urine Culture And 05/24/2019 [facility] Urine SEE RESULT [address] [place] [address] [phone] CBC Auto Diff 05/16/2019 [facility] White Blood 4.9 10^3/uL Normal 3.5-[address] Count 0.8 [place] [address] [phone] Red Blood Count 4.43 10^6/uL Normal 4.18-5.48 Hemoglobin 14.8 g/dL Normal 14.0-18.0 Hematocrit 44 % Normal 42-52 Mean Corpuscular Volume 98 fL High 80-94 Mean Corpuscular Hemoglobin 33 pg High 27-31 Mean Corpuscular HGB Conc 34 g/dL Normal 31-36 Red Cell Distribution Width 17 % High 10-15 Platelet Count 114 10^3/uL Low 150-450 Mean Platelet Volume 9.9 fL Normal 7.4-10.4 Abs Neutrophils 3.3 10^3/uL Normal 1.5-7.7 Abs Lymphocytes 0.7 10^3/uL Low 1.0-4.8 Abs Monocytes 0.7 10^3/uL Normal 0-0.8 Abs Eosinophils 0.1 10^3/uL Normal 0-0.6 Abs Basophils 0.1 10^3/uL Normal 0-0.2 Abs Nucleated RBC 0.0 10^3/uL Granulocyte % 67.2 % Lymphocyte % 14.8 % Monocyte % 14.2 % Eosinophil % 2.7 % Basophil % 1.1 % Nucleated Red Blood Cells % 0.1 Comp Metabolic 05/16/2019 [facility] Sodium 141 mmol/L Normal 135-[address] [place] [address] [phone] Potassium 3.8 mmol/L Normal 3.5-5.0 Chloride 102 mmol/L Normal 101-111 Co2 Carbon Dioxide 28 mmol/L Normal 22-32 Anion Gap 11 mmol/L Normal 2-11 Glucose 111 mg/dL High 70-100 Blood Urea Nitrogen 11 mg/dL Normal 6-24 Creatinine 0.72 mg/dL Normal 0.67-1.17 BUN/Creatinine Ratio 15.3 Normal 8-20 Calcium 10.0 mg/dL Normal 8.6-10.3 Total Protein 7.0 g/dL Normal 6.4-8.9 Albumin 4.2 g/dL Normal 3.2-5.2 Globulin 2.8 g/dL Normal 2-4 Albumin/Globulin Ratio 1.5 Normal 1-3 Total Bilirubin 1.10 mg/dL High 0.2-1.0 Alkaline Phosphatase 150 U/L High 34-104 Alt 58 U/L High 7-52 Ast 76 U/L High 13-39 Egfr Non- 115.1 >60 Egfr 139.3 >60 5 Laboratory test 05/16/2019 [facility] Vitamin B12 804 pg/mL Normal 180-914 [address] [place] [address] [phone] Laboratory test 03/13/2019 [facility] Hemoglobin A1c 5.5 % Normal 4.0-5.[address] (Glyco HGB) [place] [address] [phone] Basic Metabolic 03/13/2019 [facility] Sodium 140 Normal 135- [address] mmol/[place] [address] [phone] Potassium 4.0 mmol/L Normal 3.5-5.0 Chloride 104 mmol/L Normal 101-111 Co2 Carbon Dioxide 28 mmol/L Normal 22-32 Anion Gap 8 mmol/L Normal 2-11 Glucose 90 mg/dL Normal 70-100 Blood Urea Nitrogen 11 mg/dL Normal 6-24 Creatinine 0.82 mg/dL Normal 0.67-1.17 BUN/Creatinine Ratio 13.4 Normal 8-20 Calcium 9.9 mg/dL Normal 8.6-10.3 Egfr Non- 99.1 >60 Egfr 119.9 >60 8 Laboratory 03/08/2019 [facility] Point of Care 125 High 70- 100 [address] Glucose mg/[place] [address] [phone] Laboratory 02/24/2019 [facility] Pathologist (SEE [address] Review NOTE) [place] [address] [phone] CBC Auto Diff 02/24/2019 [facility] White Blood 8.3 Normal 3.5 -10.[address] Count 10^3/[place] [address] [phone] Red Blood Count 4.73 10^6/uL Normal 4.18-5.48 Hemoglobin 13.1 g/dL Low 14.0-18.0 Hematocrit 39 % Low 42-52 Mean Corpuscular Volume 82 fL Normal 80-94 Mean Corpuscular Hemoglobin 28 pg Normal 27-31 Mean Corpuscular HGB Conc 34 g/dL Normal 31-36 Red Cell Distribution Width 23 % High 10-15 11 Platelet Count 80 10^3/uL Low 150-450 Mean [...] Nucleated Red Blood Cells % 0.0 Laboratory 02/24/2019 [facility] Blood Culture SEE RESULT [address] [place] [address] [phone] Urine Drug SCR 02/24/2019 [facility] Urine None None ED & Pain [address] [place] [address] Screen [phone] Urine Barbiturates Screen None Detected None Detect Urine Benzodiazepine Screen None Detected None Detect Urine Cannabinoids Screen None Detected None Detect Urine Cocaine Screen None Detected None Detect Urine Opiates Screen None Detected None Detect Urine Phencyclidine Screen None Detected None Detect 13 Urinalysis Profile 02/24/2019 [facility] Urine Color Yellow [address] [place] [address] [phone] Urine Appearance Clear Urine Specific [place] 1.014 Normal 1.010-1.030 Urine pH 6.0 Normal [...] Casts Present Abnormal Absent Laboratory test 02/24/2019 [facility] Magnesium 2.0 mg/dL Normal 1.9-2.[address] [place] [address] [phone] Troponin-I (TnI) 0.01 ng/mL <0.04 14 Alcohol < 10 mg/dL Normal <10 Comp Metabolic 02/24/2019 [facility] Sodium 137 mmol/L Normal 135-145 Panel [address] [place] [address] [phone] Potassium 3.3 mmol/L Low 3.5-5.0 Chloride 104 [...] Egfr Non- 96.3 >60 Egfr 116.6 >60 15 Laboratory test 02/24/2019 [facility] Lactic Acid 1.3 mmol/L Normal 0.5-2.0 16 finding [address] [place] [address] [phone] Inr/Protime 02/24/2019 [facility] Inr 1.15 High 0.82-1.09 17 [address] [place] [address] [phone] Laboratory test 02/23/2019 [facility] Point of 93 mg/dL Normal 70-100 18 finding [address] [facility] [address] Glucose [phone] Iron & Iron 01/07/2019 [facility] Iron 32 g/dL Low 50-212 Binding [address] [facility] [place] [address] [phone] Unsaturated Iron Binding < 486 g/dL Total Iron Binding Capacity 501 g/dL High 250-450 Transferrin 358 mg/dL Normal 203-362 % Iron Saturation 6 % Low 15-55 Laboratory test 01/07/2019 [facility] Ferritin 15.2 Low 24- 336 finding [address] [facility] ng/[place] [address] [phone] CBC Auto Diff 01/07/2019 [facility] White Blood 6.6 Normal 3.5 -10.[address] Count 10^3/[place] [address] [phone] Red Blood Count 5.39 10^6/uL Normal 4.18-5.48 Hemoglobin 12.8 g/dL Low 14.0-18.0 Hematocrit 39 % Low 42-52 Mean Corpuscular Volume 73 fL Low 80-94 19 Mean Corpuscular Hemoglobin 24 pg Low 27-31 Mean Corpuscular HGB Conc 33 g/dL Normal 31-36 Red Cell Distribution Width 32 % High 10-15 20 Abs Neutrophils 4.6 10^3/uL Normal 1.5-7.7 Platelet Count 113 10^3/uL Low 150-450 21 Mean Platelet Volume 9.0 fL Normal 7.4-10.4 [...] Blood Cells % 0.0 Cell Morphology 01/07/2019 [facility] Microcytosis 1+ [address] [place] [address] [phone] Hypochromasia 1+ Anisocytosis 2+ Elliptocyte 1+ 1 [place] Severe Sepsis and Septic Shock Management Bundle Measure requires all lactic acids initially measuring >2.0 mmol/L be repeated. 2 Because ethnic data is not always [...] 5 Kidney failure <15 (or dialysis) 3 Troponin-I testing on Plasma Separator Tubes (PST) has a known false positive rate of 0.20-0.40%. All positive troponins reflex immediately to secondary confirmatory testing. Using the [employer] 800 Access Immunoassay systems, the 99th percentile upper reference limit was demonstrated to be < 0.03 ng/mL. 4 SEE RESULT BELOW Name: ABDULLAHI VANESSA : [address]: Darcie Vázquez MD Acct: [id number] Unit: [id number] AGE: 53 Location: [place] [address] Re05/24/19 SEX: M Status: ADM IN SPEC: [id number] ROSAS: 05/24/19-[address] [facility] [address]: Alvaro PATINO REQ: [id number] RECD: 05/24/19-1431 STATUS: AB SCHULTZ DR: Grant Herman MD _ SOURCE: URINE SPDESC: ORDERED: Urine Culture Procedure Result Reported Site Urine Culture Final 05/25/19- 1430 ML No Growth (<1,000 CFU/mL) * ML - Main Lab . END OF REPORT DEPARTMENT OF PATHOLOGY, [address] [place] [address] Liam Oshea M.D. Director [facility] # [id number] 5 Because ethnic data is not always readily [...] 15-29 5 Kidney failure <15 (or dialysis) 6 Normal Range 180 to 914 Indeterminate Range 145 to 180 Deficient Range <145 7 Therapeutic target for the treatment of diabetes mellitus patients is <7% HBA1C, and in selective patients <6.0%. Please refer to [employer] diabetic care guidelines for further information. 8 Because ethnic data is not always readily [...] 15-29 5 Kidney failure <15 (or dialysis) 9 Pharmacist Intern: [id number] 10 Normocytic anemia with thrombocytopenia noted. No blasts or evidence of hemolysis identified. Additional studies as clinically warranted. Reviewed by Dr. Oshea 11 Consistent with Previous Results Reported on 01.07.19 12 SEE RESULT BELOW Name: ABDULLAHI VANESSA : [address]: Mohini Feliz MD Acct: [id number] Unit: [id number] AGE: 53 Location: ED Re02/23/19 SEX: M Status: REG ER SPEC: [id number] ROSAS: 02/24/19-[address] [facility] [address]: Mohini Feliz MD REQ: [id number] RECD: 02/24/190016 STATUS: AB SCHULTZ DR: Leon Herman MD _ SOURCE: BLOOD,VENO SPDES: ORDERED: Blood Cult Procedure Result Reported Site Aerobic Culture Bottle Final 03/01/19- 0018 ML No Growth Day 5 Anaerobic Culture Bottle Final 03/01/19- 0018 ML No Growth Day 5 * ML - Main Lab . END OF REPORT DEPARTMENT OF PATHOLOGY, [address] [place] [address] Liam Oshea M.D. Director [facility] # [id number] 13 The urine specimen was tested at the listed cutoffs: Drug class test level (ng/mL) Amphetamines 500 Barbiturates 200 Benzodiazepine metabolites 200 Cocaine metabolites 150 Cannabinoids 50 Opiates 300 Pcp 25 Specimen was received without chain of custody. Results should be used for medical purposes only. 14 Troponin-I testing on Plasma Separator Tubes (PST) has a known false positive rate of 0.20-0.40%. All positive troponins reflex immediately to secondary confirmatory testing. Using the [employer] 800 Access Immunoassay systems, the 99th percentile upper reference limit was demonstrated to be < 0.03 ng/mL. 15 Because ethnic data is not always readily [...] 15-29 5 Kidney failure <15 (or dialysis) 16 [facility] Severe Sepsis and Septic Shock Management Bundle Measure requires all lactic acids initially measuring >2.0 mmol/L be repeated. 17 Standard intensity warfarin therapeutic range: 2.0-3.0 High intensity warfarin therapeutic range: 2.5-3.5 18 Pharmacist Intern: [id number] 19 Consistent with Previous Results Reported on 11/29/2018. 20 Consistent with Previous Results Reported on 11/29/2018. 21 Platelet count confirmed by estimate Procedures Date Code Description Status 03/08/2019 53937 Colonoscopy Flexible Diagnostic Completed 03/08/2019 49713614 Colonoscopy Completed Medical Devices Description No Information Available Encounters Type Date Location Provider Dx Diagnosis Office Visit 05/27/2019 [facility] Darcie Galdamez, F10.239 Alcohol dependence 9:55a lalito Sánchez M.D. with withdrawal, Hospitalists unspecified E11.9 Type 2 diabetes mellitus without complications K57.80 Dvtrcli of intest, part unsp, w perf and abscess w/o bleed D69.6 Thrombocytopenia, unspecified Office Visit 05/26/2019 [facility] Darcie F10.10 Alcohol abuse, 9:55a lalito Sánchez M.D. uncomplicated Hospitalists E11.9 Type 2 diabetes mellitus without complications D69.6 Thrombocytopenia, unspecified F32.9 Major depressive disorder, single episode, unspecified Office Visit 05/25/2019 [facility] Darcie F10.10 Alcohol abuse, 9:54a lalito Sánchez M.D. uncomplicated Hospitalists E11.9 Type 2 diabetes mellitus without complications D69.6 Thrombocytopenia, unspecified F32.9 Major depressive disorder, single episode, unspecified Office Visit 05/24/2019 [facility] Tricia F10.239 Alcohol 9:53a [facility] [place] dependence with Hospitalists withdrawal, unspecified E11.9 Type 2 diabetes mellitus without complications D69.6 Thrombocytopenia, unspecified F32.9 Major depressive disorder, single episode, unspecified Office Visit 05/14/2019 3:00p [facility] Internal Lupe Cabrales MD F10.11 Alcohol abuse, in Medicine - Suite remission R E11.9 Type 2 diabetes mellitus without complications G40.909 Epilepsy, unsp, not intractable, without status epilepticus F41.9 Anxiety disorder, unspecified Office Visit 03/13/2019 [facility], E11.65 Type 2 diabetes 4:20p Endocrinology of MD mellitus with [facility] hyperglycemia F10.11 Alcohol abuse, in remission 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 D50.9 Iron deficiency 4:15p MD Esau anemia, unspecified K59.00 Constipation, unspecified Assessments Date Code Description Provider 07/05/2019 F10.11 Alcohol abuse, in remission Leon Herman MD 07/05/2019 G40.89 Other seizures Leon Herman MD 07/05/2019 E11.9 Type 2 diabetes mellitus without Leon Herman MD complications 05/27/2019 F10.239 Alcohol dependence with withdrawal, Darcie Galdamez M.D. unspecified 05/27/2019 E11.9 Type 2 diabetes mellitus without Darcie Galdamez M.D. complications 05/27/2019 K57.80 Diverticulitis of intestine, part Darcie Galdamez M.D. unspecified, with perforation and abscess without bleeding 05/27/2019 D69.6 Thrombocytopenia, unspecified Darcie Galdamez M.D. 05/26/2019 F10.10 Alcohol abuse, uncomplicated Darcie Galdamez M.D. 05/26/2019 E11.9 Type 2 diabetes mellitus without Darcie Galdamez M.D. complications 05/26/2019 D69.6 Thrombocytopenia, unspecified Darcie Galdamez M.D. 05/26/2019 F32.9 Major depressive disorder, single episode, Darcie Galdamez M.D. unspecified 05/25/2019 F10.10 Alcohol abuse, uncomplicated Darcie aGldamez M.D. 05/25/2019 E11.9 Type 2 diabetes mellitus without Darcie Galdamez M.D. complications 05/25/2019 D69.6 Thrombocytopenia, unspecified Darcie Galdamez M.D. 05/25/2019 F32.9 Major depressive disorder, single episode, aDrcie Galdamez M.D. unspecified 05/24/2019 F10.239 Alcohol dependence with withdrawal, SUKUMAR Mcmillan unspecified 05/24/2019 E11.9 Type 2 diabetes mellitus without SUKUMAR Mcmillan complications 05/24/2019 D69.6 Thrombocytopenia, unspecified SUKUMAR Mcmillan 05/24/2019 F32.9 Major depressive disorder, single episode, SUKUMAR Mcmillan unspecified 05/14/2019 F10.11 Alcohol abuse, in remission Lupe Cabrales MD 05/14/2019 E11.9 Type 2 diabetes mellitus without Lupe Cabrales MD complications 05/14/2019 G40.909 Epilepsy, unspecified, not intractable, Lupe Cabrales MD without status epilepticus 05/14/2019 F41.9 Anxiety disorder, unspecified Lupe Cabrales MD 03/13/2019 E11.65 Type 2 diabetes mellitus with hyperglycemia Tomasz Edward MD 03/13/2019 F10.11 Alcohol abuse, in remission Tomasz Edward MD 03/13/2019 Z79.4 shelter (current) use of insulin Tomasz Edward MD 03/08/2019 D50.9 Iron deficiency anemia, unspecified Bakari Cifuentes MD 03/08/2019 D69.6 Thrombocytopenia, unspecified Bakari Cifuentes MD 03/08/2019 K70.30 Alcoholic cirrhosis of liver without ascites Bakari Cifuentes MD 01/28/2019 D50.9 Iron deficiency anemia, unspecified Bakari Cifuentes MD 01/28/2019 K59.00 Constipation, unspecified Bakari Cifuentes MD Plan of Treatment Future Appointment(s):11/05/2019 8:00 am - Leon Herman MD at [facility] Internal Medicine - [address]/22/2019 8:00 am - Lupe Cabrales MD at [facility] Internal Medicine - Suite 07/05/2019 - Leon Herman MDF10.11 Alcohol abuse, in remissionComments: Continue the AA,therapist and CARS meetings. Continue the Naltrexone shots monthly. Continue the folic acid and B Complex and gabapentin.Follow up:4 month f/u. Can cancel 07/22 appointment.G40.89 Other seizuresComments:Call Neurology to establish an initial consult given the long lead time. I do suspect your seizures are mostly related to alcohol withdrawal.E11.9 Type 2 diabetes mellitus without complicationsComments:Continue the metformin. Your last A1c was 5.5. Avoid alcohol. Functional Status Description No Information Available Mental Status Description No Information Available Referrals Refer to Dr Reason for Referral Status Appt Date Osmar Olivarez MD 5 episodes of seizure in life, recent seizure Sent due to alcohol withdrwal, do eeg to evaluate underlying epilepsy [address] [place] [address] [place] [address] [phone]
--- OUTSIDE RECORDS SUMMARY | 2019-08-14 09:16 | XMS REPORT ---
:1965 Author Organization [facility] Care Team Providers Name Role Phone ZEFERINO GUZMAN Primary Care Physician Unavailable Allergies, Adverse Reactions, Alerts Allergy Code CodeSystem Reaction Severity Criticality Status Start Substance Date Moderate Medications Medication Medication Medication Start Stop Route Dose Status Fill Code CodeSystem Date Date Instructions RxNorm Problems Problem Name Code CodeSystem Alternate Alternate Start End Status Narrative Code CodeSystem Date Date Unspecified 32032333 SNOMED-CT 2018-06 Active anxiety 2-13 disorder Relevant diagnostic tests/laboratory data Narrative No Information Procedures Procedure Code CodeSystem Target Date of Status Service Device Device Device Name Site Procedure Delivery Code Name UID Location Psychother 8205020 SNOMED-CT () 2019-05-23 completed Mental apy, 45 4 Health- minutes [place] with [address], [id number] Psychother 8042865 SNOMED-CT () 2019-06-19 completed Mental apy, 45 4 Health- minutes [place] with [address], [id number] SNOMED-CT () 2019-05-[address], [id number] SNOMED-CT () 2019-05-[address], [id number] Encounters/Encounter Diagnoses Encounter Name Encounter Diagnosis Diagnosis Diagnosis Date of Service Code Code Name CodeSystem Diagnosis Delivery Location Psychotherapy - 08721 [id number] Unspecified SNOMED-CT 2019-06-26 Behavioral Individual 30 anxiety [facility] disorder [facility] , , , Vital Signs No Information Social History Element Description Description Start End Code CodeSystem AdditionalInfo Date Date SexAssignedAtBirth Male 1966-0 M AdministrativeGender 7-10 Hospital Discharge Instructions Reason For Referral Medical Equipment FDA Assessments
--- OUTSIDE RECORDS SUMMARY | 2019-08-14 09:16 | XMS REPORT ---
:1965 Author Organization [facility] Care Team Providers Name Role Phone ZEFERINO GUZMAN Primary Care Physician Unavailable Allergies, Adverse Reactions, Alerts Allergy Code CodeSystem Reaction Severity Criticality Status Start Substance Date Moderate Medications Medication Medication Medication Start Stop Route Dose Status Fill Code CodeSystem Date Date Instructions RxNorm Problems Problem Name Code CodeSystem Alternate Alternate Start End Status Narrative Code CodeSystem Date Date Unspecified [id number] SNOMED-CT 2018-06 Active anxiety 2-13 disorder Relevant diagnostic tests/laboratory data Narrative No Information Procedures Procedure Code CodeSystem Target Date of Status Service Device Device Device Name Site Procedure Delivery Code Name UID Location SNOMED-CT () 2019-05-[address], [id number] SNOMED-CT () 2019-05-[address], [id number] Psychother [id number] SNOMED-CT () 2019-05-23 completed Mental apy, 45 4 Health- minutes [place] with [address], [id number] Psychother [id number] SNOMED-CT () 2019-06-19 completed Mental apy, 45 4 Health- minutes [place] with [address], [id number] Psychother [id number] SNOMED-CT () 2019-06-26 completed Mental apy, 45 4 Health- minutes [place] with [address], [id number] Encounters/Encounter Diagnoses Encounter Name Encounter Diagnosis Diagnosis Diagnosis Date of Service Code Code Name CodeSystem Diagnosis Delivery Location Psychotherapy - [id number] Unspecified SNOMED-CT 2019-07-03 Behavioral Individual 30 anxiety Health min disorder Clinic , , , Vital Signs No Information Social History Element Description Description Start End Code CodeSystem AdditionalInfo Date Date SexAssignedAtBirth Male 1966-0 M AdministrativeGender 7-10 Hospital Discharge Instructions Reason For Referral Medical Equipment FDA Assessments
--- OUTSIDE RECORDS SUMMARY | 2019-08-14 09:16 | XMS REPORT | Continuity of Care Document ---
:1965 External Reference #:[id number] Author Name Leon Herman MD (transmitted by agent of provider Macarena Felder) Address [address] [place] [id number] Care Team Providers Name Role Phone Leon Herman MD - Hospitalist Care Team Information Metal Flow Coordinator [phone] Problems Active Problems Provider Date Type 2 [...] Result H/L Range Note CBC Auto 05/24/2019 [facility] White Blood 5.0 10^3/uL Normal 3.5-10.[address] [place] [address] [phone] Red Blood Count 4.51 10^6/uL Normal 4.18-5.48 [...] Blood Cells % 0.2 Laboratory test 05/24/2019 [facility] Lactic Acid 1.8 mmol/L Normal 0.5-2.0 [address] [place] [address] [phone] Comp Metabolic 05/24/2019 [facility] Sodium 140 mmol/L Normal 135-[address] [place] [address] [phone] Potassium 4.1 mmol/L Normal 3.5-5.0 Chloride 99 [...] Egfr 137.1 >60 2 Laboratory test 05/24/2019 [facility] Lipase < 10 U/L Low 11.0 -82.[address] [place] [address] [phone] Troponin-I (TnI) 0.01 ng/mL <0.03 3 Alcohol < 10 mg/dL Normal <10 Urinalysis Profile 05/24/2019 [facility] Urine Color Celi [address] [place] [address] [phone] Urine Appearance Cloudy Urine Specific [place] 1.019 Normal 1.010-1.030 Urine pH 9.0 Normal [...] Present Abnormal Absent Urine Culture And 05/24/2019 [facility] Urine SEE RESULT [address] [place] [address] [phone] CBC Auto Diff 05/16/2019 [facility] White Blood 4.9 10^3/uL Normal 3.5-[address] Count 0.8 [place] [address] [phone] Red Blood Count 4.43 10^6/uL Normal 4.18-5.48 [...] Blood Cells % 0.1 Comp Metabolic 05/16/2019 [facility] Sodium 141 mmol/L Normal 135-[address] [place] [address] [phone] Potassium 3.8 mmol/L Normal 3.5-5.0 Chloride 102 [...] Egfr 139.3 >60 5 Laboratory test 05/16/2019 [facility] Vitamin B12 804 pg/mL Normal 180-914 [address] [place] [address] [phone] Laboratory test 03/13/2019 [facility] Hemoglobin A1c 5.5 % Normal 4.0-5.[address] (Glyco HGB) [place] [address] [phone] Basic Metabolic 03/13/2019 [facility] Sodium 140 Normal 135- [address] mmol/[place] [address] [phone] Potassium 4.0 mmol/L Normal 3.5-5.0 Chloride 104 mmol/L Normal 101-111 Co2 Carbon Dioxide 28 mmol/L Normal 22-32 Anion Gap 8 mmol/L Normal 2-11 Glucose 90 mg/dL Normal 70-100 Blood Urea Nitrogen 11 mg/dL Normal 6-24 Creatinine 0.82 mg/dL Normal 0.67-1.17 BUN/Creatinine Ratio 13.4 Normal 8-20 Calcium 9.9 mg/dL Normal 8.6-10.3 Egfr Non- 99.1 >60 Egfr 119.9 >60 8 Laboratory 03/08/2019 [facility] Point of Care 125 High 70- 100 [address] Glucose mg/[place] [address] [phone] Laboratory 02/24/2019 [facility] Pathologist (SEE [address] Review NOTE) [place] [address] [phone] CBC Auto Diff 02/24/2019 [facility] White Blood 8.3 Normal 3.5 -10.[address] Count 10^3/[place] [address] [phone] Red Blood Count 4.73 10^6/uL Normal 4.18-5.48 [...] Red Blood Cells % 0.0 Laboratory 02/24/2019 [facility] Blood Culture SEE RESULT [address] [place] [address] [phone] Urine Drug SCR 02/24/2019 [facility] Urine None None ED & Pain [address] Amphetamine [place]ed [place] [address] Screen [phone] Urine Barbiturates Screen None Detected None Detect Urine Benzodiazepine Screen None Detected None Detect Urine Cannabinoids Screen None Detected None Detect Urine Cocaine Screen None Detected None Detect Urine Opiates Screen None Detected None Detect Urine Phencyclidine Screen None Detected None Detect 13 Urinalysis Profile 02/24/2019 [facility] Urine Color Yellow [address] [place] [address] [phone] Urine Appearance Clear Urine Specific [place] 1.014 Normal 1.010-1.030 Urine pH 6.0 Normal [...] Casts Present Abnormal Absent Laboratory test 02/24/2019 [facility] Magnesium 2.0 mg/dL Normal 1.9-2.[address] [place] [address] [phone] Troponin-I (TnI) 0.01 ng/mL <0.04 14 Alcohol < 10 mg/dL Normal <10 Comp Metabolic 02/24/2019 [facility] Sodium 137 mmol/L Normal 135-145 Panel [address] [place] [address] [phone] Potassium 3.3 mmol/L Low 3.5-5.0 Chloride 104 [...] Egfr 116.6 >60 15 Laboratory test 02/24/2019 [facility] Lactic Acid 1.3 mmol/L Normal 0.5-2.0 16 finding [address] [place] [address] [phone] Inr/Protime 02/24/2019 [facility] Inr 1.15 High 0.82-1.09 17 [address] [place] [address] [phone] Laboratory test 02/23/2019 [facility] Point of 93 mg/dL Normal 70-100 18 finding 101 [facility] [place] [place] [address] Glucose [phone] Iron & Iron 01/07/2019 [facility] Iron 32 g/dL Low 50-212 Binding 101 [facility] [place] [place] [address] [phone] Unsaturated Iron Binding < 486 g/dL Total Iron Binding Capacity 501 g/dL High 250-450 Transferrin 358 mg/dL Normal 203-362 % Iron Saturation 6 % Low 15-55 Laboratory test 01/07/2019 [facility] Ferritin 15.2 Low 24- 336 finding [address] [facility] ng/[place] [address] [phone] CBC Auto Diff 01/07/2019 [facility] White Blood 6.6 Normal 3.5 -10.[address] Count 10^3/[place] [address] [phone] Red Blood Count 5.39 10^6/uL Normal 4.18-5.48 [...] Blood Cells % 0.0 Cell Morphology 01/07/2019 [facility] Microcytosis 1+ [address] [place] [address] [phone] Hypochromasia 1+ Anisocytosis 2+ Elliptocyte 1+ 1 [...] immediately to secondary confirmatory testing. Using the [employer] 800 Access Immunoassay systems, the 99th percentile upper reference limit was demonstrated to be < 0.03 ng/mL. 4 SEE RESULT BELOW Name: ABDULLAHI VANESSA : [address]: Darcie Vázquez MD Acct: [id number] Unit: [id number] AGE: 53 Location: [place] [address] Re05/24/19 SEX: M Status: ADM IN SPEC: [id number] ROSAS: 05/24/19-1350 [facility] [address]: Alvaro PATINO REQ: [id number] RECD: 05/24/19-1431 STATUS: AB SCHULTZ DR: Grant Herman MD _ SOURCE: URINE SPDESC: ORDERED: Urine Culture Procedure Result Reported Site Urine Culture Final 05/25/19- 1430 ML No Growth (<1,000 CFU/mL) * ML - Main Lab . END OF REPORT DEPARTMENT OF PATHOLOGY, [address] [place] [address] Liam Oshea M.D. Director [facility] # [id number] 5 Because ethnic data is not always [...] in selective patients <6.0%. Please refer to [place] [employer] diabetic care guidelines for further [...] 5 Kidney failure <15 (or dialysis) 9 Crabber: [id number] 10 Normocytic anemia with thrombocytopenia noted. No blasts or evidence of hemolysis identified. Additional studies as clinically warranted. Reviewed by Dr. Oshea 11 Consistent with Previous Results Reported on 01.07.19 12 SEE RESULT BELOW Name: ABDULLAHI VANESSA : [address]: Mohini Feliz MD Acct: [id number] Unit: [id number] AGE: 53 Location: ED Re02/23/19 SEX: M Status: REG ER SPEC: [id number] ROSAS: 02/24/19-0009 [facility] DR: Mohini Feliz MD REQ: [id number] RECD: 02/24/190016 STATUS: AB SCHULTZ DR: Leon Herman MD _ SOURCE: BLOOD,VENO SPDES: ORDERED: Blood Cult Procedure Result Reported Site Aerobic Culture Bottle Final 03/01/19- 0018 ML No Growth Day 5 Anaerobic Culture Bottle Final 03/01/19- 0018 ML No Growth Day 5 * ML - Main Lab . END OF REPORT DEPARTMENT OF PATHOLOGY, [address] [place] [address] Liam Oshea M.D. Director [facility] # [id number] 13 The urine specimen was tested at [...] immediately to secondary confirmatory testing. Using the [employer] 800 Access Immunoassay systems, the 99th percentile [...] 5 Kidney failure <15 (or dialysis) 16 [facility] Severe Sepsis and Septic Shock Management Bundle Measure requires all lactic acids initially measuring >2.0 mmol/L be repeated. 17 Standard intensity warfarin therapeutic range: 2.0-3.0 High intensity warfarin therapeutic range: 2.5-3.5 18 Crabber: [id number] 19 Consistent with Previous Results Reported on 11/29/2018. 20 Consistent with Previous Results Reported on 11/29/2018. 21 Platelet count confirmed by estimate Procedures Date Code Description Status 03/08/2019 16219 Colonoscopy Flexible Diagnostic Completed 03/08/2019 04976982 Colonoscopy Completed Medical Devices Description No Information Available Encounters Type Date Location Provider Dx Diagnosis Office Visit 05/27/2019 [facility] Darcie Galdamez, F10.239 Alcohol dependence 9:55a lalito Sánchez M.D. 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 uncomplicated Hospitalists E11.9 Type 2 diabetes mellitus without complications D69.6 Thrombocytopenia, unspecified F32.9 Major depressive disorder, single episode, unspecified Office Visit 05/25/2019 [facility] Darcie F10.10 Alcohol abuse, 9:54a lalito Sánchez M.D. uncomplicated Hospitalists E11.9 Type 2 diabetes mellitus without complications D69.6 Thrombocytopenia, unspecified F32.9 Major depressive disorder, single episode, unspecified Office Visit 05/24/2019 [facility] Tricia F10.239 Alcohol 9:53a [facility] [place] dependence with Hospitalists withdrawal, unspecified E11.9 Type 2 diabetes mellitus without complications D69.6 Thrombocytopenia, unspecified F32.9 Major depressive disorder, single episode, unspecified Office Visit 05/14/2019 3:00p [facility] Internal Lupe Cabrales MD F10.11 Alcohol abuse, in Medicine - Suite remission R E11.9 Type 2 diabetes mellitus without complications G40.909 Epilepsy, unsp, not intractable, without status epilepticus F41.9 Anxiety disorder, unspecified Office Visit 03/13/2019 [facility] Coch, E11.65 Type 2 diabetes 4:20p Endocrinology of MD mellitus with [facility] hyperglycemia F10.11 Alcohol abuse, in remission 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 D50.9 Iron deficiency 4:15p [...] unspecified 05/25/2019 F10.10 Alcohol abuse, uncomplicated Darcie Galdamez M.D. 05/25/2019 E11.9 Type 2 diabetes mellitus without Darcie Galdamez M.D. complications 05/25/2019 D69.6 Thrombocytopenia, unspecified Darcie Galdamez M.D. 05/25/2019 F32.9 Major depressive disorder, single episode, Darcie Galdamez M.D. unspecified 05/24/2019 F10.239 Alcohol dependence [...] in remission Tomasz Edward MD 03/13/2019 Z79.4 penitentiary (current) use of insulin Tomasz Edward MD 03/08/2019 D50.9 Iron deficiency anemia, unspecified Bakari Cifuentes MD 03/08/2019 D69.6 Thrombocytopenia, unspecified Bakari Cifuentes MD 03/08/2019 K70.30 Alcoholic cirrhosis of liver without ascites Bakari Cifuentes MD 01/28/2019 D50.9 Iron deficiency anemia, unspecified Bakari Cifuentes MD 01/28/2019 K59.00 Constipation, unspecified Bakari Cifuentes MD Plan of Treatment Future Appointment(s):11/05/2019 8:00 am - Leon Herman MD at [facility] Internal Medicine - [address]/22/2019 8:00 am - Lupe Cabrales MD at [facility] Internal Medicine - Suite 07/05/2019 - Leon [...] withdrwal, do eeg to evaluate underlying epilepsy [address] [place] [address] [phone]
[2019-08-14 09:18] LABS: ABS Eosinophils 0.1 10^3/ul (0-0.6); ABS Lymphocytes 0.6 10^3/ul (1.0-4.8); ABS Monocytes 0.5 10^3/ul (0-0.8); ABS Neutrophils 2.6 10^3/ul (1.5-7.7); Hematocrit 41 % (42-52); Hemoglobin 14.3 g/dL (14.0-18.0); Mean Corpuscular HGB Conc 35 g/dL (31-36); Mean Corpuscular Hemoglobin 35 pg (27-31); Mean Corpuscular Volume 99 fL (80-94); Mean Platelet Volume 8.3 fL (7.4-10.4); Platelet Count 65 10^3/uL (150-450); Red Blood Count 4.16 10^6 /uL (4.18-5.48); Red Cell Distribution Width 17 % (10-15); White Blood Count 3.9 10^3/uL (3.5-10.8)
--- NOTE | 2019-08-14 09:20 | ED ---
Substance Abuse/Use - HPI Summary HPI Summary: Pt. is a 53 y.o male who presents to the ER requesting alcohol detox. Pt. has a hx of withdrawal seizures. Pt. was admitted [place] [facility] [place] and sent to [facility]. Pt. states he was there for about a month and then shortly after started drinking again. Pt. states he has been trying to ween himself down over the last few days. Last drink 0600 today. Pt. requesting inpt. treatment again. Pt. states he feels like he is starting to go into withdrawal and has complaints of anxiety and feeling tremulous. Otherwise denies cp, sob, abd. pain, vomiting. Sxs are moderate in severity. No current modifying factors. - History Of Current Complaint Chief Complaint: EDDetoxRequest Stated Complaint: DETOXING/HX SEIZURES PER PT Time Seen by Provider: 08/14/19 08:26 Hx Obtained From: Patient - Allergies/Home Medications Allergies/Adverse Reactions: Allergies Allergy/AdvReac Type Severity Reaction Status Date / Time No Known Allergies Allergy Verified 08/14/19 08:25 Home Medications: Home Medications Folic Acid TAB* [Folvite TAB*] 800 mcg PO DAILY 01/30/19 [History Confirmed 09/29] Metformin HCl [Metformin HCl ER] 1,500 mg PO BID 01/30/19 [History Confirmed 09/29] Mv-Min/Iron/Folic/Calcium/Vitk [Women's Daily Formula Tablet] 1 tab PO DAILY [History Confirmed 08/14/19] Fluoxetine HCl 20 mg PO DAILY 05/24/19 [History Confirmed 08/14/19] Gabapentin CAP(*) [Neurontin 100 mg CAP(*)] 100 mg PO TID 08/14/19 [History Confirmed 08/14/19] Magnesium Oxide TAB* [MagOx 400 TAB*] 400 mg PO DAILY 08/14/19 [History Confirmed 08/14/19] Potassium Chlor TAB (NF) [Kaon-Cl-10 TAB (NF)] 10 meq PO DAILY 08/14/19 [ History Confirmed 08/14/19] Vitamin B Complex TAB* [B Complex-50*] 1 tab PO DAILY 08/14/19 [History Confirmed 08/14/19] PMH/Surg Hx/FS Hx/Imm Hx Endocrine/Hematology History: Reports: Hx Diabetes - new diagnosis Denies: Hx Anticoagulant Therapy Cardiovascular History: Reports: Hx Hypertension Respiratory History: Reports: Other Respiratory Problems/Disorders - HOSPITALIZED FOR PLEURAL EFFUSION 11/2014. History: Reports: Hx Acute Renal Failure - this admission, no history Sensory History: Denies: Hx Contacts or Glasses, Hx Deafness, Hx Hearing Aid Opthamlomology History: Denies: Hx Contacts or Glasses Neurological History: Reports: Hx Seizures - last seizure three weeks ago Psychiatric History: Reports: Hx Anxiety, Hx Depression, Hx Substance Abuse - Surgical History Surgery Procedure, Year, and Place: Right & left inguinal, umbilical hernia surgeries (all 15+ years ago) Hx Anesthesia Reactions: No - Immunization History Date of Tetanus Vaccine: utd Date of Influenza Vaccine: none Infectious Disease History: No Infectious Disease History: Denies: Traveled Outside the [place] in Last 30 Days - Family History Known Family History: Positive: Unknown - Patient adopted, Non-Contributory - Social History Alcohol Use: Daily Alcohol Amount: last drink 3 shots vodka 08/14/2019 0600 Hx Substance Use: Yes - etoh Substance Use Type: Reports: None Substance Use Comment - Amount & Last Used: very rarely Hx Tobacco Use: No Smoking Status (MU): Current Some Day Smoker Review of Systems Constitutional: Negative Cardiovascular: Negative Respiratory: Negative Gastrointestinal: Negative Neurological/Mental Status: Negative Positive: Anxious All Other Systems Reviewed And Are Negative: Yes Physical Exam Triage Information Reviewed: Yes Vital Signs On Initial Exam: Initial Vitals Temp Pulse Resp BP Pulse Ox 97.8 F 83 16 166/110 97 08/14/19 08:22 08/14/19 08:22 08/14/19 08:22 08/14/19 08:22 08/14/19 08:22 Vital Signs Reviewed: Yes Appearance: Positive: Well-Appearing - Pt. sitting up in bed in NAD. Skin: Positive: Warm, Dry Head/Face: Positive: Normal Head/Face Inspection Eyes: Positive: Normal, EOMI, CESAR Neck: Positive: Supple Respiratory/Lung Sounds: Positive: Clear to Auscultation, Breath Sounds Present Cardiovascular: Positive: Normal, RRR Musculoskeletal: Positive: Normal, Strength/ROM Intact Neurological: Positive: Normal, CN Intact II-III Psychiatric: Positive: Affect/Mood Appropriate Procedures - Sedation Patient Received Moderate/Deep Sedation with Procedure: No Diagnostics - Vital Signs Vital Signs Temp Pulse Resp BP Pulse Ox 08/14/19 09:19 18 08/14/19 08:48 21 08/14/19 08:22 97.8 F 83 16 166/110 97 - Laboratory Lab Results: Lab Results 08/14/19 Range/Units 09:06 WBC 3.9 (3.5-10.8) 10^3/uL RBC 4.16 L (4.18-5.48) 10^6 /uL Hgb 14.3 (14.0-18.0) g/dL Hct 41 L (42-52) % MCV 99 H (80-94) fL MCH 35 H (27-31) pg MCHC 35 (31-36) g/dL RDW 17 H (10-15) % Plt Count 65 L (150-450) 10^3/uL MPV 8.3 (7.4-10.4) fL Neut % (Auto) 67.4 % Lymph % (Auto) 16.0 % Mathews % (Auto) 13.9 % Eos % (Auto) 2.0 % Baso % (Auto) 0.7 % Absolute Neuts (auto) 2.6 (1.5-7.7) 10^3/ul Absolute Lymphs (auto) 0.6 L (1.0-4.8) 10^3/ul Absolute Monos (auto) 0.5 (0-0.8) 10^3/ul Absolute Eos (auto) 0.1 (0-0.6) 10^3/ul Absolute Basos (auto) 0.0 (0-0.2) 10^3/ul Absolute Nucleated RBC 0.0 10^3/ul Nucleated RBC % 0.0 Result Diagrams: 08/14/19 09:06 08/14/19 09:06 Lab Statement: Any lab studies that have been ordered have been reviewed, and results considered in the medical decision making process. Course/Dx - Course Course Of Treatment: Pt. presenting with c/o ETOH withdrawal and requesting detox. HTN. No visible tremor. Pt. given banana bag and ativan. Social service consulted. ECG done at 0855 shows a sinus rhythm of 75bpm, prolonged QTC, normal axis, no STEMI. Labs at baseline. NELLIE Hsu met with pt. and was able to get him an inpt. bed at [facility] in [place] for detox and inpt. treatment. She offered to facilitate medicaid cab but pt. states his friend can drive him. Pt. agreeable with plan. Will be dc to go directly to inpt. at [place]. WIll return to er if needed. - Diagnoses Differential Diagnosis/HQI/PQRI: Positive: Alcohol Abuse, Alcohol Withdrawal Provider Diagnoses: Alcoholism Discharge ED - Sign-Out/Discharge Documenting (check all that apply): Patient Departure - Discharge Plan Condition: Good Disposition: HOME Patient Education Materials: Alcohol Withdrawal (ED) Referrals: Leon Herman MD [Primary Care Provider] - Additional Instructions: Please go directly to [facility]: [facility] [phone] [place] [address] [address] [place] [address] Return [place] [facility] if needed - Billing Disposition and Condition Condition: GOOD Disposition: Home
[2019-08-14 09:35] LABS: Albumin 4.3 g/dL (3.2-5.2); Albumin/Globulin Ratio 1.5 (1-3); BUN/Creatinine Ratio 19.4 (8-20); Calcium 8.8 mg/dL (8.6-10.3); EGFR African American 165.5 (>60); EGFR Non-African American 136.8 (>60); Globulin 2.9 g/dL (2-4); Potassium 3.6 mmol/L (3.5-5.0); Total Protein 7.2 g/dL (6.4-8.9)
[2019-08-14 10:59] VITALS: BP 145/92
== END 2019-08-14 10:58 | disposition home or self-care (01) ==
LOC: ED 08:18
DX: F10.230 Alcohol dependence with withdrawal, uncomplicated (principal); I44.5 Left posterior fascicular block; E11.9 Type 2 diabetes mellitus without complications; Z79.84 Long term (current) use of oral hypoglycemic drugs; I10 Essential (primary) hypertension; N17.9 Acute kidney failure, unspecified; F32.9 Major depressive disorder, single episode, unspecified; Z72.0 Tobacco use
CPT/HCPCS: 36415; 80053; 80320; 83690; 85025; 93005; 96374; 96375; 99283; G0480; J2060; J3411

== ENCOUNTER 2024-06-10 20:24 | Observation (INO) ==
[2024-06-10 21:36] LABS: ABS Basophils 0.1 10^3/uL (0.0-0.1); ABS Eosinophils 0.3 10^3/uL (0.0-0.5); ABS Lymphocytes 1.8 10^3/uL (1.0-4.8); ABS Monocytes 0.6 10^3/uL (0.0-1.1); ABS Neutrophils 4.4 10^3/uL (1.5-7.6); Eosinophil % 4.1 %; Hematocrit 41.2 % (38-53); Hemoglobin 14.6 g/dL (13.2-16.3); Lymphocyte % 24.9 %; Mean Corpuscular Hemoglobin 35.9 pg (27-33); Mean Corpuscular Hgb Conc 35.3 g/dL (31-36); Mean Corpuscular Volume 101.6 fL (80-97); Mean Platelet Volume 9.2 fL (7.5-11.2); Nucleated Red Blood Cells % 0.1 %/100WBC (0.0-0.8); Platelet Count 116 10^3/uL (150-450); Red Blood Count 4.06 10^6/uL (4.06-5.63); Red Cell Distribution Width 15.7 % (12-17); White Blood Count 7.1 10^3/uL (3.6-10.2)
[2024-06-10 22:34] LABS: Albumin 4.5 g/dL (3.5-5.7); Creatinine, Serum 0.71 mg/dL (0.67-1.17); Globulin 2.3 g/dL (2-4); Magnesium 1.9 mg/dL (1.9-2.7); Potassium 3.5 mmol/L (3.5-5.0); Total Bilirubin 0.8 mg/dL (0.2-1.0); Total Protein 6.8 g/dL (6.4-8.9); eGFR CKD-EPI 107.7 (>60)
[2024-06-11] MEDS ORDERED: Lorazepam PYXIS KEY PRN (14:39)
[2024-06-11] MEDS ORDERED: Dextrose 50% Syringe 50 ml 25 GM/50 ML SYRINGE IV PUSH PRN (14:46)
[2024-06-11] MEDS ORDERED: LORazepam 2 mg VIAL 1 ml IV PUSH SCH (15:00)
[2024-06-11] MEDS: Multivitamins/Minerals TAB PO SCH (15:25)
[2024-06-11] MEDS ORDERED: Polyethylene Glycol 3350 17 GM PACKET PO PRN (16:47)
[2024-06-11] MEDS ORDERED: Al Hydrox/Mg Hydrox/Simet LIQ 30 ML UDC PO PRN (16:47)
[2024-06-13 09:58] VITALS: BP 154/91
== END 2024-06-13 11:45 | disposition home or self-care (01) ==
LOC: ED 20:24 → EDHOLD 20:24 → SUATTDRO 06-11 14:42 → MEDTELE 06-11 15:08
PROVIDERS: ADMIT Internal Medicine; ATTEND Student in an Organized Health Care Education/Training Program